=== PATIENT | male | born 1930 | race Caucasian/White ===

== ENCOUNTER 2016-10-24 18:34 | Emergency (ER) | payer MEDICARE, OTHER ==
--- NOTE | 2016-10-24 19:29 | UC ---
HPI Febrile Illness - HPI Summary HPI Summary: Fever today and feels foggy, right leg tender swollen-had a torn Achilles tendon , the swelling resolved but is now getting very swollen and tender has calf pain and tender erythema anterior lower leg - History of Current Complaint Chief Complaint: UCGeneralIllness Time Seen by Provider: 10/24/16 18:45 Hx Obtained From: Patient Onset/Duration: Started Hours Ago, Still Present Time of Onset: 08:00 Timing: Constant Temperature: 100.8 F Initial Severity: Moderate Current Severity: Moderate Aggravating Factors: Nothing Alleviating Factors: Nothing Associated Signs and Symptoms: Negative, Leg Swelling, Myalgia, Weakness, Other : - feels "Off" - Allergy/Home Medications Allergies/Adverse Reactions: Allergies Allergy/AdvReac Type Severity Reaction Status Date / Time Penicillins Allergy Unknown Unknown Verified 10/24/16 20:05 Reaction Details Home Medications: Home Medications Eplerenone [Inspra] 25 mg PO DAILY 10/24/16 [History Confirmed 10/24/16] Levothyroxine TAB* [Synthroid TAB*] 50 mcg PO DAILY 10/24/16 [History Confirmed 10/24/16] PMH/Surg Hx/FS Hx/Imm Hx Previously Healthy: No Endocrine/Hematology History: Reports: Hx Thyroid Disease Denies: Hx Diabetes Cardiovascular History: Reports: Hx Coronary Artery Disease - mild, Hx Hypercholesterolemia, Hx Hypertension, Hx Valvular Heart Disease - AORTIC VALVE , Other Cardiovascular Problems/Disorders - aortic stenosis Denies: Hx Angina, Hx Pacemaker/ICD Respiratory History: Denies: Hx Asthma, Hx Chronic Obstructive Pulmonary Disease (COPD) History: Denies: Hx Dialysis, Hx Renal Disease Sensory History: Denies: Hx Hearing Aid Neurological History: Denies: Hx CVA Psychiatric History: Denies: Hx Panic Disorder - Surgical History Surgery Procedure, Year, and Place: 2 CORONARY STENTS JULY 2013 [facility]. AORTIC HEART VALVE REPLACEMENT- PORCELINE VALVE- 2002-[facility]. TONSILLECTOMY Infectious Disease History: Yes Infectious Disease History: Reports: Hx Hepatitis Denies: History Other Infectious Disease, Traveled Outside the [place] in Last 30 Days - Family History Known Family History: Positive: None - no cardiovascualar issues in family lineage - Social History Alcohol Use: Rare Alcohol Amount: 1 GLASS DAILY Hx Substance Use: No Substance Use Type: Reports: None Hx Tobacco Use: No Smoking Status (MU): Never Smoked Tobacco Review of Systems Constitutional: Fever, Fatigue Skin: Negative Eyes: Negative ENT: Negative Respiratory: Negative Cardiovascular: Negative Gastrointestinal: Negative Genitourinary: Negative Motor: Negative Neurovascular: Negative Musculoskeletal: Edema - right lower leg Neurological: Negative Psychological: Negative All Other Systems Reviewed And Are Negative: Yes Physical Exam Triage Information Reviewed: Yes Appearance: Well-Nourished, Ill-Appearing - mild, Pain Distress - mild Vital Signs: Initial Vital Signs Temp 98.9 F 10/24/16 18:37 Pulse 95 10/24/16 18:37 Resp 20 10/24/16 18:37 BP 134/76 10/24/16 18:37 Pulse Ox 99 10/24/16 18:37 Vital Signs Reviewed: Yes Eye Exam: Normal Eyes: Positive: Conjunctiva Clear ENT Exam: Normal ENT: Positive: Normal ENT inspection, Hearing grossly normal, Pharynx normal, TMs normal. Negative: Nasal congestion, Nasal drainage, Tonsillar swelling, Tonsillar exudate, Trismus, Muffled/hoarse voice Dental Exam: Normal Neck exam: Normal Neck: Positive: Supple, Nontender, No Lymphadenopathy Respiratory Exam: Normal Respiratory: Positive: Chest non-tender, Lungs clear, Normal breath sounds, No respiratory distress, No accessory muscle use Cardiovascular Exam: Normal Cardiovascular: Positive: RRR, No Murmur, Pulses Normal, Brisk Capillary Refill Abdominal Exam: Normal Abdomen Description: Positive: Nontender, No Organomegaly, Soft Bowel Sounds: Positive: Present Musculoskeletal Exam: Normal Musculoskeletal: Positive: Strength Intact, ROM Intact, Edema @ - right lower leg Neurological Exam: Normal Neurological: Positive: Alert, Muscle Tone Normal Psychological Exam: Normal Skin Exam: Other Skin: Positive: Other - right anterior lower leg warm and swollen Course/Dx - Course Assessment/Plan: transfer to hospital for further evaluation - Febrile Illness Differential Diagnoses: Cellulitis, Fever of Unknown Origin, Other: - DVT - Diagnoses Clinic Provider Diagnoses: right lower leg edema, febrile illness - Provider Notifications Time Discussed With Above Provider: 19:00 - david LOMELI Instructed by Provider To: Transfer Discharge - Discharge Plan Condition: Good Disposition: AGAINST MEDICAL ADVICE Referrals: Pop Santos MD [Medical Doctor] -
[2016-10-24 19:41] VITALS: BP 128/68
== END 2016-10-24 19:30 | disposition left against medical advice (07) ==
LOC: UCEAST 18:34
DX: R60.0 Localized edema (principal); E07.9 Disorder of thyroid, unspecified; I25.10 Atherosclerotic heart disease of native coronary artery without angina pectoris; Z98.61 Coronary angioplasty status; E78.00 Pure hypercholesterolemia, unspecified; I10 Essential (primary) hypertension; Z95.2 Presence of prosthetic heart valve; Z88.0 Allergy status to penicillin
CPT/HCPCS: 99212; G0463

== ENCOUNTER 2016-10-24 19:49 | Observation (INO) | payer MEDICARE, OTHER ==
[2016-10-24] MEDS ORDERED: NS 0.9% 1000 ML* 2,000 ML IV ONE (21:39)
[2016-10-24] MEDS ORDERED: cefTRIAXone(*) 1 GM in NS 0.9% 50 ML* 50 ML IVPB ONE (21:39)
[2016-10-24 22:16] LABS: Hematocrit 39 % (42-52); Hemoglobin 13.2 g/dl (14.0-18.0); Mean Corpuscular HGB Conc 34 g/dl (31-36); Mean Corpuscular Hemoglobin 32 pg (27-31); Mean Corpuscular Volume 93 fL (80-94); Mean Platelet Volume 8 um3 (7.4-10.4); Red Blood Count 4.17 10^6/ul (4.0-5.4); Red Cell Distribution Width 14 % (10.5-15); White Blood Count 12.2 10^3/ul (3.5-10.8)
[2016-10-24 22:19] LABS: Add Diff/Slide Review? Slide Review Added; Comments Flag Yes
[2016-10-24 22:32] LABS: Albumin 3.8 g/dL (3.2-5.2); BUN/Creatinine Ratio 15.5 (8-20); C Reactive Protein 11.95 mg/L (< 5.00); Calcium 9.3 mg/dL (8.6-10.3); EGFR African American 68.4 (>60); EGFR Non-African American 53.2 (>60); Globulin 3.7 g/dL (2-4); Potassium 4.4 mmol/L (3.5-5.0); Total Bilirubin 0.8 mg/dL (0.2-1.0); Total Protein 7.5 g/dL (6.4-8.9)
[2016-10-24 22:33] LABS: Troponin I 0.04 ng/mL (<0.04)
[2016-10-25] MEDS ORDERED: Melatonin (NF) 3 MG TAB PO PRN (01:08)
[2016-10-25] MEDS ORDERED: Acetaminophen TAB* 325 MG PO PRN (01:08)
[2016-10-25] MEDS ORDERED: Ondansetron INJ* 2 MG/ML VIAL IV PRN (01:08)
[2016-10-25] MEDS ORDERED: traMADol TAB* 50 MG PO PRN (01:08)
--- NOTE | 2016-10-25 01:12 | HP ---
H&P (Free Text) History and Physical: PCP: TARAS Santos MD Cardiology: Rigoberto Acevedo MD Date/Time of Evaluation: 10/25/2016 0110 CC: fever HPI: Mr Desouza is an 85YO male HX porcine AVR, HLD, "borderline" hypothyroidism , & BPH who tore his R Achilles tendon 3 months ago which has been rehab'ing well. He went to bed 10/23/2016 w/o issues and awoke noting some mild increased swelling of the R calf over it's baseline & compared to the L. Throughout the day he became progressively fatigued with increasing pain in the R foot. He noted his temperature at home to be 100.8F after feeling feverish and decided to present for evaluation becoming quite surprised at the amount of redness the R ankle/foot had developed through the day as he had not looked at it since the AM. WBCs are 12k 87% neutrophils. Troponin is 0.04. Lab values are otherwise reasonably normal for him. ECG is benign. CXR is negative. He denies chest pain , SOB, palpitations, light-headedness, sweats, cough, congestion, change in bowel/bladder, or other issues. PMedHx porcine AVR CAD/stent HLD hypothyroidism torn R Achilles 3 months ago BPH Ambulatory Orders Multivitamins/Minerals TAB* [Theragran/minerals TAB*] 1 tab PO DAILY 12/16/12 Aspirin Low Dose CHEW TAB* [Aspirin Low Dose TAB*] 81 mg PO DAILY 01/02/15 Atorvastatin* [Lipitor*] 40 mg PO DAILY 01/02/15 Finasteride TAB* [Proscar TAB*] 5 mg PO DAILY 01/02/15 [place]-3 Fatty Acids (Nf) [Fish Oil (NF)] 2,000 mg PO DAILY 01/02/15 Eplerenone [Inspra] 25 mg PO DAILY 10/24/16 Levothyroxine TAB* [Synthroid TAB*] 50 mcg PO DAILY 10/24/16 Allergies Penicillins Allergy (Unknown, Verified 10/24/16 20:05) Unknown Reaction Details PSurgHx cardiac stent porcine AVR SocHx: no HX tobacco or recreational drugs, no significant alcohol; lives with his ; 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 ROS: as above, otherwise reviewed and all were negative Constitutional: NAD, normally developed, overweight white male vitals: Vital Signs Temp 38.2 C 10/24/16 21:40 Pulse 85 10/25/16 01:00 Resp 17 10/25/16 01:00 BP 141/78 10/25/16 01:00 Pulse Ox 98 10/25/16 01:00 Intake & Output 10/24/16 10/24/16 10/25/16 11:59 23:59 11:59 Weight 95.254 kg HEENM: atraumatic; sclera/conjunctiva: non-icteric/clear; hearing: clinically intact; oropharynx: clear, mucosa moist Neck: soft tissue: non-tender; thyroid: normal Pulmonary: clear to auscultation bilaterally, good aeration, no accessory muscle use CV: RR/RR, normal S1S2, no carotid bruit, no jugular venous distention, 2+ B DP/ PT, 1+ R ankle/2+ L ankle edema Abdominal: soft, non-distended, non-tender, no rebound/guarding/rigidity, normoactive bowel sounds, no hepatosplenomegaly or masses, no costovertebral angle tenderness Musculoskeletal: general: grossly intact; gait: stable Integumental: RLE with non-blanching blotch red to purplish bruise-like area of distal medina Psychiatric orientation: AA&O to PPS affect: calm mood: cooperative eye contact: good content: reliable responses: timely insight: good Testing: Lab Results 10/24/16 10/24/16 10/24/16 Range/Units 22:08 22:08 22:08 WBC 12.2 H (3.5-10.8) 10^3/ul RBC 4.17 (4.0-5.4) 10^6/ul Hgb 13.2 L (14.0-18.0) g/dl Hct 39 L (42-52) % MCV 93 (80-94) fL MCH 32 H (27-31) pg MCHC 34 (31-36) g/dl RDW 14 (10.5-15) % Plt Count 61 L (150-450) 10^3/ul MPV 8 (7.4-10.4) um3 Neut % (Auto) 87.6 H (38-83) % Lymph % (Auto) 4.2 L (25-47) % [place] % (Auto) 7.4 (1-9) % Eos % (Auto) 0.1 (0-6) % Baso % (Auto) 0.7 (0-2) % Absolute Neuts (auto) 10.7 H (1.5-7.7) 10^3/ul Absolute Lymphs (auto) 0.5 L (1.0-4.8) 10^3/ul Absolute Monos (auto) 0.9 H (0-0.8) 10^3/ul Absolute Eos (auto) 0 (0-0.6) 10^3/ul Absolute Basos (auto) 0.1 (0-0.2) 10^3/ul Absolute Nucleated RBC 0.01 10^3/ul Nucleated RBC % 0 INR (Anticoag Therapy) 1.01 (0.89-1.11) APTT 31.7 (26.0-36.3) seconds Sodium (133-145) mmol/L Potassium (3.5-5.0) mmol/L Chloride (101-111) mmol/L Carbon Dioxide (22-32) mmol/L Anion Gap (2-11) mmol/L BUN (6-24) mg/dL Creatinine (0.67-1.17) mg/dL Est GFR ( Amer) (>60) Est GFR (Non-Af Amer) (>60) BUN/Creatinine Ratio (8-20) Glucose (70-100) mg/dL Lactic Acid (0.5-2.0) mmol/L Calcium (8.6-10.3) mg/dL Total Bilirubin (0.2-1.0) mg/dL AST (13-39) U/L ALT (7-52) U/L Alkaline Phosphatase (34-104) U/L Troponin I (<0.04) ng/mL C-Reactive Protein (< 5.00) mg/L B-Natriuretic Peptide 96 ( - 100) pg/mL Total Protein (6.4-8.9) g/dL Albumin (3.2-5.2) g/dL Globulin (2-4) g/dL Albumin/Globulin Ratio (1-3) Lipase (11.0-82.0) U/L 10/24/16 10/24/16 Range/Units 22:08 22:08 WBC (3.5-10.8) 10^3/ul RBC (4.0-5.4) 10^6/ul Hgb (14.0-18.0) g/dl Hct (42-52) % MCV (80-94) fL MCH (27-31) pg MCHC (31-36) g/dl RDW (10.5-15) % Plt Count (150-450) 10^3/ul MPV (7.4-10.4) um3 Neut % (Auto) (38-83) % Lymph % (Auto) (25-47) % [place] % (Auto) (1-9) % Eos % (Auto) (0-6) % Baso % (Auto) (0-2) % Absolute Neuts (auto) (1.5-7.7) 10^3/ul Absolute Lymphs (auto) (1.0-4.8) 10^3/ul Absolute Monos (auto) (0-0.8) 10^3/ul Absolute Eos (auto) (0-0.6) 10^3/ul Absolute Basos (auto) (0-0.2) 10^3/ul Absolute Nucleated RBC 10^3/ul Nucleated RBC % INR (Anticoag Therapy) (0.89-1.11) APTT (26.0-36.3) seconds Sodium 134 (133-145) mmol/L Potassium 4.4 (3.5-5.0) mmol/L Chloride 103 (101-111) mmol/L Carbon Dioxide 25 (22-32) mmol/L Anion Gap 6 (2-11) mmol/L BUN 20 (6-24) mg/dL Creatinine 1.29 H (0.67-1.17) mg/dL Est GFR ( Amer) 68.4 (>60) Est GFR (Non-Af Amer) 53.2 (>60) BUN/Creatinine Ratio 15.5 (8-20) Glucose 135 H (70-100) mg/dL Lactic Acid 1.8 (0.5-2.0) mmol/L Calcium 9.3 (8.6-10.3) mg/dL Total Bilirubin 0.80 (0.2-1.0) mg/dL AST 22 (13-39) U/L ALT 20 (7-52) U/L Alkaline Phosphatase 52 (34-104) U/L Troponin I 0.04 H* (<0.04) ng/mL C-Reactive Protein 11.95 H (< 5.00) mg/L B-Natriuretic Peptide ( - 100) pg/mL Total Protein 7.5 (6.4-8.9) g/dL Albumin 3.8 (3.2-5.2) g/dL Globulin 3.7 (2-4) g/dL Albumin/Globulin Ratio 1.0 (1-3) Lipase 39 (11.0-82.0) U/L ECG, personally reviewed: 1 degree AV/RBBB rate 89, occasional PAC, no ischemia CXR, personally reviewed: no acute process US RLE DVT: negative Impression: 85M presenting with febrile cellulitis of RLE and indeterminate troponin DIAGNOSIS & PLAN Primary febrile cellulitis of RLE : IV ceftriaxone : IVFs : supportive care elevated troponin : suspect demand ischemia : trend, telemetry 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
[2016-10-25] MEDS ORDERED: NS 0.9% 1000 ML* 1,000 ML IV SCH (01:15)
[2016-10-25 01:20] LABS: Urine Bilirubin Negative (Negative); Urine Glucose Negative (Negative); Urine Nitrite Negative (Negative)
[2016-10-25 01:35] LABS: Urine Bacteria Absent (Absent)
[2016-10-25] MEDS: Omeprazole CAP* 20 MG PO SCH (05:39)
[2016-10-25 05:58] LABS: Hematocrit 36 % (42-52); Hemoglobin 12.4 g/dl (14.0-18.0); Mean Corpuscular HGB Conc 34 g/dl (31-36); Mean Corpuscular Hemoglobin 32 pg (27-31); Mean Corpuscular Volume 93 fL (80-94); Mean Platelet Volume 9 um3 (7.4-10.4); Red Blood Count 3.88 10^6/ul (4.0-5.4); Red Cell Distribution Width 14 % (10.5-15); White Blood Count 7.6 10^3/ul (3.5-10.8)
[2016-10-25 05:59] LABS: Comments Flag Yes
[2016-10-25 06:16] LABS: BUN/Creatinine Ratio 14.3 (8-20); Calcium 8.6 mg/dL (8.6-10.3); EGFR African American 80.5 (>60); EGFR Non-African American 62.6 (>60)
[2016-10-25 06:19] LABS: Troponin I 0.05 ng/mL (<0.04)
[2016-10-25] MEDS: Levothyroxine TAB* 50 MCG TAB PO SCH (06:21)
--- NOTE | 2016-10-25 07:27 | RAD ---
HISTORY: Fever COMPARISONS: May 21, 2015 VIEWS:1: Single frontal portable view of the chest at 9:11 PM FINDINGS: LINES AND TUBES: None. CARDIOMEDIASTINAL SILHOUETTE: The cardiomediastinal silhouette is normal for portable technique. PLEURA: The costophrenic angles are sharp. No pleural abnormalities are noted. LUNG PARENCHYMA: The lungs are clear. ABDOMEN: The upper abdomen is clear. There is no subphrenic gas. BONES AND SOFT TISSUES: The patient is status post median sternotomy. IMPRESSION: NO ACTIVE CARDIOPULMONARY DISEASE.
--- NOTE | 2016-10-25 07:41 | RAD ---
HISTORY: Right lower extremity edema COMPARISONS: None relevant TECHNIQUE: Multiple transverse and longitudinal ultrasound images were obtained of the right lower extremity from the level of the common femoral vein inferiorly through to the infrapopliteal veins using grayscale, color Doppler, and spectral Doppler imaging with and without compression and with augmentation. Comparison images were obtained of the contralateral common femoral vein. FINDINGS: There is suboptimal visualization of the peroneal veins. VEINS: The venous system of the right lower extremity is compressible throughout its course, with normal flow on color Doppler imaging and normal response to augmentation on spectral Doppler imaging. SOFT TISSUES: Unremarkable. OTHER FINDINGS: None. IMPRESSION: NO RIGHT LOWER EXTREMITY DEEP VEIN THROMBOSIS
[2016-10-25] MEDS ORDERED: Heparin VIAL(*) 5000 UNITS/ML VIAL (FIVE THOUSAND) SUBCUT SCH (08:00)
--- NOTE | 2016-10-25 08:09 | ED ---
Juan Tom Rebecca, scribed for Donovan Capps MD on 10/24/16 at 2134 . HPI Febrile Illness - HPI Summary HPI Summary: Pt is an 85 y/o M referred from [facility] who presents to ED c/o fever. Fever began today and has been constant since onset, reporting it was 100.8 at its highest. Sx aggravated and alleviated by nothing. Additionally c/o generalized weakness, fatigue, decreased appetite as well as mild pain, redness and swelling in the lower portion of the RLE. Denies CP, KARIMI, rhinorrhea, sore throat , and abd, neck or back pain. Allergy to Penicillin. - History of Current Complaint Chief Complaint: EDFever Time Seen by Provider: 10/24/16 21:32 Hx Obtained From: Patient Onset/Duration: Started Days Ago, Still Present Timing: Constant Temperature: 100.8 F Current Severity: Mild Pain Intensity: 4 - RLE Pain Scale Used: 0-10 Numeric Aggravating Factors: Nothing Alleviating Factors: Nothing Associated Signs and Symptoms: Swelling - Pain, erythema and swelling in the lowe rportion of the RLE, Weakness - Generalized, Other: - Fatigue, decreased appetite - Allergy/Home Medications Allergies/Adverse Reactions: Allergies Allergy/AdvReac Type Severity Reaction Status Date / Time Penicillins Allergy Unknown Unknown Verified 10/24/16 20:05 Reaction Details PMH/Surg Hx/FS Hx/Imm Hx Endocrine/Hematology History: Reports: Hx Thyroid Disease Denies: Hx Diabetes Cardiovascular History: Reports: Hx Coronary Artery Disease - mild, Hx Hypercholesterolemia, Hx Hypertension, Hx Valvular Heart Disease - AORTIC VALVE , Other Cardiovascular Problems/Disorders - aortic stenosis Denies: Hx Angina, Hx Pacemaker/ICD Respiratory History: Denies: Hx Asthma, Hx Chronic Obstructive Pulmonary Disease (COPD) History: Denies: Hx Dialysis, Hx Renal Disease Sensory History: Denies: Hx Hearing Aid Neurological History: Denies: Hx CVA Psychiatric History: Denies: Hx Panic Disorder - Surgical History Surgery Procedure, Year, and Place: 2 CORONARY STENTS JULY 2013 [facility]. AORTIC HEART VALVE REPLACEMENT- PORCELINE VALVE- 2002-[facility]. TONSILLECTOMY Infectious Disease History: Reports: Hx Hepatitis - "YEARS AGO" Denies: History Other Infectious Disease, Traveled Outside the [place] in Last 30 Days - Family History Known Family History: Positive: Other - CVA - Social History Alcohol Use: Rare Hx Substance Use: No Substance Use Type: Reports: None Hx Tobacco Use: No Smoking Status (MU): Never Smoked Tobacco Review of Systems Positive: Fever, Other - Generalized weakness Negative: Sore Throat, Nasal Discharge Negative: Chest Pain Positive: Other - Decreased appetite. Negative: Abdominal Pain Negative: Arthralgia - Denies neck and back pain Positive: Other - Swelling, eythema and mild pain in the lower portion of the RLE Negative: Headache All Other Systems Reviewed And Are Negative: Yes Physical Exam - Summary Physical Exam Summary: General: mildly ill appearing, no pain distress Skin: dry; has right anterior lower leg and foot erythema that is warm to the touch Head: normal Eyes: EOMI, SOFIYA ENT: normal Neck: supple, nontender Respiratory: CTA, breath sounds present Cardiovascular: RRR Abdomen: soft, nontender Bowel: present Musculoskeletal: strength/ROM intact; bilateral edema, worse on the R than the L Neurological: normal, sensory/motor intact, A&O x3 Psychological: affect/mood appropriate Triage Information Reviewed: Yes Vital Signs On Initial Exam: Initial Vitals Temp Pulse Resp BP Pulse Ox 98.1 F 77 16 131/71 96 10/24/16 20:00 10/24/16 20:00 10/24/16 20:00 10/24/16 20:00 10/24/16 20:00 Vital Signs Reviewed: Yes Diagnostics - Vital Signs Vital Signs Temp Pulse Resp BP Pulse Ox 10/24/16 20:00 98.1 F 77 16 131/71 96 - Laboratory Lab Results: Lab Results 10/24/16 10/24/16 10/24/16 Range/Units 22:08 22:08 22:08 WBC 12.2 H (3.5-10.8) 10^3/ul RBC 4.17 (4.0-5.4) 10^6/ul Hgb 13.2 L (14.0-18.0) g/dl Hct 39 L (42-52) % MCV 93 (80-94) fL MCH 32 H (27-31) pg MCHC 34 (31-36) g/dl RDW 14 (10.5-15) % Plt Count 61 L (150-450) 10^3/ul MPV 8 (7.4-10.4) um3 Neut % (Auto) 87.6 H (38-83) % Lymph % (Auto) 4.2 L (25-47) % [place] % (Auto) 7.4 (1-9) % Eos % (Auto) 0.1 (0-6) % Baso % (Auto) 0.7 (0-2) % Absolute Neuts (auto) 10.7 H (1.5-7.7) 10^3/ul Absolute Lymphs (auto) 0.5 L (1.0-4.8) 10^3/ul Absolute Monos (auto) 0.9 H (0-0.8) 10^3/ul Absolute Eos (auto) 0 (0-0.6) 10^3/ul Absolute Basos (auto) 0.1 (0-0.2) 10^3/ul Absolute Nucleated RBC 0.01 10^3/ul Nucleated RBC % 0 INR (Anticoag Therapy) 1.01 (0.89-1.11) APTT 31.7 (26.0-36.3) seconds Sodium (133-145) mmol/L Potassium (3.5-5.0) mmol/L Chloride (101-111) mmol/L Carbon Dioxide (22-32) mmol/L Anion Gap (2-11) mmol/L BUN (6-24) mg/dL Creatinine (0.67-1.17) mg/dL Est GFR ( Amer) (>60) Est GFR (Non-Af Amer) (>60) BUN/Creatinine Ratio (8-20) Glucose (70-100) mg/dL Lactic Acid (0.5-2.0) mmol/L Calcium (8.6-10.3) mg/dL Total Bilirubin (0.2-1.0) mg/dL AST (13-39) U/L ALT (7-52) U/L Alkaline Phosphatase (34-104) U/L Troponin I (<0.04) ng/mL C-Reactive Protein (< 5.00) mg/L B-Natriuretic Peptide 96 ( - 100) pg/mL Total Protein (6.4-8.9) g/dL Albumin (3.2-5.2) g/dL Globulin (2-4) g/dL Albumin/Globulin Ratio (1-3) Lipase (11.0-82.0) U/L Urine Color Urine Appearance Urine pH (5-9) Ur Specific [place] (1.010-1.030) Urine Protein (Negative) Urine Ketones (Negative) Urine Blood (Negative) Urine Nitrate (Negative) Urine Bilirubin (Negative) Urine Urobilinogen (Negative) Ur Leukocyte Esterase (Negative) Urine WBC (Auto) (Absent) Urine RBC (Auto) (Absent) Ur Squamous Epith Cells (Absent) Urine Bacteria (Absent) Urine Glucose (Negative) 10/24/16 10/24/16 10/25/16 Range/Units 22:08 22:08 00:35 WBC (3.5-10.8) 10^3/ul RBC (4.0-5.4) 10^6/ul Hgb (14.0-18.0) g/dl Hct (42-52) % MCV (80-94) fL MCH (27-31) pg MCHC (31-36) g/dl RDW (10.5-15) % Plt Count (150-450) 10^3/ul MPV (7.4-10.4) um3 Neut % (Auto) (38-83) % Lymph % (Auto) (25-47) % [place] % (Auto) (1-9) % Eos % (Auto) (0-6) % Baso % (Auto) (0-2) % Absolute Neuts (auto) (1.5-7.7) 10^3/ul Absolute Lymphs (auto) (1.0-4.8) 10^3/ul Absolute Monos (auto) (0-0.8) 10^3/ul Absolute Eos (auto) (0-0.6) 10^3/ul Absolute Basos (auto) (0-0.2) 10^3/ul Absolute Nucleated RBC 10^3/ul Nucleated RBC % INR (Anticoag Therapy) (0.89-1.11) APTT (26.0-36.3) seconds Sodium 134 (133-145) mmol/L Potassium 4.4 (3.5-5.0) mmol/L Chloride 103 (101-111) mmol/L Carbon Dioxide 25 (22-32) mmol/L Anion Gap 6 (2-11) mmol/L BUN 20 (6-24) mg/dL Creatinine 1.29 H (0.67-1.17) mg/dL Est GFR ( Amer) 68.4 (>60) Est GFR (Non-Af Amer) 53.2 (>60) BUN/Creatinine Ratio 15.5 (8-20) Glucose 135 H (70-100) mg/dL Lactic Acid 1.8 (0.5-2.0) mmol/L Calcium 9.3 (8.6-10.3) mg/dL Total Bilirubin 0.80 (0.2-1.0) mg/dL AST 22 (13-39) U/L ALT 20 (7-52) U/L Alkaline Phosphatase 52 (34-104) U/L Troponin I 0.04 H* (<0.04) ng/mL C-Reactive Protein 11.95 H (< 5.00) mg/L B-Natriuretic Peptide ( - 100) pg/mL Total Protein 7.5 (6.4-8.9) g/dL Albumin 3.8 (3.2-5.2) g/dL Globulin 3.7 (2-4) g/dL Albumin/Globulin Ratio 1.0 (1-3) Lipase 39 (11.0-82.0) U/L Urine Color Yellow Urine Appearance Clear Urine pH 7.0 (5-9) Ur Specific [place] 1.013 (1.010-1.030) Urine Protein 1+(30 mg/dl) H (Negative) Urine Ketones Negative (Negative) Urine Blood Negative (Negative) Urine Nitrate Negative (Negative) Urine Bilirubin Negative (Negative) Urine Urobilinogen Negative (Negative) Ur Leukocyte Esterase Trace H (Negative) Urine WBC (Auto) Trace(0-5/hpf) (Absent) Urine RBC (Auto) Trace(0-2/hpf) (Absent) Ur Squamous Epith Cells Present H (Absent) Urine Bacteria Absent (Absent) Urine Glucose Negative (Negative) Result Diagrams: 10/25/16 05:48 10/25/16 05:48 Lab Statement: Any lab studies that have been ordered have been reviewed, and results considered in the medical decision making process. - Radiology CXR Xray Interpretation: No Acute Changes Radiology Interpretation Completed By: ED Physician - Ultrasound No standard instances Ultrasound Interpretation: No Acute Changes - Venous Doppler Study: No deep vein thrombosis. Ultrasound Interpretation Completed By: Radiologist - EKG 0033 Cardiac Rate: NL - 89 bpm EKG Rhythm: Sinus Rhythm Ectopy: PACs EKG Interpretation: RBBB EKG Comparison: No Significant Change - from EKG on 05/21/2015 Re-Evaluation - Re-Evaluation First Eval Re-Evaluation Time: 00:55 Comment: Discussed CXR, US and EKG results with the pt. Discussed the option of admission. Course/Dx - Course Assessment/Plan: Pt is an 85 y/o M referred from [facility] who presents to ED c/o fever since earlier today, spiking at 100.8. Additionally c/o generalized weakness, fatigue, decreased appetite as well as mild pain, redness and swelling in the lower portion of the RLE. Denies CP, KARIMI, rhinorrhea, sore throat , and abd, neck or back pain. Allergy to Penicillin. Troponin of 0.04, WBC of 12.2, CRP of 11.95. CXR and US reveal no acute findings. EKG shows no acute changes from prior EKG. Discussed care of pt with Dr. Crain who accepts pt for admission. Pt will be admitted. He understands and agrees. NO CRITICAL CARE TIME. ADMIT HOSPITALIST STABLE. - Diagnoses Provider Diagnoses: Cellulitis, Troponin level elevated - Provider Notifications Discussed Care Of Patient With: Aurelio Crain Time Discussed With Above Provider: 01:04 Instructed by Provider To: Other - Accepts pt for admisison. Discharge - Discharge Plan Condition: Stable Disposition: ADMITTED TO [facility] The documentation as recorded by the Juan beal Rebecca accurately reflects the service I personally performed and the decisions made by me, Donovan Capps MD.
[2016-10-25] MEDS: Atorvastatin* 40 MG TAB PO SCH (08:23)
[2016-10-25] MEDS: CMCS - Epleronone (NF) 25 MG TAB PO SCH (08:24)
[2016-10-25] MEDS: Aspirin Low Dose CHEW TAB* 81 MG PO SCH (08:24)
[2016-10-25] MEDS: Finasteride TAB* 5 MG PO SCH (08:24)
[2016-10-25] MEDS ORDERED: Docusate CAP* 100 MG PO SCH (09:00)
[2016-10-25] MEDS: Heparin VIAL(*) 5000 UNITS/ML VIAL (FIVE THOUSAND) SUBCUT SCH ×3 (10:07→21:46)
[2016-10-25 10:22] LABS: TSH (Thyroid Stimulating Horm) 1.37 mcIU/mL (0.34-5.60)
--- NOTE | 2016-10-25 10:45 | PN ---
Subjective Date of Service: 10/25/16 Interval History: R leg looks a little better since admission. Slight pain, mostly from his recent partial Achilles tendon tear. No new c/o. No chills, sweats. Good appetite. Objective Active Medications: Acetaminophen (Tylenol Tab*) 650 mg PO Q6H PRN PRN Reason: FEVER/PAIN Aspirin (Aspirin Low Dose Tab*) 81 mg PO DAILY [facility] Last Admin: 10/25/16 08:24 Dose: 81 mg Atorvastatin Calcium (Lipitor*) 40 mg PO DAILY [facility] Last Admin: 10/25/16 08:23 Dose: 40 mg Docusate Sodium (Colace Cap*) 200 mg PO DAILY [facility] Eplerenone (Inspra (Nf)) 25 mg PO DAILY [facility] PRN Reason: Protocol Last Admin: 10/25/16 08:24 Dose: 25 mg Finasteride (Proscar Tab*) 5 mg PO DAILY [facility] Last Admin: 10/25/16 08:24 Dose: 5 mg Heparin Sodium (Porcine) (Heparin Vial(*)) 5,000 units SUBCUT Q8HR [facility] Last Admin: 10/25/16 10:07 Dose: 5,000 units Ceftriaxone Sodium 1,000 mg/ (Sodium Chloride) 50 mls @ 200 mls/hr IVPB Q24H [facility] Levothyroxine Sodium (Synthroid Tab*) 50 mcg PO DAILY@0600 [facility] Last Admin: 10/25/16 06:21 Dose: 50 mcg Omeprazole (Prilosec Cap*) 20 mg PO DAILY@0600 [facility] Last Admin: 10/25/16 05:39 Dose: 20 mg Ondansetron HCl (Zofran Inj*) 4 mg IV Q6H PRN PRN Reason: NAUSEA Tramadol HCl (Ultram*) 50 mg PO Q6H PRN PRN Reason: PAIN Vital Signs 10/25/16 10/25/16 10/25/16 01:46 04:01 07:33 Temperature 98.1 F 99.1 F 98.2 F Pulse Rate 92 85 79 Respiratory 24 16 20 Rate Blood Pressure 133/69 146/67 127/60 (mmHg) O2 Sat by Pulse 99 97 96 Oximetry 10/25/16 08:00 Temperature Pulse Rate Respiratory 18 Rate Blood Pressure (mmHg) O2 Sat by Pulse Oximetry Oxygen Devices in Use Now: None Appearance: Alert, partly up in bed. In good spirits. Looks comfortable. Eyes: No Scleral Icterus Extremities: No Clubbing, Cyanosis, - - R leg warmer than L, swollen c/w L leg. Skin: No Nodules or Sclerosis, - - Petechial/confluent rash R lower leg. Neurological: Alert and Oriented x 3, NL Sensation Result Diagrams: 10/25/16 05:48 10/25/16 05:48 Additional Lab and Data: Lab Results 10/24/16 10/24/16 10/24/16 Range/Units 22:08 22:08 22:08 WBC 12.2 H (3.5-10.8) 10^3/ul RBC 4.17 (4.0-5.4) 10^6/ul Hgb 13.2 L (14.0-18.0) g/dl Hct 39 L (42-52) % MCV 93 (80-94) fL MCH 32 H (27-31) pg MCHC 34 (31-36) g/dl RDW 14 (10.5-15) % Plt Count 61 L (150-450) 10^3/ul MPV 8 (7.4-10.4) um3 Neut % (Auto) 87.6 H (38-83) % Lymph % (Auto) 4.2 L (25-47) % [place] % (Auto) 7.4 (1-9) % Eos % (Auto) 0.1 (0-6) % Baso % (Auto) 0.7 (0-2) % Absolute Neuts (auto) 10.7 H (1.5-7.7) 10^3/ul Absolute Lymphs (auto) 0.5 L (1.0-4.8) 10^3/ul Absolute Monos (auto) 0.9 H (0-0.8) 10^3/ul Absolute Eos (auto) 0 (0-0.6) 10^3/ul Absolute Basos (auto) 0.1 (0-0.2) 10^3/ul Absolute Nucleated RBC 0.01 10^3/ul Nucleated RBC % 0 INR (Anticoag Therapy) 1.01 (0.89-1.11) APTT 31.7 (26.0-36.3) seconds Sodium (133-145) mmol/L Potassium (3.5-5.0) mmol/L Chloride (101-111) mmol/L Carbon Dioxide (22-32) mmol/L Anion Gap (2-11) mmol/L BUN (6-24) mg/dL Creatinine (0.67-1.17) mg/dL Est GFR ( Amer) (>60) Est GFR (Non-Af Amer) (>60) BUN/Creatinine Ratio (8-20) Glucose (70-100) mg/dL Lactic Acid (0.5-2.0) mmol/L Calcium (8.6-10.3) mg/dL Total Bilirubin (0.2-1.0) mg/dL AST (13-39) U/L ALT (7-52) U/L Alkaline Phosphatase (34-104) U/L Troponin I (<0.04) ng/mL C-Reactive Protein (< 5.00) mg/L B-Natriuretic Peptide 96 ( - 100) pg/mL Total Protein (6.4-8.9) g/dL Albumin (3.2-5.2) g/dL Globulin (2-4) g/dL Albumin/Globulin Ratio (1-3) Lipase (11.0-82.0) U/L Urine Color Urine Appearance Urine pH (5-9) Ur Specific [place] (1.010-1.030) Urine Protein (Negative) Urine Ketones (Negative) Urine Blood (Negative) Urine Nitrate (Negative) Urine Bilirubin (Negative) Urine Urobilinogen (Negative) Ur Leukocyte Esterase (Negative) Urine WBC (Auto) (Absent) Urine RBC (Auto) (Absent) Ur Squamous Epith Cells (Absent) Urine Bacteria (Absent) Urine Glucose (Negative) 10/24/16 10/24/16 10/25/16 Range/Units 22:08 22:08 00:35 WBC (3.5-10.8) 10^3/ul RBC (4.0-5.4) 10^6/ul Hgb (14.0-18.0) g/dl Hct (42-52) % MCV (80-94) fL MCH (27-31) pg MCHC (31-36) g/dl RDW (10.5-15) % Plt Count (150-450) 10^3/ul MPV (7.4-10.4) um3 Neut % (Auto) (38-83) % Lymph % (Auto) (25-47) % [place] % (Auto) (1-9) % Eos % (Auto) (0-6) % Baso % (Auto) (0-2) % Absolute Neuts (auto) (1.5-7.7) 10^3/ul Absolute Lymphs (auto) (1.0-4.8) 10^3/ul Absolute Monos (auto) (0-0.8) 10^3/ul Absolute Eos (auto) (0-0.6) 10^3/ul Absolute Basos (auto) (0-0.2) 10^3/ul Absolute Nucleated RBC 10^3/ul Nucleated RBC % INR (Anticoag Therapy) (0.89-1.11) APTT (26.0-36.3) seconds Sodium 134 (133-145) mmol/L Potassium 4.4 (3.5-5.0) mmol/L Chloride 103 (101-111) mmol/L Carbon Dioxide 25 (22-32) mmol/L Anion Gap 6 (2-11) mmol/L BUN 20 (6-24) mg/dL Creatinine 1.29 H (0.67-1.17) mg/dL Est GFR ( Amer) 68.4 (>60) Est GFR (Non-Af Amer) 53.2 (>60) BUN/Creatinine Ratio 15.5 (8-20) Glucose 135 H (70-100) mg/dL Lactic Acid 1.8 (0.5-2.0) mmol/L Calcium 9.3 (8.6-10.3) mg/dL Total Bilirubin 0.80 (0.2-1.0) mg/dL AST 22 (13-39) U/L ALT 20 (7-52) U/L Alkaline Phosphatase 52 (34-104) U/L Troponin I 0.04 H* (<0.04) ng/mL C-Reactive Protein 11.95 H (< 5.00) mg/L B-Natriuretic Peptide ( - 100) pg/mL Total Protein 7.5 (6.4-8.9) g/dL Albumin 3.8 (3.2-5.2) g/dL Globulin 3.7 (2-4) g/dL Albumin/Globulin Ratio 1.0 (1-3) Lipase 39 (11.0-82.0) U/L Urine Color Yellow Urine Appearance Clear Urine pH 7.0 (5-9) Ur Specific [place] 1.013 (1.010-1.030) Urine Protein 1+(30 mg/dl) H (Negative) Urine Ketones Negative (Negative) Urine Blood Negative (Negative) Urine Nitrate Negative (Negative) Urine Bilirubin Negative (Negative) Urine Urobilinogen Negative (Negative) Ur Leukocyte Esterase Trace H (Negative) Urine WBC (Auto) Trace(0-5/hpf) (Absent) Urine RBC (Auto) Trace(0-2/hpf) (Absent) Ur Squamous Epith Cells Present H (Absent) Urine Bacteria Absent (Absent) Urine Glucose Negative (Negative) Assess/Plan/Problems-Billing Assessment: - Patient Problems (1) Cellulitis and abscess of foot Current Visit: Yes Status: Acute Code(s): L03.119 - CELLULITIS OF UNSPECIFIED PART OF LIMB; L02.619 - CUTANEOUS ABSCESS OF UNSPECIFIED FOOT SNOMED Code(s): 997725168 Comment: Cellulitis only, R lower leg. Some petechia/hemorrhage due to his chronic thrombocytopenia. He got 1 dose ceftriaxone 11 PM 10/24, will give second dose 5 PM 10/25. Pt advised to elevate his R leg as much as possible. (2) H/O aortic valve replacement with porcine valve Current Visit: Yes Status: Acute Code(s): Z95.3 - PRESENCE OF XENOGENIC HEART VALVE SNOMED Code(s): 00710951751475 Comment: Followed by Dr. Acevedo. (3) CAD (coronary artery disease) Current Visit: Yes Status: Acute Code(s): I25.10 - ATHSCL HEART DISEASE OF [place] CORONARY ARTERY W/O ANG PCTRS SNOMED Code(s): 06206337 Comment: Continue ASA, statin. (4) Hypothyroid Current Visit: Yes Status: Acute Code(s): E03.9 - HYPOTHYROIDISM, UNSPECIFIED SNOMED Code(s): 69558821 Comment: TSH wnl 10/25/16. Continue levothyroxine home dose. (5) Thrombocytopenia Current Visit: Yes Status: Acute Code(s): D69.6 - THROMBOCYTOPENIA, UNSPECIFIED SNOMED Code(s): 235575540 Comment: Chronic, at least since 2010. 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 smoldering myeloma. He is not aware of this diagnosis, denies ever getting chemo. 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 (6) Partial tear of Achilles tendon Current Visit: Yes Status: Acute Code(s): S86.019A - STRAIN OF UNSPECIFIED ACHILLES TENDON, INITIAL ENCOUNTER SNOMED Code(s): 836177120 Comment: Occurred about 07/2016, discharged fromt PT. Mild pain.
[2016-10-25] MEDS ORDERED: cefTRIAXone VIAL(*) 1,000 MG in NS 0.9% 50 ML* 50 ML IVPB SCH ×2 (17:00→21:00)
[2016-10-26] MEDS: Omeprazole CAP* 20 MG PO SCH (07:19)
[2016-10-26] MEDS: Heparin VIAL(*) 5000 UNITS/ML VIAL (FIVE THOUSAND) SUBCUT SCH (07:19)
[2016-10-26] MEDS: Levothyroxine TAB* 50 MCG TAB PO SCH (07:20)
[2016-10-26] MEDS: CMCS - Epleronone (NF) 25 MG TAB PO SCH (08:44)
[2016-10-26] MEDS: Aspirin Low Dose CHEW TAB* 81 MG PO SCH (08:45)
[2016-10-26] MEDS: Finasteride TAB* 5 MG PO SCH (08:45)
[2016-10-26] MEDS: Atorvastatin* 40 MG TAB PO SCH (08:47)
[2016-10-26] MEDS ORDERED: Docusate CAP* 100 MG PO SCH (09:00)
[2016-10-26 09:20] VITALS: BP 158/69
--- NOTE | 2016-10-26 10:42 | PN ---
Subjective Date of Service: 10/26/16 Interval History: Pt is feeling well. He states the warmth and swelling of the R lower leg has lessened. His leg is still much more swollen than usual however. He thinks the discoloration is about the same. He feels ready for d/c home. Family History: Unchanged from Admission Social History: Unchanged from Admission Past Medical History: Unchanged from Admission Objective Active Medications: Acetaminophen (Tylenol Tab*) 650 mg PO Q6H PRN PRN Reason: FEVER/PAIN Aspirin (Aspirin Low Dose Tab*) 81 mg PO DAILY [facility] Last Admin: 10/26/16 08:45 Dose: 81 mg Atorvastatin Calcium (Lipitor*) 40 mg PO DAILY [facility] Last Admin: 10/26/16 08:47 Dose: 40 mg Docusate Sodium (Colace Cap*) 200 mg PO DAILY [facility] Last Admin: 10/26/16 08:47 Dose: Not Given Eplerenone (Inspra (Nf)) 25 mg PO DAILY [facility] PRN Reason: Protocol Last Admin: 10/26/16 08:44 Dose: 25 mg Finasteride (Proscar Tab*) 5 mg PO DAILY [facility] Last Admin: 10/26/16 08:45 Dose: 5 mg Heparin Sodium (Porcine) (Heparin Vial(*)) 5,000 units SUBCUT Q8HR [facility] Last Admin: 10/26/16 07:19 Dose: 5,000 units Ceftriaxone Sodium 1,000 mg/ (Sodium Chloride) 50 mls @ 200 mls/hr IVPB Q24H [facility] Last Admin: 10/25/16 16:19 Dose: 200 mls/hr Levothyroxine Sodium (Synthroid Tab*) 50 mcg PO DAILY@0600 [facility] Last Admin: 10/26/16 07:20 Dose: 50 mcg Omeprazole (Prilosec Cap*) 20 mg PO DAILY@0600 [facility] Last Admin: 10/26/16 07:19 Dose: 20 mg Ondansetron HCl (Zofran Inj*) 4 mg IV Q6H PRN PRN Reason: NAUSEA Tramadol HCl (Ultram*) 50 mg PO Q6H PRN PRN Reason: PAIN Vital Signs 10/25/16 10/25/16 10/25/16 11:21 15:37 19:31 Temperature 98.7 F 97.7 F 97.6 F Pulse Rate 64 57 56 Respiratory 16 16 20 Rate Blood Pressure 126/55 119/55 125/51 (mmHg) O2 Sat by Pulse 97 96 98 Oximetry 10/25/16 10/25/16 10/26/16 20:00 21:54 03:41 Temperature 98.1 F 97.9 F Pulse Rate 66 68 Respiratory 20 16 Rate Blood Pressure 138/64 126/64 (mmHg) O2 Sat by Pulse 100 97 Oximetry 10/26/16 08:02 Temperature 97.4 F Pulse Rate 62 Respiratory 16 Rate Blood Pressure 158/69 (mmHg) O2 Sat by Pulse 100 Oximetry Oxygen Devices in Use Now: None Appearance: Elderly male who appears younger than his stated age sitting up in bed, NAD Eyes: No Scleral Icterus Ears/Nose/Mouth/Throat: Mucous Membranes Moist Respiratory: Symmetrical Chest Expansion and Respiratory Effort, Clear to Auscultation Cardiovascular: NL Sounds; No Murmurs; No JVD, RRR, - - 1+ L LE edema, 2+ R LE edema Abdominal: NL Sounds; No Tenderness; No Distention Extremities: No Clubbing, Cyanosis Skin: No Nodules or Sclerosis, - - petechial appearing discoloration of the R anterior lower leg, no significant warmth Neurological: Alert and Oriented x 3 Result Diagrams: 10/25/16 05:48 10/25/16 05:48 Additional Lab and Data: Lab Results 10/24/16 10/24/16 10/24/16 Range/Units 22:08 22:08 22:08 WBC 12.2 H (3.5-10.8) 10^3/ul RBC 4.17 (4.0-5.4) 10^6/ul Hgb 13.2 L (14.0-18.0) g/dl Hct 39 L (42-52) % MCV 93 (80-94) fL MCH 32 H (27-31) pg MCHC 34 (31-36) g/dl RDW 14 (10.5-15) % Plt Count 61 L (150-450) 10^3/ul MPV 8 (7.4-10.4) um3 Neut % (Auto) 87.6 H (38-83) % Lymph % (Auto) 4.2 L (25-47) % [place] % (Auto) 7.4 (1-9) % Eos % (Auto) 0.1 (0-6) % Baso % (Auto) 0.7 (0-2) % Absolute Neuts (auto) 10.7 H (1.5-7.7) 10^3/ul Absolute Lymphs (auto) 0.5 L (1.0-4.8) 10^3/ul Absolute Monos (auto) 0.9 H (0-0.8) 10^3/ul Absolute Eos (auto) 0 (0-0.6) 10^3/ul Absolute Basos (auto) 0.1 (0-0.2) 10^3/ul Absolute Nucleated RBC 0.01 10^3/ul Nucleated RBC % 0 INR (Anticoag Therapy) 1.01 (0.89-1.11) APTT 31.7 (26.0-36.3) seconds Sodium (133-145) mmol/L Potassium (3.5-5.0) mmol/L Chloride (101-111) mmol/L Carbon Dioxide (22-32) mmol/L Anion Gap (2-11) mmol/L BUN (6-24) mg/dL Creatinine (0.67-1.17) mg/dL Est GFR ( Amer) (>60) Est GFR (Non-Af Amer) (>60) BUN/Creatinine Ratio (8-20) Glucose (70-100) mg/dL Lactic Acid (0.5-2.0) mmol/L Calcium (8.6-10.3) mg/dL Total Bilirubin (0.2-1.0) mg/dL AST (13-39) U/L ALT (7-52) U/L Alkaline Phosphatase (34-104) U/L Troponin I (<0.04) ng/mL C-Reactive Protein (< 5.00) mg/L B-Natriuretic Peptide 96 ( - 100) pg/mL Total Protein (6.4-8.9) g/dL Albumin (3.2-5.2) g/dL Globulin (2-4) g/dL Albumin/Globulin Ratio (1-3) Lipase (11.0-82.0) U/L Urine Color Urine Appearance Urine pH (5-9) Ur Specific [place] (1.010-1.030) Urine Protein (Negative) Urine Ketones (Negative) Urine Blood (Negative) Urine Nitrate (Negative) Urine Bilirubin (Negative) Urine Urobilinogen (Negative) Ur Leukocyte Esterase (Negative) Urine WBC (Auto) (Absent) Urine RBC (Auto) (Absent) Ur Squamous Epith Cells (Absent) Urine Bacteria (Absent) Urine Glucose (Negative) 10/24/16 10/24/16 10/25/16 Range/Units 22:08 22:08 00:35 WBC (3.5-10.8) 10^3/ul RBC (4.0-5.4) 10^6/ul Hgb (14.0-18.0) g/dl Hct (42-52) % MCV (80-94) fL MCH (27-31) pg MCHC (31-36) g/dl RDW (10.5-15) % Plt Count (150-450) 10^3/ul MPV (7.4-10.4) um3 Neut % (Auto) (38-83) % Lymph % (Auto) (25-47) % [place] % (Auto) (1-9) % Eos % (Auto) (0-6) % Baso % (Auto) (0-2) % Absolute Neuts (auto) (1.5-7.7) 10^3/ul Absolute Lymphs (auto) (1.0-4.8) 10^3/ul Absolute Monos (auto) (0-0.8) 10^3/ul Absolute Eos (auto) (0-0.6) 10^3/ul Absolute Basos (auto) (0-0.2) 10^3/ul Absolute Nucleated RBC 10^3/ul Nucleated RBC % INR (Anticoag Therapy) (0.89-1.11) APTT (26.0-36.3) seconds Sodium 134 (133-145) mmol/L Potassium 4.4 (3.5-5.0) mmol/L Chloride 103 (101-111) mmol/L Carbon Dioxide 25 (22-32) mmol/L Anion Gap 6 (2-11) mmol/L BUN 20 (6-24) mg/dL Creatinine 1.29 H (0.67-1.17) mg/dL Est GFR ( Amer) 68.4 (>60) Est GFR (Non-Af Amer) 53.2 (>60) BUN/Creatinine Ratio 15.5 (8-20) Glucose 135 H (70-100) mg/dL Lactic Acid 1.8 (0.5-2.0) mmol/L Calcium 9.3 (8.6-10.3) mg/dL Total Bilirubin 0.80 (0.2-1.0) mg/dL AST 22 (13-39) U/L ALT 20 (7-52) U/L Alkaline Phosphatase 52 (34-104) U/L Troponin I 0.04 H* (<0.04) ng/mL C-Reactive Protein 11.95 H (< 5.00) mg/L B-Natriuretic Peptide ( - 100) pg/mL Total Protein 7.5 (6.4-8.9) g/dL Albumin 3.8 (3.2-5.2) g/dL Globulin 3.7 (2-4) g/dL Albumin/Globulin Ratio 1.0 (1-3) Lipase 39 (11.0-82.0) U/L Urine Color Yellow Urine Appearance Clear Urine pH 7.0 (5-9) Ur Specific [place] 1.013 (1.010-1.030) Urine Protein 1+(30 mg/dl) H (Negative) Urine Ketones Negative (Negative) Urine Blood Negative (Negative) Urine Nitrate Negative (Negative) Urine Bilirubin Negative (Negative) Urine Urobilinogen Negative (Negative) Ur Leukocyte Esterase Trace H (Negative) Urine WBC (Auto) Trace(0-5/hpf) (Absent) Urine RBC (Auto) Trace(0-2/hpf) (Absent) Ur Squamous Epith Cells Present H (Absent) Urine Bacteria Absent (Absent) Urine Glucose Negative (Negative) Assess/Plan/Problems-Billing Mr Desouza is an 85 yo M who has a h/o CAD, hypothyroidism, HLD and BPH who presented to the ER with c/o redness, warmth and swelling of the R lower leg. - Patient Problems (1) Cellulitis of right leg Current Visit: Yes Status: Acute Code(s): L03.115 - CELLULITIS OF RIGHT LOWER LIMB SNOMED Code(s): 443807578 Comment: Improving swelling, warmth but the discoloration appears not much better to the patient. He will continue on vantin to complete a full 7 days of therapy. He has been instructed to follow up with his PCP later this week if possible. He will continue to monitor his leg for improvement. (2) Elevated troponin Current Visit: Yes Status: Acute Code(s): R74.8 - ABNORMAL LEVELS OF OTHER SERUM ENZYMES SNOMED Code(s): 589183865 Comment: Likely demand ischemia related to infection, fever. He has been chest pain free prior to and during the hospitalization. If he has any chest pain he has been instructed to return to the ER for evaluation. (3) Thrombocytopenia Current Visit: Yes Status: Acute Code(s): D69.6 - THROMBOCYTOPENIA, UNSPECIFIED SNOMED Code(s): 158896992 Comment: This has been a chronic issue for the patient. He will continue to follow with oncology. (4) CAD (coronary artery disease) Current Visit: Yes Status: Acute Code(s): I25.10 - ATHSCL HEART DISEASE OF [place] CORONARY ARTERY W/O ANG PCTRS SNOMED Code(s): 35549034 Comment: Continue ASA and lipitor. (5) Hypothyroid Current Visit: Yes Status: Acute Code(s): E03.9 - HYPOTHYROIDISM, UNSPECIFIED SNOMED Code(s): 52713524 Comment: TSH in normal range 10/25/16. Continue levothyroxine at home dose. (6) DVT prophylaxis Current Visit: Yes Status: Acute Code(s): GGN3330 - SNOMED Code(s): 711105940 Comment: SQ heparin (7) Full code status Current Visit: Yes Status: Acute Code(s): Z78.9 - OTHER SPECIFIED HEALTH STATUS SNOMED Code(s): 401740178
--- NOTE | 2016-10-27 11:32 | DS ---
CC: Dr. Santos * DISCHARGE SUMMARY: DATE OF ADMISSION: 10/25/16 DATE OF DISCHARGE: 10/26/16 PRIMARY CARE PROVIDER: Dr. Santos. PRINCIPAL DIAGNOSIS: Right lower extremity cellulitis. SECONDARY DIAGNOSES: 1. Chronic thrombocytopenia. 2. Porcine aortic valve replacement. 3. Coronary artery disease. 4. Hyperlipidemia. 5. Hypotension. 6. Benign prostatic hypertrophy. DISCHARGE MEDICATIONS: 1. Levothyroxine 50 mcg p.o. daily. 2. Finasteride 5 mg p.o. daily. 3. 25 mg p.o. daily. 4. Lipitor 40 mg p.o. daily. 5. Aspirin 81 mg p.o. daily. 6. [place]-3 fatty acid 2000 mg p.o. daily. 7. Multivitamin one tablet p.o. daily. 8. Vantin 400 mg p.o. q. 12 hours x 10 doses. HOSPITAL COURSE: Mr. Desouza is an 85-year-old male who presented to the emergency room on 10/24/16 with complaints of right lower extremity redness, swelling, and warmth. The patient was diagnosed with a right lower extremity cellulitis and admitted to the hospital and started on ceftriaxone. The patient , over the course of approximately 36 hours, had improvement in the right lower extremity in that it is much less warm and slightly less swollen. Of note, the patient did have an Achilles tendon injury on the right relatively recently and had noted that this leg had been somewhat more swollen for some period of time. The patient did notice discoloration of the anterior of the right lower leg. This did not improve much during the course of the hospitalization. This appears to be somewhat petechial in nature and not like a true cellulitis. The patient did have an elevated white blood cell count of 12,120 on the day of presentation to the emergency room. It trended to 7600 on the day prior to discharge. The patient was initially febrile in the emergency room but this too resolved. The patient is felt to be stable for discharge home today, . He will continue on Vantin 400 mg p.o. twice daily x10 more doses. I have asked that the patient follow up with his primary care provider for reevaluation of the right lower extremity. FOLLOWUP CONCERNS: The patient is being discharged home today, 10/26/16. ACTIVITY: Activity level is as tolerated. DIET: Regular. CONDITION ON DISCHARGE: Stable. TIME SPENT: 35 minutes was spent discharging this patient. [id number]/[facility] #: [id number] MTDLaney
== END 2016-10-26 13:00 | disposition home or self-care (01) ==
LOC: ED 19:49 → MEDTELE 10-25 01:04 → INTOOBSV 10-25 01:04 → MED 10-25 21:15
PROVIDERS: ADMIT Hospitalist; ATTEND Hospitalist
DX: L03.115 Cellulitis of right lower limb (principal); R50.9 Fever, unspecified; D69.6 Thrombocytopenia, unspecified; Z95.4 Presence of other heart-valve replacement; I25.10 Atherosclerotic heart disease of native coronary artery without angina pectoris; R74.8 Abnormal levels of other serum enzymes; I49.1 Atrial premature depolarization; I45.10 Unspecified right bundle-branch block; M79.661 Pain in right lower leg; E78.5 Hyperlipidemia, unspecified; I95.9 Hypotension, unspecified; N40.0 Benign prostatic hyperplasia without lower urinary tract symptoms; R53.83 Other fatigue; Z95.5 Presence of coronary angioplasty implant and graft
CPT/HCPCS: 36415; 71010; 80048; 80053; 81003; 81015; 83605; 83690; 83880; 84443; 84484; 85025; 85610; 85730; 86140; 87040; 87086; 93005; 96365; 96372; 99284; A9270-GY; G0378; J0696; J1644

== ENCOUNTER 2017-03-03 10:47 | Day surgery (SDC) | payer MEDICARE, OTHER ==
[~2017-03-03 10:47] MED LIST: Acetaminophen TAB* 325 MG PO PRN; Buffered Lidocaine 0.9% SYRIN* 5 ML/SYR SYRINGE INTRADERM ONE
[2017-03-03] MEDS ORDERED: Midazolam* 1 MG/ML 2 ML VIAL (2 MG) ONE (14:08)
[2017-03-03 14:33] VITALS: BP 151/64
[2017-03-03] MEDS ORDERED: acetaZOLAMIDE TAB* 250 MG ONE (15:05)
[2017-03-03] MEDS ORDERED: Proparacaine 0.5% OPHTH.SOL* 15 ML BTL ONE (15:06)
[2017-03-03] MEDS ORDERED: Ketorolac 0.5% OPHTH (NF) 0.5 % 5 ML BTL ONE (15:06)
[2017-03-03] MEDS ORDERED: Povidone Iodine 5% OPTH* 30 ML BTL ONE (15:06)
[2017-03-03] MEDS ORDERED: Neomycin/Polymy/Dex OPTH.SUSP* MAXITROL 0.1% 5 ML ONE (15:06)
[2017-03-03] MEDS ORDERED: Buffered Lidocaine 0.9% SYRIN* 5 ML/SYR SYRINGE ONE (15:06)
[2017-03-03] MEDS ORDERED: Phenylephrine 2.5% OPTH.SOL* 2 ML BTL ONE (15:06)
[2017-03-03] MEDS ORDERED: Cyclopentolate 1% OPTH.SOL* 2 ML BTL ONE (15:06)
[2017-03-03] MEDS ORDERED: Lidocaine 2% EPI 1:200000 MPF* 20 ML VIAL ONE (15:06)
--- NOTE | 2017-03-03 16:50 | OP ---
DATE OF OPERATION: 03/03/2017 - [facility] DATE OF : 1930. SURGEON: [place] M.D. PREOPERATIVE DIAGNOSIS: Cataract right eye. POSTOPERATIVE DIAGNOSIS: Cataract right eye. OPERATIVE PROCEDURE: Phacoemulsification right eye with IOL. DESCRIPTION OF PROCEDURE: The patient was brought to the operating room after being given 1/2% Alcaine with epinephrine drops in the preoperative area. The eye was prepped and draped in the usual sterile fashion. Sterile drape and eyelid speculum were placed. Again, topical 1/2% Alcaine with epinephrine was given. A paracentesis incision was made at the 9 o'clock position with the No.75 blade. Clear cornea incision 2.2 x 2.2-mm was created at the 12 o'clock position starting at the anterior limbus using the 2.2-mm keratome. The anterior chamber was irrigated with 0.4 mL of 1% non-preservative intracameral lidocaine and filled with DisCoVisc. A capsulorrhexis was completed using the cystotome and the Utrata forceps. Hydrodissection was performed with balanced salt solution. The lens nucleus was removed with the Phacoemulsification handpiece without incident. Cortex was removed with the irrigation-aspiration handpiece. The capsular bag was re-inflated using DisCoVisc and an [id number] 15.5 implant was inserted with the shooter. The irrigation-aspiration handpiece was used to remove all residual DisCoVisc. The eye was refilled with balanced salt solution and the wound checked and found to be watertight. Topical Maxitrol drops were given. [id number]/[facility] #: [id number] [facility]
== END 2017-03-03 14:48 | disposition home or self-care (01) ==
LOC: OREAST 10:47
PROVIDERS: ATTEND Specialist
DX: H25.811 Combined forms of age-related cataract, right eye (principal); H35.371 Puckering of macula, right eye; H33.8 Other retinal detachments; I25.10 Atherosclerotic heart disease of native coronary artery without angina pectoris; Z95.5 Presence of coronary angioplasty implant and graft; Z95.2 Presence of prosthetic heart valve; D69.6 Thrombocytopenia, unspecified; E78.5 Hyperlipidemia, unspecified; E03.9 Hypothyroidism, unspecified; R03.0 Elevated blood-pressure reading, without diagnosis of hypertension
CPT/HCPCS: A9270-GY; J2250; V2632

== ENCOUNTER 2018-10-28 12:08 | Emergency (ER) | payer MEDICARE, OTHER ==
--- OUTSIDE RECORDS SUMMARY | 2018-10-28 12:15 | XMS REPORT | Continuity of Care Document ---
:1930 External Reference #:[id number] Author Name Samantha Wilde Care Team Providers Name Role Phone Quin Layton III, MD Primary Care Physician Unavailable Payers Date Identification Numbers Payment Provider Subscriber Policy Number: [id number] Medicare Quin Proctor PayID: [id number] [address] [place] [address] Effective: 2005 Policy Number: [id number] Medicare Quin Proctor Expires: 2018 PayID: [id number] [address] [place] [address] Policy Number: [id number] [employer] Quin Proctor Group Number: [id number] [address] PayID: [id number] [place] [address] Problems Active Problems Provider Date 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 Onset: 06/15/2013 Coronary arteriosclerosis Ian Acevedo M.D. Onset: 08/27/2011 Note: h/o 1 stent Pure hypercholesterolemia Ian Acevedo M.D. Onset: 08/27/2011 Aortic valve disorder Ian Acevedo M.D. Onset: 08/27/2011 Edema Ian Acevedo M.D. Onset: 08/27/2011 Dizziness and giddiness Ian Acevedo M.D. Onset: 06/15/2013 Benign prostatic hypertrophy without Andi HAO Awad Onset: 11/03/2016 outflow obstruction History of porcine aortic valve Andi HAO Awad Onset: 11/03/2016 replacement Hypothyroidism Andiranjith Awad NP Onset: 11/03/2016 Thrombocytopenic disorder Andi Awad NP Onset: 11/03/2016 Essential hypertension Quin Layton M.D. Onset: 08/23/2018 Achilles bursitis Ruth Davila M.D. Onset: 07/20/2018 Localized, primary osteoarthritis of the Ruth Davila M.D. Onset: 07/20/2018 pelvic region and thigh Inactive Problems Conduction disorder of the heart Ian Acevedo M.D. 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 Occupation Retired Tobacco Use Start: Unknown Never Smoked Cigarettes ETOH Use consumes 1-2 glasses of wine per week Tobacco Use Start: Unknown Patient has never smoked Recreational Drug Use Never Used Drugs Tobacco Use Start: Unknown Smoking Status Reviewed: 10/11/18 Exercise Type/Frequency Exercises regularly Allergies, Adverse Reactions, Alerts Active Allergies Reaction Severity Comments Date Amlodipine dizzy per patient 01/04/2014 Penicillins rash 12/15/2016 Medications Active Medications SIG Qnty Indications Ordering Provider Date Lisinopril Take One Tablet 90tabs Jennifer Mello MD 03/17/2018 10mg Tablets By Mouth Every Day Eplerenone take one tablet 90tabs I10 Ian Ontiveros 01/09/2016 25mg Tablets by mouth every Martín Acevedo day [employer]st Anti-Embolism 1 pair daily 2Pair Ian Ontiveros 08/27/2011 Knee Length/Medium Martín Acevedo Regular Misc Lipitor 1 tab by mouth 90tabs Ian Ontiveros 07/11/2007 40mg Tablets daily Martín Acevedo Fish Oil 1 cap po daily Unknown 1000mg Capsules Am Finasteride 1 by mouth Unknown 5mg Tablets every day Levothyroxine Sodium Take One Tablet 60tabs Quin Layton, 50mcg By Mouth Every M.DJeanne Tablets Day Aspirin 81 1 by mouth Unknown 81mg Tablets every day History Medications Meloxicam take one tab twice 30tabs M25.521 Quin Membreno 06/06/2018 - 7.5mg daily as needed Martín Layton 08/23/2018 Tablets for pain, avoid other nsaids Lisinopril 1 by mouth every 90tabs Pop Baugh 08/17/2017 - 5mg day Martín Santos,[facility] 03/17/2018 Tablets Cheratussin ac 10 milliliters by 473ml Pop Baugh 05/19/2017 - mouth four times a Martín [facility] 08/17/2017 100-10mg/5ML Syrup day as needed Tamiflu 1 by mouth twice a 10caps Pop Baugh 05/19/2017 - 75mg Capsules day x 5 days Martín Santos,[facility] 05/24/2017 Aspirin Ec 1 by mouth every Ian Ontiveros 01/05/2014 - 81mg day Martín Acevedo 10/11/2018 Tablets Amlodipine Besylate 1 by mouth every 30tabs Ian Ontiveros 11/30/2013 - day Martín Acevedo 01/03/2014 2.5mg Tablets Aspirin 1 tablet po qd Unknown 07/21/2013 - 325mg Tablets 01/05/2014 Clopidogrel 1 by mouth every 30tabs Ian Ontiveros 07/21/2013 - Bisulfate day Martín Acevedo 07/23/2015 75mg Tablets Nitroglycerin apply to chest 30units Ian Ontiveros 06/15/2013 - Transdermal wall , on qam off Martín Acevedo 12/22/2013 0.1mg/HR qpm. Patches 24HR Toprol XL 1/2 tab by mouth 30tabs Ian Ontiveros 05/15/2013 - 25mg every other day Martín Acevedo 07/30/2015 Tablets ER 24HR Toprol XL 1/2 po qd Ian Ontiveros 12/07/2012 - 25mg Martín Acevedo 05/15/2013 Tablets ER 24HR Potassium Chloride 1 po qd 30tabs Ian Ontiveros 02/17/2011 - ER Martín Acevedo 04/03/2011 20Meq Tablets ER Aspirin 1 po qd Ian FJeanne 10/03/2008 - 81mg Tablets Martín Acevedo 04/22/2009 Aspirin 1 po q 36 hr Ian Ontiveros 10/03/2008 - 325mg Tablets Martín Acevedo 10/03/2008 Fish Oil 2 po q Ian FJeanne 10/03/2008 - 1000mg Martín Acevedo 03/18/2016 Capsules Fish Oil 3 PO qd 90caps Ian Ontiveros 10/05/2007 - 1000mg Martín Acevedo 10/03/2008 Capsules Proscar 1 PO qd 30tabs Ian Ontiveros 10/05/2007 - 5mg Tablets Martín Acevedo 12/15/2016 Lovaza 1 PO bid 120caps Ian Ontiveros 09/14/2007 - 1gm Capsules Martín Acevedo 10/05/2007 Lipitor one alt with 2 135tabs Ian Ontiveros 02/02/2007 - 20mg Tablets tabs qod Martín Acevedo 07/11/2007 #[id number] Lipitor 1 PO qd Ian FJeanne 12/30/2006 - 40mg Tablets Martín Acevedo 02/02/2007 Lipitor 1 po qd 90tabs Ian Ontiveros 06/07/2006 - 20mg Tablets Martín Acevedo 12/30/2006 Toprol XL 1 po qd 90tabs Ian Ontiveros 02/05/2003 - 25mg Martín Acevedo 12/07/2012 Tablets ER 24HR Niaspan 1po qpm 90caps 414.01 Ian Ontiveros 12/27/2002 - 500mg Martín Acevedo 02/21/2003 Capsules Toprol XL 1 po qd Ian FJeanne 12/27/2002 - 25mg Martín Acevedo 02/05/2003 Tablets Toprol XL 1 po qd 90tabs Ian Ontiveros 12/26/2002 - 50mg Martín Acevedo 12/27/2002 Tablets Aspirin Enteric 1 po qd Ian Ontiveros 12/26/2002 - Coated Martín Acevedo 10/03/2008 325mg Tablets Lipitor one qd 30tabs Ian Ontiveros 10/10/2002 - 10mg Tablets Martín Acevedo 06/07/2006 Multi-Vitamin/Minera 1 po ocassional 100tabs Unknown - ls 05/18/2016 Tablets Lycopene Unknown - 10mg 08/27/2011 Capsules Multivitamin Adult 1 by mouth every Unknown - day 07/28/2017 Tablets Cefpodoxime Proxetil 2 by mouth twice a Unknown - day 12/15/2016 200mg Tablets Keflex take 1 tab by Unknown - 500mg Capsules mouth twice daily 06/06/2018 Immunizations CPT Code Status Date Vaccine Lot # [id number] Given 02/27/2017 Influenza Virus Vaccine, Quadrivalent, Split, Preservative Free [id number] Given 12/15/2016 Pneumococcal Conjugate Vaccine 13 Valent For [id number] Intramuscular Use 31303 Given 03/31/2010 Tdap - Tetanus/Diptheria/Acellular Pertussis [id number] Given 10/18/2003 Pneumonia Vaccine Vital Signs Date Vital Result Comment 10/11/2018 1:32pm Height 72.25 inches 6'0.25" Weight 211.12 lb with shoes Heart Rate 58 /min regular, radial BP Systolic Sitting 128 mmHg LA, reg cuff BP Diastolic Sitting 60 mmHg LA, reg cuff BP Systolic Standing 130 mmHg LA, reg cuff BP Diastolic Standing 62 mmHg LA, reg cuff BP Systolic Lying Down 121 mmHg la repeat sit BP Diastolic Lying Down 66 mmHg la repeat sit BMI (Body Mass Index) 28.4 kg/m2 Ejection Fraction 63.8% echo 12/27/17 09/01/2018 2:09pm Height 72.25 inches 6'0.25" Weight 210.38 lb CLothes/shoes Heart Rate 58 /min Radial BP Systolic Sitting 136 mmHg Lue reg cuff BP Diastolic Sitting 60 mmHg Lue reg cuff BP Systolic Standing 132 mmHg Lue reg cuff BP Diastolic Standing 60 mmHg Lue reg cuff BMI (Body Mass Index) 28.3 kg/m2 Ejection Fraction 63.8% Echo 12/27/2017 08/23/2018 1:20pm Height 72.25 inches 6'0.25" Weight 212.12 lb Heart Rate 63 /min BP Systolic 126 mmHg BP Diastolic 59 mmHg Body Temperature 97.8 F O2 % BldC Oximetry 97 % BMI (Body Mass Index) 28.6 kg/m2 08/19/2018 11:58am Height 72.25 inches 6'0.25" Weight 217.00 lb Heart Rate 68 /min BP Systolic 122 mmHg BP Diastolic 60 mmHg Pain Level 0 BMI (Body Mass Index) 29.2 kg/m2 07/20/2018 11:41am Height 72.25 inches 6'0.25" Weight 217.00 lb Heart Rate 84 /min BP Systolic 150 mmHg BP Diastolic 72 mmHg Pain Level 7 BMI (Body Mass Index) 29.2 kg/m2 06/06/2018 10:10am Height 71.5 inches 5'11.50" Weight 211.00 lb Heart Rate 76 /min BP Systolic Sitting 133 mmHg BP Diastolic Sitting 66 mmHg Pain Level 8 O2 % BldC Oximetry 94 % BMI (Body Mass Index) 29.0 kg/m2 04/18/2018 2:51pm Height 71.5 inches 5'11.50" Weight 212.00 lb Heart Rate 62 /min BP Systolic Sitting 144 mmHg BP Diastolic Sitting 64 mmHg Respiratory Rate 16 /min Body Temperature 97.8 F BMI (Body Mass Index) 29.2 kg/m2 03/21/2018 12:45pm Height 71.5 inches 5'11.50" Weight 213.25 lb with shoes Heart Rate 60 /min BP Systolic 140 mmHg Lue BP Diastolic 68 mmHg Lue BP Systolic Sitting 126 mmHg la repeat sitting BP Diastolic Sitting 58 mmHg la repeat sitting BMI (Body Mass Index) 29.3 kg/m2 Ejection Fraction 60-65% echocardiogram 03/16/2018 12:57pm BP Systolic Sitting 142 mmHg BP Diastolic Sitting 58 mmHg 11/23/2017 2:18pm Weight 208.00 lb Heart Rate 57 /min BP Systolic Sitting 176 mmHg BP Diastolic Sitting 84 mmHg BP Systolic Recheck 168 mmHg BP Diastolic Recheck 65 mmHg O2 % BldC Oximetry 97 % 08/17/2017 2:58pm Height 71.5 inches 5'11.50" Weight 204.00 lb Heart Rate 59 /min BP Systolic Sitting 142 mmHg BP Diastolic Sitting 58 mmHg BP Systolic Recheck 160 mmHg BP Diastolic Recheck 85 mmHg Body Temperature 98.1 F O2 % BldC Oximetry 96 % BMI (Body Mass Index) 28.1 kg/m2 08/05/2017 9:56am Height 74 inches 6'2" Weight 204.00 lb w/ shoes Heart Rate 64 /min BP Systolic Sitting 152 mmHg lue reg cuff BP Diastolic Sitting 74 mmHg lue reg cuff Respiratory Rate 18 /min BMI (Body Mass Index) 26.2 kg/m2 Ejection Fraction 60-65% echo 02/11/17 05/19/2017 1:22pm Weight 215.00 lb w/coat and shoes Heart Rate 89 /min BP Systolic Sitting 162 mmHg BP Diastolic Sitting 80 mmHg Body Temperature 99.3 F O2 % BldC Oximetry 98 % 02/16/2017 2:02pm Weight 218.00 lb Heart Rate 64 /min BP Systolic Sitting 160 mmHg BP Diastolic Sitting 74 mmHg Body Temperature 96.8 F O2 % BldC Oximetry 97 % 01/19/2017 11:09am Height 74 inches 6'2" Weight 213.50 lb with shoes Heart Rate 66 /min BP Systolic Sitting 140 mmHg LA reg cuff BP Diastolic Sitting 82 mmHg LA reg cuff BP Systolic Standing 134 mmHg la repeat sitting BP Diastolic Standing 67 mmHg la repeat sitting BMI (Body Mass Index) 27.4 kg/m2 Ejection Fraction 60% stress echo 11/01/14 12/15/2016 9:39am Weight 215.75 lb Heart Rate 63 /min BP Systolic Sitting 130 mmHg BP Diastolic Sitting 70 mmHg Body Temperature 97.1 F O2 % BldC Oximetry 98 % 11/03/2016 10:20am Weight 217.75 lb Heart Rate 67 /min BP Systolic 142 mmHg BP Diastolic 78 mmHg Body Temperature 96.9 F O2 % BldC Oximetry 97 % 10/01/2016 11:42am Height 74 inches 6'2" Weight 210.00 lb BP Systolic 132 mmHg BP Diastolic 71 mmHg Body Temperature 97.6 F Pain Level 0 BMI (Body Mass Index) 27.0 kg/m2 08/25/2016 10:59am Height 74 inches 6'2" Weight 210.00 lb Heart Rate 60 /min BP Systolic 130 mmHg BP Diastolic 80 mmHg Body Temperature 94.3 F Pain Level 4 BMI (Body Mass Index) 27.0 kg/m2 08/04/2016 11:09am Height 74 inches 6'2" Weight 210.00 lb Heart Rate 72 /min BP Systolic 124 mmHg BP Diastolic 90 mmHg Respiratory Rate 18 /min Pain Level 2 BMI (Body Mass Index) 27.0 kg/m2 07/21/2016 10:50am Height 74 inches 6'2" Weight 210.00 lb Heart Rate 82 /min BP Systolic 150 mmHg BP Diastolic 90 mmHg Respiratory Rate 16 /min Body Temperature 96.1 F Pain Level 4 BMI (Body Mass Index) 27.0 kg/m2 05/19/2016 1:04pm Height 74 inches 6'2" Weight 220.25 lb with shoes Heart Rate 78 /min BP Systolic Sitting 134 mmHg LA lrg cuff BP Diastolic Sitting 78 mmHg LA lrg cuff BMI (Body Mass Index) 28.3 kg/m2 Ejection Fraction 60% stress echo 11/01/14 03/19/2016 2:31pm Height 74 inches 6'2" Weight 216.00 lb without shoes Heart Rate 56 /min BP Systolic Sitting 140 mmHg Lue reg cuff BP Diastolic Sitting 60 mmHg Lue reg cuff BP Systolic Standing 140 mmHg Lue reg cuff BP Diastolic Standing 66 mmHg Lue reg cuff Respiratory Rate 16 /min BMI (Body Mass Index) 27.7 kg/m2 Ejection Fraction 65-70% date 05/04/2014 ECHO 01/09/2016 10:51am Height 74 inches 6'2" Weight 212.75 lb w/shoes Heart Rate 56 /min BP Systolic Sitting 148 mmHg LA, reg BP Diastolic Sitting 74 mmHg LA, reg BMI (Body Mass Index) 27.3 kg/m2 Ejection Fraction 60% Stress Echo 11/01/14 07/31/2015 10:55am Height 74 inches 6'2" Weight 218.25 lb with shoes Heart Rate 66 /min BP Systolic 122 mmHg LA reg cuff BP Diastolic 70 mmHg LA reg cuff BMI (Body Mass Index) 28.0 kg/m2 Ejection Fraction 65% - 70% 05/04/14 Echo 07/24/2015 10:05am Height 74 inches 6'2" Weight 218.25 lb without shoes Heart Rate 72 /min BP Systolic 142 mmHg LA lrg cuff BP Diastolic 78 mmHg LA lrg cuff BMI (Body Mass Index) 28.0 kg/m2 Ejection Fraction 65% - 70% Echocardiogram 04/24/14 02/21/2015 2:52pm Height 74 inches 6'2" Weight 213.50 lb w/o shoes Heart Rate 58 /min BP Systolic Sitting 164 mmHg LA reg cuff BP Diastolic Sitting 86 mmHg LA reg cuff BP Systolic Standing 146 mmHg repeat la sitting BP Diastolic Standing 72 mmHg repeat la sitting BMI (Body Mass Index) 27.4 kg/m2 Ejection Fraction 60 stress echo 11/01/14 07/25/2014 3:23pm Height 74 inches 6'2" Weight 216.50 lb w/ shoes Heart Rate 60 /min regular BP Systolic Sitting 148 mmHg LA, reg cuff BP Diastolic Sitting 82 mmHg LA, reg cuff BMI (Body Mass Index) 27.8 kg/m2 02/15/2014 11:23am Height 74 inches 6'2" Weight 219.25 lb Heart Rate 60 /min BP Systolic Sitting 160 mmHg LA reg cuff BP Diastolic Sitting 82 mmHg LA reg cuff Respiratory Rate 16 /min BMI (Body Mass Index) 28.1 kg/m2 01/04/2014 3:16pm Height 74 inches 6'2" Weight 215.00 lb without shoes Heart Rate 56 /min BP Systolic Sitting 120 mmHg La reg cuff BP Diastolic Sitting 76 mmHg La reg cuff BP Systolic Standing 134 mmHg La reg cuff BP Diastolic Standing 80 mmHg La reg cuff Respiratory Rate 16 /min BMI (Body Mass Index) 27.6 kg/m2 09/12/2013 10:40am Height 74 inches 6'2" Weight 215.75 lb without shoes Heart Rate 66 /min BP Systolic Sitting 120 mmHg LA reg cuff BP Diastolic Sitting 62 mmHg LA reg cuff BP Systolic Standing 126 mmHg LA reg cuff BP Diastolic Standing 74 mmHg LA reg cuff Respiratory Rate 15 /min BMI (Body Mass Index) 27.7 kg/m2 05/15/2013 3:36pm Height 74 inches 6'2" Weight 216.00 lb Heart Rate 56 /min BP Systolic Sitting 132 mmHg BP Diastolic Sitting 64 mmHg BMI (Body Mass Index) 27.7 kg/m2 09/15/2012 4:08pm Height 74 inches 6'2" Weight 217.00 lb Heart Rate 57 /min BP Systolic 140 mmHg BP Diastolic 70 mmHg Respiratory Rate 16 /min BMI (Body Mass Index) 27.9 kg/m2 02/18/2012 1:40pm Height 74 inches 6'2" Weight 219.00 lb Heart Rate 55 /min BP Systolic 120 mmHg BP Diastolic 72 mmHg Respiratory Rate 16 /min BMI (Body Mass Index) 28.1 kg/m2 08/27/2011 2:49pm Height 74 inches 6'2" Weight 221.00 lb Heart Rate 63 /min BP Systolic 126 mmHg BP Diastolic 68 mmHg BMI (Body Mass Index) 28.4 kg/m2 02/11/2011 8:31am Height 74 inches 6'2" Weight 220.00 lb Heart Rate 68 /min BP Systolic Sitting 98 mmHg BP Diastolic Sitting 62 mmHg BMI (Body Mass Index) 28.2 kg/m2 02/20/2010 2:02pm Height 74 inches 6'2" Weight 223.00 lb Heart Rate 56 /min BP Systolic Sitting 120 mmHg L BP Diastolic Sitting 74 mmHg L BMI (Body Mass Index) 28.6 kg/m2 08/01/2009 10:05am Weight 219.00 lb Heart Rate 78 /min BP Systolic Sitting 124 mmHg BP Diastolic Sitting 80 mmHg 04/22/2009 1:25pm Height 74 inches 6'2" Weight 225.00 lb Heart Rate 57 /min BP Systolic Sitting 140 mmHg BP Diastolic Sitting 90 mmHg BMI (Body Mass Index) 28.9 kg/m2 10/03/2008 11:13am Height 74 inches 6'2" Weight 217.00 lb Heart Rate 56 /min BP Systolic Sitting 130 mmHg L BP Diastolic Sitting 70 mmHg L BMI (Body Mass Index) 27.9 kg/m2 03/05/2008 1:48pm Height 74 inches 6'2" Weight 219.00 lb Heart Rate 59 /min BP Systolic Sitting 130 mmHg L BP Diastolic Sitting 70 mmHg L BMI (Body Mass Index) 28.1 kg/m2 10/05/2007 1:36pm Height 74 inches 6'2" Weight 216.00 lb Heart Rate 60 /min BP Systolic Sitting 120 mmHg BP Diastolic Sitting 72 mmHg BMI (Body Mass Index) 27.7 kg/m2 06/20/2007 8:27am Height 74 inches 6'2" Weight 221.00 lb Heart Rate 55 /min BP Systolic Sitting 140 mmHg L BP Diastolic Sitting 80 mmHg L BMI (Body Mass Index) 28.4 kg/m2 02/02/2007 1:56pm Height 74 inches 6'2" Weight 222.00 lb Heart Rate 53 /min BP Systolic Sitting 130 mmHg L BP Diastolic Sitting 82 mmHg L BP Systolic Standing 130 mmHg L BP Diastolic Standing 84 mmHg L BMI (Body Mass Index) 28.5 kg/m2 06/14/2006 1:56pm Height 74 inches 6'2" Weight 224.00 lb Heart Rate 61 /min BP Systolic Sitting 120 mmHg BP Diastolic Sitting 80 mmHg BP Systolic Standing 110 mmHg BP Diastolic Standing 80 mmHg O2 % BldC Oximetry 98 % BMI (Body Mass Index) 28.8 kg/m2 12/15/2005 3:03pm Height 74 inches 6'2" Weight 218.00 lb Heart Rate 54 /min BP Systolic Sitting 132 mmHg BP Diastolic Sitting 70 mmHg BP Systolic Standing 130 mmHg BP Diastolic Standing 74 mmHg BMI (Body Mass Index) 28.0 kg/m2 06/15/2005 1:51pm Height 74 inches 6'2" Weight 224.00 lb Heart Rate 64 /min BP Systolic Sitting 130 mmHg BP Diastolic Sitting 80 mmHg BP Systolic Standing 130 mmHg BP Diastolic Standing 80 mmHg BMI (Body Mass Index) 28.8 kg/m2 11/27/2004 11:11am Height 74 inches 6'2" Weight 215.00 lb Heart Rate 59 /min BP Systolic Sitting 104 mmHg BP Diastolic Sitting 70 mmHg BP Systolic Standing 110 mmHg BP Diastolic Standing 80 mmHg BMI (Body Mass Index) 27.6 kg/m2 05/08/2004 8:53am Height 74 inches 6'2" Weight 222.00 lb Heart Rate 62 /min BP Systolic Sitting 110 mmHg BP Diastolic Sitting 68 mmHg BP Systolic Standing 108 mmHg BP Diastolic Standing 74 mmHg BMI (Body Mass Index) 28.5 kg/m2 06/13/2003 1:37pm Height 74 inches Weight 216.00 lb Heart Rate 60 /min BP Systolic Sitting 140 mmHg BP Diastolic Sitting 80 mmHg BP Systolic Standing 144 mmHg BP Diastolic Standing 94 mmHg BMI (Body Mass Index) 27.7 kg/m2 02/21/2003 11:10am Height 74 inches Weight 213.00 lb Heart Rate 72 /min BP Systolic Sitting 118 mmHg BP Diastolic Sitting 72 mmHg BP Systolic Standing 124 mmHg BP Diastolic Standing 78 mmHg BMI (Body Mass Index) 27.3 kg/m2 12/27/2002 10:41am Height 74 inches Weight 205.00 lb Heart Rate 64 /min BP Systolic Sitting 120 mmHg BP Diastolic Sitting 68 mmHg BP Systolic Standing 134 mmHg BP Diastolic Standing 74 mmHg BMI (Body Mass Index) 26.3 kg/m2 10/11/2002 2:43pm Weight 218.00 lb Heart Rate 74 /min BP Systolic Sitting 108 mmHg BP Diastolic Sitting 80 mmHg BP Systolic Standing 110 mmHg Results Test Date Facility Test Result H/L Range Note Lipid Panel - 10/07/2018 [facility] Creatine 74 U/L N 10-[address] Kinase(CK) [place] [address] [phone] Comp Metabolic 10/07/2018 [facility] Sodium 139 mmol/L N 135- [address] [place] [address] [phone] Potassium 4.4 mmol/L N 3.5-5.0 Chloride 109 mmol/L N 101-111 Co2 Carbon Dioxide 26 mmol/L N 22-32 Anion Gap 4 mmol/L N 2-11 Glucose 102 mg/dL High 70-100 Blood Urea Nitrogen 26 mg/dL High 6-24 Creatinine 1.31 mg/dL High 0.67-1.17 BUN/Creatinine Ratio 19.8 N 8-20 Calcium 9.1 mg/dL N 8.6-10.3 Total Protein 6.9 g/dL N 6.4-8.9 Albumin 3.8 g/dL N 3.2-5.2 Globulin 3.1 g/dL N 2-4 Albumin/Globulin Ratio 1.2 N 1-3 Total Bilirubin 0.40 mg/dL N 0.2-1.0 Alkaline Phosphatase 56 U/L N 34-104 Alt 25 U/L N 7-52 Ast 22 U/L N 13-39 Egfr Non- 52.0 >60 Egfr 62.9 >60 1 Lipid Profile 10/07/2018 [facility] Triglycerides 175 mg/dL 2 (Trig/Chol/HDL) [address] [place] [address] [phone] Cholesterol 130 mg/dL 3 HDL Cholesterol 31.2 mg/dL 4 LDL Cholesterol 64 mg/dL 5 Laboratory test 10/07/2018 [facility] TSH (Thyroid 4.89 mcIU/mL N 0.34-5.[address] Stim Horm) [place] [address] [phone] CBC Auto Diff 10/07/2018 [facility] White Blood 5.5 10^3/uL N 3.5-10.[address] [place] [address] [phone] Red Blood Count 4.02 10^6/uL Low 4.18-5.48 Hemoglobin 12.9 g/dL Low 14.0-18.0 Hematocrit 37 % Low 42-52 Mean Corpuscular Volume 91 fL N 80-94 Mean Corpuscular Hemoglobin 32 pg High 27-31 Mean Corpuscular HGB Conc 35 g/dL N 31-36 Red Cell Distribution Width 14 % N 10-15 Platelet Count 72 10^3/uL Low 150-450 6 Mean Platelet Volume 8.7 fL N 7.4-10.4 Abs Neutrophils 2.9 10^3/uL N 1.5-7.7 Abs Lymphocytes 1.6 10^3/uL N 1.0-4.8 Abs Monocytes 0.8 10^3/uL N 0-0.8 Abs Eosinophils 0.2 10^3/uL N 0-0.6 Abs Basophils 0.0 10^3/uL N 0-0.2 Abs Nucleated RBC 0.0 10^3/uL Granulocyte % 53.0 % Lymphocyte % 29.1 % Monocyte % 13.7 % Eosinophil % 3.8 % Basophil % 0.4 % Nucleated Red Blood Cells % 0.1 Basic Metabolic Panel 08/01/2018 [facility] Sodium 138 mmol/L N 135-[address] [place] [address] [phone] Potassium 4.3 mmol/L N 3.5-5.0 Chloride 107 mmol/L N 101-111 Co2 Carbon Dioxide 26 mmol/L N 22-32 Anion Gap 5 mmol/L N 2-11 Glucose 108 mg/dL High 70-100 Blood Urea Nitrogen 28 mg/dL High 6-24 Creatinine 1.28 mg/dL High 0.67-1.17 BUN/Creatinine Ratio 21.9 High 8-20 Calcium 9.3 mg/dL N 8.6-10.3 Egfr Non- 53.4 >60 Egfr 64.6 >60 7 CBC Auto Diff 08/01/2018 [facility] White Blood 5.6 10^3/uL N 3.5-10.[address] [place] [place] [address] [phone] Red Blood Count 4.26 10^6/uL N 4.18-5.48 Hemoglobin 13.2 g/dL Low 14.0-18.0 Hematocrit 39 % N 36-46 Mean Corpuscular Volume 91 fL N 80-94 Mean Corpuscular Hemoglobin 31 pg N 27-31 Mean Corpuscular HGB Conc 34 g/dL N 31-36 Red Cell Distribution Width 14 % N 10.5-15 Platelet Count 90 10^3/uL Low 150-450 8 Mean Platelet Volume 8.4 fL N 7.4-10.4 Abs Neutrophils 3.5 10^3/uL N 1.5-7.7 Abs Lymphocytes 1.2 10^3/uL N 1.0-4.8 Abs Monocytes 0.7 10^3/uL N 0-0.8 Abs Eosinophils 0.2 10^3/uL N 0-0.6 Abs Basophils 0 10^3/uL N 0-0.2 Abs Nucleated RBC 0 10^3/uL Granulocyte % 62.7 % Lymphocyte % 21.9 % Monocyte % 12.4 % Eosinophil % 2.7 % Basophil % 0.3 % Nucleated Red Blood Cells % 0 Heron/Lambda Free 08/01/2018 [facility] Heron Free 2.43 mg/dL Abnormal 9 Light Chains Ser [address] [place] [address] [phone] Lambda Free Light Chain 1.88 mg/dL 10 Heron/Lambda Free Light Chain 1.29 11 Protein 08/01/2018 [facility] Total 7.6 g/dL 6.3 - Electrophoresis [address] Protein(Pep) 7.9 [place] [address] [phone] Albumin 3.6 g/dL 3.4-4.7 Alpha-1 Globulin 0.2 g/dL 0.1-0.3 Alpha-2 Globulin 1.0 g/dL 0.6-1.0 Beta Globulin 1.0 g/dL 0.7-1.2 Gamma Globulin 1.8 g/dL Abnormal 0.6-1.6 Albumin/Globulin Ratio 0.92 M Rogelio 1.6 g/dL Impression See Comment 12 Laboratory test 04/29/2018 [facility] Fungus SEE RESULT 13 , [address] [place] [address] [phone] Laboratory test 04/29/2018 [facility] Fungus SEE RESULT [address] [place] [address] [phone] Laboratory test 04/29/2018 [facility] Fungus SEE RESULT [address] [employer] [place] [id number] [phone] Laboratory test 04/29/2018 [facility] Fungus SEE RESULT [address] [place] [address] [phone] Laboratory test 04/29/2018 [facility] Fungus SEE RESULT 18 , [address] [employer] [place], [place] [id number] [phone] Laboratory test 04/29/2018 [facility] Fungus SEE RESULT [address] [place] [address] [phone] Laboratory test 04/29/2018 [facility] Fungus SEE RESULT [address] [employer] [place], [place] [id number] [phone] Laboratory test 04/29/2018 [facility] Fungus SEE RESULT [address] [employer] [place], [place] [id number] [phone] Laboratory test 03/29/2018 [facility] C Reactive < 1.00 mg/L N <8.[address] Protein [place], [place] [id number] [phone] Order 03/21/2018 [facility] In-House EKG <pending> Laboratory test 03/04/2018 [facility] Tissue SEE RESULT 23 , [address] Culture & BELOW [place] [address] [employer] [phone] CBC Auto Diff 02/14/2018 [facility] White Blood 5.6 10^3/uL N 3.5-[address] Count 0.8 [place] [address] [phone] Red Blood Count 3.89 10^6/uL Low 4.00-5.40 Hemoglobin 12.0 g/dL Low 14.0-18.0 Hematocrit 36 % Low 42-52 Mean Corpuscular Volume 92 fL N 80-94 Mean Corpuscular Hemoglobin 31 pg N 27-31 Mean Corpuscular HGB Conc 34 g/dL N 31-36 Red Cell Distribution Width 13 % N 10.5-15 Platelet Count 101 10^3/uL Low 150-450 Mean Platelet Volume 7.8 um3 N 7.4-10.4 Abs Neutrophils 3.9 10^3/uL N 1.5-7.7 Abs Lymphocytes 0.9 10^3/uL Low 1.0-4.8 Abs Monocytes 0.6 10^3/uL N 0-0.8 Abs Eosinophils 0.2 10^3/uL N 0-0.6 Abs Basophils 0 10^3/uL N 0-0.2 Abs Nucleated RBC 0 10^3/uL Granulocyte % 69.1 % N 38-83 Lymphocyte % 16.8 % Low 25-47 Monocyte % 10.3 % High 0-7 Eosinophil % 3.7 % N 0-6 Basophil % 0.1 % N 0-2 Nucleated Red Blood Cells % 0.1 Laboratory test 02/14/2018 [facility] Prealbumin 21 mg/dL N 18 -38 finding [address] [place] [address] [phone] C Reactive Protein 5.32 mg/L N <8.01 Ferritin 111.2 ng/mL N 24-336 Zinc Serum 0.74 g/mL 0.66-1.10 25 Comp Metabolic Panel 08/27/2017 [facility] Sodium 141 mmol/L N 139-145 [address] [place] [address] [phone] Potassium 4.3 mmol/L N 3.5-5.0 Chloride 107 mmol/L N 101-111 Co2 Carbon Dioxide 29 mmol/L N 22-32 Anion Gap 5 mmol/L N 2-11 Glucose 110 mg/dL High 70-100 Blood Urea Nitrogen 25 mg/dL High 6-24 Creatinine 1.12 mg/dL N 0.67-1.17 BUN/Creatinine Ratio 22.3 High 8-20 Calcium 9.2 mg/dL N 8.6-10.3 Total Protein 7.1 g/dL N 6.4-8.9 Albumin 4.1 g/dL N 3.2-5.2 Globulin 3.0 g/dL N 2-4 Albumin/Globulin Ratio 1.4 N 1-3 Total Bilirubin 0.50 mg/dL N 0.2-1.0 Alkaline Phosphatase 54 U/L N 34-104 Alt 25 U/L N 7-52 Ast 21 U/L N 13-39 Egfr Non- 62.5 >60 Egfr 80.3 >60 26 Lipid Profile 08/27/2017 [facility] Triglycerides 134 mg/dL 27 (Trig/Chol/HDL) [address] [place] [address] [phone] Cholesterol 130 mg/dL 28 HDL Cholesterol 35.3 mg/dL 29 LDL Cholesterol 68 mg/dL 30 Laboratory test 08/27/2017 [facility] Creatine 64 U/L N 10- [address] Kinase(CK) [place] [address] [phone] Laboratory test 08/27/2017 [facility] TSH (Thyroid 3.46 N 0.34 -5.[address] Stim Horm) mcIU/[place] [address] [phone] Vitamin B12 359 pg/mL N 180-914 31 Basic Metabolic Panel 07/21/2017 [facility] Sodium 140 mmol/L N 139-[address] [place] [address] [phone] Potassium 4.3 mmol/L N 3.5-5.0 Chloride 107 mmol/L N 101-111 Co2 Carbon Dioxide 28 mmol/L N 22-32 Anion Gap 5 mmol/L N 2-11 Glucose 97 mg/dL N 70-100 Blood Urea Nitrogen 20 mg/dL N 6-24 Creatinine 1.02 mg/dL N 0.67-1.17 BUN/Creatinine Ratio 19.6 N 8-20 Calcium 9.4 mg/dL N 8.6-10.3 Egfr Non- 69.6 >60 Egfr 89.5 >60 32 CBC Auto Diff 07/21/2017 [facility] White Blood 5.4 10^3/uL N 3.5-10.[address] [place] [address] [phone] Red Blood Count 4.30 10^6/uL N 4.0-5.4 Hemoglobin 13.4 g/dL Low 14.0-18.0 Hematocrit 39 % Low 42-52 Mean Corpuscular Volume 91 fL N 80-94 Mean Corpuscular Hemoglobin 31 pg N 27-31 Mean Corpuscular HGB Conc 34 g/dL N 31-36 Red Cell Distribution Width 14 % N 10.5-15 Platelet Count 76 10^3/uL Low 150-450 33 Mean Platelet Volume 8.6 um3 N 7.4-10.4 Abs Neutrophils 3.2 10^3/uL N 1.5-7.7 Abs Lymphocytes 1.4 10^3/uL N 1.0-4.8 Abs Monocytes 0.7 10^3/uL N 0-0.8 Abs Eosinophils 0.2 10^3/uL N 0-0.6 Abs Basophils 0 10^3/uL N 0-0.2 Abs Nucleated RBC 0 10^3/uL Granulocyte % 59.1 % N 38-83 Lymphocyte % 25.6 % N 25-47 Monocyte % 12.0 % High 0-7 Eosinophil % 3.0 % N 0-6 Basophil % 0.3 % N 0-2 Nucleated Red Blood Cells % 0 Protein 07/21/2017 [facility] Total 7.4 g/dL 6.3 - Electrophoresis [address] Protein(Pep) 7.9 [place] [address] [phone] Albumin 3.4 g/dL 3.4-4.7 Alpha-1 Globulin 0.3 g/dL 0.1-0.3 Alpha-2 Globulin 0.9 g/dL 0.6-1.0 Beta Globulin 1.1 g/dL 0.7-1.2 Gamma Globulin 1.7 g/dL Abnormal 0.6-1.6 Albumin/Globulin Ratio 0.87 M Rogelio 1.4 g/dL Impression See Comment 34 CBC Auto Diff 02/16/2017 [facility] White Blood 5.4 10^3/uL N 3.5-10.[address] [place] [address] [phone] Red Blood Count 4.40 10^6/uL N 4.0-5.4 Hemoglobin 13.7 g/dL Low 14.0-18.0 Hematocrit 40 % Low 42-52 Mean Corpuscular Volume 91 fL N 80-94 Mean Corpuscular Hemoglobin 31 pg N 27-31 Mean Corpuscular HGB Conc 34 g/dL N 31-36 Red Cell Distribution Width 14 % N 10.5-15 Platelet Count 78 10^3/uL Low 150-450 Mean Platelet Volume 9 um3 N 7.4-10.4 Abs Neutrophils 3.5 10^3/uL N 1.5-7.7 Abs Lymphocytes 1.1 10^3/uL N 1.0-4.8 Abs Monocytes 0.7 10^3/uL N 0-0.8 Abs Eosinophils 0.1 10^3/uL N 0-0.6 Abs Basophils 0 10^3/uL N 0-0.2 Abs Nucleated RBC 0.01 10^3/uL N Granulocyte % 64.2 % N 38-83 Lymphocyte % 19.6 % Low 25-47 Monocyte % 13.4 % High 1-9 Eosinophil % 2.5 % N 0-6 Basophil % 0.3 % N 0-2 Nucleated Red Blood Cells % 0.1 N Laboratory test 02/16/2017 [facility] B-Type 79 pg/mL N [address] [place] [address] Peptide BNP [phone] Basic Metabolic 02/16/2017 [facility] Sodium 138 mmol/L N 133- [address] [place] [address] [phone] Potassium 4.4 mmol/L N 3.5-5.0 Chloride 107 mmol/L N 101-111 Co2 Carbon Dioxide 28 mmol/L N 22-32 Anion Gap 3 mmol/L N 2-11 Glucose 100 mg/dL N 70-100 Blood Urea Nitrogen 17 mg/dL N 6-24 Creatinine 1.13 mg/dL N 0.67-1.17 BUN/Creatinine Ratio 15.0 N 8-20 Calcium 9.0 mg/dL N 8.6-10.3 Egfr Non- 61.8 N >60 Egfr 79.5 N >60 36 Laboratory test 02/16/2017 [facility] Magnesium 2.1 mg/dL N 1.9-2.[address] [place] [address] [phone] Laboratory test 01/22/2017 [facility] TSH (Thyroid 3.71 N 0.34 -5.[address] Stim Horm) mcIU/mL [place], [place] [id number] [phone] CBC Auto Diff 11/02/2016 [facility] White Blood 5.0 N 3.5- 10.[address] Count 10^3/[place] [address] [phone] Red Blood Count 3.96 10^6/uL Low 4.0-5.4 Hemoglobin 12.5 g/dL Low 14.0-18.0 Hematocrit 37 % Low 42-52 Mean Corpuscular Volume 92 fL N 80-94 Mean Corpuscular Hemoglobin 32 pg High 27-31 Mean Corpuscular HGB Conc 34 g/dL N 31-36 Red Cell Distribution Width 13 % N 10.5-15 Platelet Count 79 10^3/uL Low 150-450 37 Mean Platelet Volume 9 um3 N 7.4-10.4 Abs Neutrophils 3.2 10^3/uL N 1.5-7.7 Abs Lymphocytes 1.1 10^3/uL N 1.0-4.8 Abs Monocytes 0.5 10^3/uL N 0-0.8 Abs Eosinophils 0.2 10^3/uL N 0-0.6 Abs Basophils 0 10^3/uL N 0-0.2 Abs Nucleated RBC 0 10^3/uL N Granulocyte % 62.7 % N 38-83 Lymphocyte % 22.2 % Low 25-47 Monocyte % 10.2 % High 1-9 Eosinophil % 4.1 % N 0-6 Basophil % 0.8 % N 0-2 Nucleated Red Blood Cells % 0.1 N Basic Metabolic Panel 11/02/2016 [facility] Sodium 133 mmol/L N 133-[address] [place] [address] [phone] Potassium 3.9 mmol/L N 3.5-5.0 Chloride 103 mmol/L N 101-111 Co2 Carbon Dioxide 26 mmol/L N 22-32 Anion Gap 4 mmol/L N 2-11 Glucose 144 mg/dL High 70-100 Blood Urea Nitrogen 21 mg/dL N 6-24 Creatinine 1.11 mg/dL N 0.67-1.17 BUN/Creatinine Ratio 18.9 N 8-20 Calcium 8.8 mg/dL N 8.6-10.3 Egfr Non- 63.3 N >60 Egfr 81.4 N >60 38 Protein 11/02/2016 [facility] Total 7.2 g/dL N 6.3 - Electrophoresis [address] Protein(Pep) 7.9 [place] [address] [phone] Albumin 3.3 g/dL Abnormal 3.4-4.7 Alpha-1 Globulin 0.3 g/dL N 0.1-0.3 Alpha-2 Globulin 0.9 g/dL N 0.6-1.0 Beta Globulin 1.0 g/dL N 0.7-1.2 Gamma Globulin 1.7 g/dL Abnormal 0.6-1.6 Albumin/Globulin Ratio 0.85 N M Rogelio 1.4 g/dL N Impression See Comment N 39 Lipid Panel - 08/21/2016 [facility] Creatine 70 U/L N 10-[address] Kinase(CK) [place] [address] [phone] Comp Metabolic 08/21/2016 [facility] Sodium 138 N 133-[address] mmol/[place] [address] [phone] Potassium 4.2 mmol/L N 3.5-5.0 Chloride 107 mmol/L N 101-111 Co2 Carbon Dioxide 26 mmol/L N 22-32 Anion Gap 5 mmol/L N 2-11 Glucose 110 mg/dL High 70-100 Blood Urea Nitrogen 19 mg/dL N 6-24 Creatinine 1.27 mg/dL High 0.67-1.17 BUN/Creatinine Ratio 15.0 N 8-20 Calcium 9.0 mg/dL N 8.6-10.3 Total Protein 7.0 g/dL N 6.4-8.9 Albumin 3.9 g/dL N 3.2-5.2 Globulin 3.1 g/dL N 2-4 Albumin/Globulin Ratio 1.3 N 1-3 Total Bilirubin 0.60 mg/dL N 0.2-1.0 Alkaline Phosphatase 56 U/L N 34-104 Alt 23 U/L N 7-52 Ast 19 U/L N 13-39 Egfr Non- 54.2 N >60 Egfr 69.7 N >60 40 Lipid Profile 08/21/2016 [facility] Triglycerides 199 mg/dL N 41 (Trig/Chol/HDL) [address] [place] [address] [phone] Cholesterol 124 mg/dL N 42 HDL Cholesterol 28.4 mg/dL N 43 LDL Cholesterol 56 mg/dL N 44 CBC Auto Diff 08/21/2016 [facility] White Blood 5.6 10^3/uL N 3.5-10.[address] [place] [address] [phone] Red Blood Count 4.34 10^6/uL N 4.0-5.4 Hemoglobin 13.4 g/dL Low 14.0-18.0 Hematocrit 39 % Low 42-52 Mean Corpuscular Volume 90 fL N 80-94 Mean Corpuscular Hemoglobin 31 pg N 27-31 Mean Corpuscular HGB Conc 34 g/dL N 31-36 Red Cell Distribution Width 14 % N 10.5-15 Platelet Count 79 10^3/uL Low 150-450 45 Mean Platelet Volume 9 um3 N 7.4-10.4 Abs Neutrophils 3.3 10^3/uL N 1.5-7.7 Abs Lymphocytes 1.4 10^3/uL N 1.0-4.8 Abs Monocytes 0.7 10^3/uL N 0-0.8 Abs Eosinophils 0.2 10^3/uL N 0-0.6 Abs Basophils 0 10^3/uL N 0-0.2 Abs Nucleated RBC 0 10^3/uL N Granulocyte % 58.7 % N 38-83 Lymphocyte % 25.0 % N 25-47 Monocyte % 12.0 % High 1-9 Eosinophil % 3.9 % N 0-6 Basophil % 0.4 % N 0-2 Nucleated Red Blood Cells % 0.1 N Basic Metabolic Panel 03/19/2016 [facility] Sodium 139 mmol/L N 133-[address] [place] [address] [phone] Potassium 4.1 mmol/L N 3.5-5.0 Chloride 109 mmol/L N 101-111 Co2 Carbon Dioxide 24 mmol/L N 22-32 Anion Gap 6 mmol/L N 2-11 Glucose 106 mg/dL High 70-100 Blood Urea Nitrogen 26 mg/dL High 6-24 Creatinine 1.15 mg/dL N 0.67-1.17 BUN/Creatinine Ratio 22.6 High 8-20 Calcium 9.0 mg/dL N 8.6-10.3 Egfr Non- 60.7 N >60 Egfr 78.1 N >60 46 Laboratory 02/12/2016 [facility] TSH (Thyroid 3.32 N 0.34- 5.60 test finding [address] Stim Horm) mcIU/[place] [address] [phone] Lipid Profile 08/16/2015 [facility] Triglycerides 173 mg/dL N 47, (Trig/Chol/HDL [address] 48 ) [place] [address] [phone] Cholesterol 130 mg/dL N 49 HDL Cholesterol 28.4 mg/dL N 50 LDL Cholesterol 67 mg/dL N 51 Comp Metabolic Panel 08/16/2015 [facility] Sodium 138 mmol/L N 133-[address] [place] [address] [phone] Potassium 4.0 mmol/L N 3.5-5.0 Chloride 107 mmol/L N 101-111 Co2 Carbon Dioxide 27 mmol/L N 22-32 Anion Gap 4 mmol/L N 2-11 Glucose 100 mg/dL N 70-100 Blood Urea Nitrogen 19 mg/dL N 6-24 Creatinine 1.24 mg/dL High 0.67-1.17 BUN/Creatinine Ratio 15.3 N 8-20 Calcium 8.8 mg/dL N 8.6-10.3 Total Protein 7.4 g/dL N 6.4-8.9 Albumin 4.2 g/dL N 3.2-5.2 Globulin 3.2 g/dL N 2-4 Albumin/Globulin Ratio 1.3 N 1-3 Total Bilirubin 0.60 mg/dL N 0.2-1.0 Alkaline Phosphatase 50 U/L N 34-104 Alt 23 U/L N 7-52 Ast 23 U/L N 13-39 Egfr Non- 55.8 N >60 Egfr 71.8 N >60 52 Lipid Panel 08/16/2015 [facility] Creatine 107 U/L N 10-223 53 - JFM [address] Kinase(CK) [place] [address] [phone] CBC Auto 08/16/2015 [facility] White Blood Count 5.9 N 3.5- 10.[address] 10^3/[place] [address] [phone] Red Blood Count 4.49 10^6/uL N 4.0-5.4 Hemoglobin 14.0 g/dL N 14.0-18.0 Hematocrit 42 % N 42-52 Mean Corpuscular Volume 93 fL N 80-94 Mean Corpuscular Hemoglobin 31 pg N 27-31 Mean Corpuscular HGB Conc 34 g/dL N 31-36 Red Cell Distribution Width 13 % N 10.5-15 Platelet Count 74 10^3/uL Low 150-450 54 Mean Platelet Volume 9 um3 N 7.4-10.4 Abs Neutrophils 3.6 10^3/uL N 1.5-7.7 Abs Lymphocytes 1.4 10^3/uL N 1.0-4.8 Abs Monocytes 0.8 10^3/uL N 0-0.8 Abs Eosinophils 0.1 10^3/uL N 0-0.6 Abs Basophils 0 10^3/uL N 0-0.2 Abs Nucleated RBC 0 10^3/uL N Granulocyte % 60.7 % N 38-83 Lymphocyte % 23.1 % Low 25-47 Monocyte % 13.3 % High 1-9 Eosinophil % 2.4 % N 0-6 Basophil % 0.5 % N 0-2 Nucleated Red Blood Cells % 0.1 N CBC No Diff 12/28/2014 [facility] White Blood 5.2 10^3/uL N 4.8-10.[address] [place] [address] [phone] Red Blood Count 4.52 10^6/uL N 4.0-5.4 Hemoglobin 13.9 g/dL Low 14.0-18.0 Hematocrit 43 % N 42-52 Mean Corpuscular Volume 94 fL N 80-94 Mean Corpuscular Hemoglobin 31 pg N 27-31 Mean Corpuscular HGB Conc 33 g/dL N 31-36 Red Cell Distribution Width 13 % N 10.5-15 Platelet Count 84 10^3/uL Low 150-450 Mean Platelet Volume 8 um3 N 7.4-10.4 Inr/Protime 12/28/2014 [facility] Inr 0.93 N 0.78-1.[address] [place] [address] [phone] Laboratory test 12/28/2014 [facility] Partial 32.0 seconds N 26.0-36.[address] [place] [address] PTT [phone] Comp Metabolic 12/28/2014 [facility] Sodium 137 mmol/L N 133- [address] [place] [address] [phone] Potassium 4.0 mmol/L N 3.5-5.0 Chloride 104 mmol/L N 101-111 Co2 Carbon Dioxide 26 mmol/L N 22-32 Anion Gap 7 mmol/L N 2-11 Glucose 97 mg/dL N 70-100 Blood Urea Nitrogen 18 mg/dL N 6-24 Creatinine 1.14 mg/dL N 0.67-1.17 BUN/Creatinine Ratio 15.8 N 8-20 Calcium 8.9 mg/dL N 8.6-10.3 Total Protein 7.2 g/dL N 6.4-8.9 Albumin 4.1 g/dL N 3.2-5.2 Globulin 3.1 g/dL N 2-4 Albumin/Globulin Ratio 1.3 N 1-3 Total Bilirubin 0.40 mg/dL N 0.2-1.0 Alkaline Phosphatase 60 U/L N 34-104 Alt 30 U/L N 7-52 Ast 28 U/L N 13-39 Egfr Non- 61.5 N >60 Egfr 79.1 N >60 55 Lipid Panel - [facility] 08/03/2014 Creatine Kinase 100 U/L N 10-223 56, 57 Comp Metabolic Panel 08/03/2014 Sodium 137 mmol/L N 133-145 Potassium 4.0 mmol/L N 3.5-5.0 Chloride 108 mmol/L N 101-111 Co2 Carbon Dioxide 24 mmol/L N 22-32 Anion Gap 5 mmol/L N 2-11 Glucose 94 mg/dL N 70-100 Blood Urea Nitrogen 22 mg/dL N 6-24 Creatinine 1.06 mg/dL N 0.67-1.17 BUN/Creatinine Ratio 20.8 High 8-20 Calcium 8.9 mg/dL N 8.6-10.3 Total Protein 7.0 g/dL N 6.4-8.9 Albumin 4.1 g/dL N 3.2-5.2 Globulin 2.9 g/dL N 2-4 Albumin/Globulin Ratio 1.4 N 1-3 Total Bilirubin 0.50 mg/dL N 0.2-1.0 Alkaline Phosphatase 55 U/L N 34-104 Alt 16 U/L N 7-52 Ast 18 U/L N 13-39 Egfr Non- 67.1 N >60 Egfr 86.2 N >60 58 Lipid Profile (Trig/Chol/HDL) 08/03/2014 Triglycerides 134 mg/dL N 59 Cholesterol 120 mg/dL N 60 HDL Cholesterol 30.2 mg/dL N 61 LDL Cholesterol 63 mg/dL N 62 CBC Auto Diff 08/03/2014 White Blood Count 5.3 10^3/uL N 4.8-10.8 Red Blood Count 4.43 10^6/uL N 4.0-5.4 Hemoglobin 14.2 g/dL N 14.0-18.0 Hematocrit 41 % Low 42-52 Mean Corpuscular Volume 93 fL N 80-94 Mean Corpuscular Hemoglobin 32 pg High 27-31 Mean Corpuscular HGB Conc 35 g/dL N 31-36 Red Cell Distribution Width 13 % N 10.5-15 Platelet Count 69 10^3/uL Low 150-450 Mean Platelet Volume 8 um3 N 7.4-10.4 Abs Neutrophils 3.3 10^3/uL N 1.5-7.7 Abs Lymphocytes 1.2 10^3/uL N 1.0-4.8 Abs Monocytes 0.6 10^3/uL N 0-0.8 Abs Eosinophils 0.1 10^3/uL N 0-0.6 Abs Basophils 0 10^3/uL N 0-0.2 Abs Nucleated RBC 0 10^3/uL N Granulocyte % 62.2 % N 38-83 Lymphocyte % 22.0 % Low 25-47 Monocyte % 12.2 % High 1-9 Eosinophil % 2.8 % N 0-6 Basophil % 0.8 % N 0-2 Nucleated Red Blood Cells % 0 N Laboratory test 08/03/2014 TSH (Thyroid 5.32 IU/mL N 0.34-5.60 63 finding Stimulating Horm) Order 04/24/2014 [facility] Echocardiogram <pending> [address] [place] [address] [phone] Laboratory test 02/06/2014 [facility] Chromosome Hold See Comment N [address] [place] [address] [phone] Plasma Cell 02/06/2014 [facility] Plasma Cell Prolif Bone Marrow N Profliferative [address] [place] [address] [phone] Plasma Cell Prolif Specimen Id [id number] N Plasma Cell Prolif Order Date 07 Feb 2014 15:2 <SEE NOTE> N 65 Plasma Cell Referral Reason See Comment N 66 Plasma Cell Prolif Dis Method See Comment N 67 Plasma Cell Prolif Dis Results See Comment N 68 Plasma Cell Dis Interpretation See Comment N 69 Plasma Cell Prolif Ophthalmic Tech See Comment N 70 Plasma Cell Prolif Report Date 22 Feb 2014 15:4 <SEE NOTE> N 71 Leukemia/Lymphoma Flow 02/06/2014 [facility] LCMS See Comment N [address] [place] [address] Description [phone] LCMS Special Studies See Comment N 73 LCMS Final Diagnosis See Comment N 74 CBC With 01/26/2014 [facility] White Blood 5.9 10^3/uL N 4.8- 10.8 Manual Diff [address] [place] [address] [phone] Red Blood Count 4.31 10^6/uL N 4.0-5.4 Hemoglobin 13.8 g/dL Low 14.0-18.0 Hematocrit 39 % Low 42-52 Mean Corpuscular Volume 91 fL N 80-94 Mean Corpuscular Hemoglobin 32 pg High 27-31 Mean Corpuscular HGB Conc 35 g/dL N 31-36 Red Cell Distribution Width 14 % N 10.5-15 Platelet Count 84 10^3/uL Low 150-450 75 Mean Platelet Volume 8 um3 N 7.4-10.4 Abs Neutrophils 3.6 10^3/uL N 1.5-7.7 Abs Lymphocytes 1.2 10^3/uL N 1.0-4.8 Abs Monocytes 0.8 10^3/uL N 0-0.8 Abs Eosinophils 0.2 10^3/uL N 0-0.6 Abs Basophils 0 10^3/uL N 0-0.2 Abs Nucleated RBC 0.01 10^3/uL N Neutrophil % 58 % N 38-83 Band % 1 % N 0-8 Lymphocytes % 23 % Low 25-47 Monocytes % 12 % N 0-13 Eosinophils % 5 % N 0-6 Reactive Lymph % 1 % N 0-6 RBC Morphology Normal N Normal Laboratory test 01/26/2014 [facility] Beta 2 2.69 N [address] Microglobulin g/mL [place], [place] [address] [phone] Immunoglobulins 01/26/2014 [facility] Immunoglobulin G 1770 Abnormal 767 - 77 Serum Quant [address] mg/dL 1590 [place], [place] [address] [phone] Immunoglobulin M 20 mg/dL Abnormal 37 - 286 Immunoglobulin A 143 mg/dL N 61 - 356 Heron/Lambda Free 01/26/2014 [facility] Heron Free 1.31 mg/dL N 78 Light Chains Ser [address] Light Chain [place], [place] [address] [phone] Lambda Free Light Chain 1.58 mg/dL N 79 Heron/Lambda Free Light Chain 0.8291 N 80 Laboratory test 01/22/2014 [facility] Uric Acid 4.1 mg/dL Low 4.4-7.[address] [place], [place] [address] [phone] CBC Auto Diff 01/22/2014 [facility] White Blood 7.1 10^3/uL N 4.8-10.[address] [place] [address] [phone] Red Blood Count 4.38 10^6/uL N 4.0-5.4 Hemoglobin 13.7 g/dL Low 14.0-18.0 Hematocrit 40 % Low 42-52 Mean Corpuscular Volume 92 fL N 80-94 Mean Corpuscular Hemoglobin 31 pg N 27-31 Mean Corpuscular HGB Conc 34 g/dL N 31-36 Red Cell Distribution Width 13 % N 10.5-15 Platelet Count 82 10^3/uL Low 150-450 81 Mean Platelet Volume 8 um3 N 7.4-10.4 Abs Neutrophils 4.8 10^3/uL N 1.5-7.7 Abs Lymphocytes 1.3 10^3/uL N 1.0-4.8 Abs Monocytes 0.8 10^3/uL N 0-0.8 Abs Eosinophils 0.2 10^3/uL N 0-0.6 Abs Basophils 0 10^3/uL N 0-0.2 Abs Nucleated RBC 0 10^3/uL N Granulocyte % 67.0 % N 38-83 Lymphocyte % 18.3 % Low 25-47 Monocyte % 11.5 % High 1-9 Eosinophil % 2.9 % N 0-6 Basophil % 0.3 % N 0-2 Nucleated Red Blood Cells % 0 N Oncology CBC 01/15/2014 [facility] White Blood 5.7 10^3/uL N 4.8-10.8 Auto Diff [address] [place] [address] [phone] Red Blood Count 4.38 10^6/uL N 4.0-5.4 Hemoglobin 13.5 g/dL Low 14.0-18.0 Hematocrit 40 % Low 42-52 Mean Corpuscular Volume 92 fL N 80-94 Mean Corpuscular Hemoglobin 31 pg N 27-31 Mean Corpuscular HGB Conc 33 g/dL N 31-36 Red Cell Distribution Width 13 % N 10.5-15 Platelet Count 69 10^3/uL Low 150-450 Mean Platelet Volume 8 um3 N 7.4-10.4 Abs Neutrophils 3.6 10^3/uL N 1.5-7.7 Abs Lymphocytes 1.2 10^3/uL N 1.0-4.8 Abs Monocytes 0.7 10^3/uL N 0-0.8 Abs Eosinophils 0.2 10^3/uL N 0-0.6 Abs Basophils 0 10^3/uL N 0-0.2 Granulocyte % 61.5 % N 38-83 Lymphocyte % 21.6 % Low 25-47 Monocyte % 12.7 % High 1-9 Eosinophil % 3.7 % N 0-6 Basophil % 0.5 % N 0-2 Comp Metabolic Panel 01/15/2014 [facility] Sodium 137 mmol/L N 133-[address] [place] [address] [phone] Potassium 3.8 mmol/L N 3.7-5.6 Chloride 108 mmol/L N 101-111 Co2 Carbon Dioxide 24 mmol/L N 22-32 Anion Gap 5 mmol/L N 2-11 Glucose 116 mg/dL High 70-100 Blood Urea Nitrogen 18 mg/dL N 6-24 Creatinine 1.11 mg/dL N 0.67-1.17 BUN/Creatinine Ratio 16.2 N 8-20 Calcium 8.9 mg/dL N 8.6-10.3 Total Protein 7.2 g/dL N 6.4-8.9 Albumin 3.9 g/dL N 3.2-5.2 Globulin 3.3 g/dL N 2-4 Albumin/Globulin Ratio 1.2 N 1-3 Total Bilirubin 0.40 mg/dL N 0.2-1.0 Alkaline Phosphatase 50 U/L N 34-104 Alt 25 U/L N 7-52 Ast 23 U/L N 13-39 Egfr Non- 63.6 N >60 Egfr 81.8 N >60 82 Laboratory test finding 01/15/2014 [facility] LDH 156 U/L N 140-[address] [place] [address] [phone] Ferritin 38.7 ng/mL N 24-336 Vitamin B12 386 pg/mL N 180-914 83 Hepatitis B Surface Antigen Nonreactive N Nonreactive Hepatitis B 01/15/2014 [facility] Hepatitis B Nonreactive N Nonreactive Hermilo AB Titer [address] [place] [address] [phone] Hep B Surf AB Level < 3.10 mIU/mL N <12 84 Laboratory 01/15/2014 [facility] Hepatitis C Nonreactive N Nonreactive test finding [address] [place] [address] [phone] Hepatitis B Core Total Ab Negative N Negative 85 Protein 01/15/2014 [facility] Total 7.3 g/dL N 6.3 - Electrophoresis [address] Protein(Pep) 7.9 [place] [address] [phone] Albumin 3.6 g/dL N 3.4-4.7 Alpha-1 Globulin 0.2 g/dL N 0.1-0.3 Alpha-2 Globulin 0.9 g/dL N 0.6-1.0 Beta Globulin 1.1 g/dL N 0.7-1.2 Gamma Globulin 1.6 g/dL N 0.6-1.6 Albumin/Globulin Ratio 0.96 N M Rogelio 1.3 g/dL N Impression See Comment N 86 Immunofixation See Comment N 87 Urinalysis Profile 12/27/2013 [facility] Urine Color Straw N [address] [place] [address] [phone] Urine Appearance Clear N Urine Specific [place] 1.008 Low 1.010-1.030 Urine pH 7.0 N 5-9 Urine Urobilinogen Negative N Negative Urine Ketones Negative N Negative Urine Protein 1+(30 mg/dL) Abnormal Negative Urine Leukocytes Negative N Negative Urine Blood 1+ Abnormal Negative Urine Nitrite Negative N Negative Urine Bilirubin Negative N Negative Urine Glucose Negative N Negative Urine White Blood Cell Trace N Absent Urine Red Blood Cell Trace N Absent Urine Bacteria Absent N Absent CBC Auto Diff 12/26/2013 [facility] White Blood 5.6 10^3/uL N 4.8-10.[address] [place] [address] [phone] Red Blood Count 4.19 10^6/uL N 4.0-5.4 Hemoglobin 13.2 g/dL Low 14.0-18.0 Hematocrit 38 % Low 42-52 Mean Corpuscular Volume 91 fL N 80-94 Mean Corpuscular Hemoglobin 32 pg High 27-31 Mean Corpuscular HGB Conc 35 g/dL N 31-36 Red Cell Distribution Width 14 % N 10.5-15 Platelet Count 69 10^3/uL Low 150-450 Mean Platelet Volume 8 um3 N 7.4-10.4 Abs Neutrophils 3.8 10^3/uL N 1.5-7.7 Abs Lymphocytes 1.0 10^3/uL N 1.0-4.8 Abs Monocytes 0.6 10^3/uL N 0-0.8 Abs Eosinophils 0.1 10^3/uL N 0-0.6 Abs Basophils 0 10^3/uL N 0-0.2 Abs Nucleated RBC 0 10^3/uL N Granulocyte % 68.3 % N 38-83 Lymphocyte % 17.6 % Low 25-47 Monocyte % 11.4 % High 1-9 Eosinophil % 2.4 % N 0-6 Basophil % 0.3 % N 0-2 Nucleated Red Blood Cells % 0 N Inr/Protime 12/26/2013 [facility] Inr 0.95 N 0.85-1.06 [address] [place] [address] [phone] Comp Metabolic Panel 12/26/2013 [facility] Sodium 135 mmol/L N 133-145 [address] [place] [address] [phone] Potassium 3.7 mmol/L N 3.7-5.6 Chloride 105 mmol/L N 101-111 Co2 Carbon Dioxide 26 mmol/L N 22-32 Anion Gap 4 mmol/L N 2-11 Glucose 126 mg/dL High 70-100 Blood Urea Nitrogen 21 mg/dL N 6-24 Creatinine 1.14 mg/dL N 0.67-1.17 BUN/Creatinine Ratio 18.4 N 8-20 Calcium 8.9 mg/dL N 8.6-10.3 Total Protein 7.3 g/dL N 6.4-8.9 Albumin 3.9 g/dL N 3.2-5.2 Globulin 3.4 g/dL N 2-4 Albumin/Globulin Ratio 1.1 N 1-3 Total Bilirubin 0.40 mg/dL N 0.2-1.0 Alkaline Phosphatase 50 U/L N 34-104 Alt 22 U/L N 7-52 Ast 22 U/L N 13-39 Egfr Non- 61.7 N >60 Egfr 79.3 N >60 88 Comp Metabolic Panel 07/14/2013 [facility] Sodium 139 mmol/L N 133-[address] [place] [address] [phone] Potassium 3.9 mmol/L N 3.7-5.6 Chloride 109 mmol/L N 101-111 Co2 Carbon Dioxide 25 mmol/L N 22-32 Anion Gap 5 mmol/L N 2-11 Glucose 111 mg/dL High 70-100 Blood Urea Nitrogen 23 mg/dL N 6-24 Creatinine 1.12 mg/dL N 0.67-1.17 BUN/Creatinine Ratio 20.5 High 8-20 Calcium 9.0 mg/dL N 8.6-10.3 Total Protein 7.1 g/dL N 6.4-8.9 Albumin 4.0 g/dL N 3.2-5.2 Globulin 3.1 g/dL N 2-4 Albumin/Globulin Ratio 1.3 N 1-3 Total Bilirubin 0.60 mg/dL N 0.2-1.0 Alkaline Phosphatase 57 U/L N 34-104 Alt 20 U/L N 7-52 Ast 20 U/L N 13-39 Egfr Non- 63.1 N >60 Egfr 81.1 N >60 90 Lipid Profile 07/14/2013 [facility] Triglycerides 151 mg/dL N 91 (Trig/Chol/HDL) [address] [place] [address] [phone] Cholesterol 129 mg/dL N 92 HDL Cholesterol 29.2 mg/dL N 93 LDL Cholesterol 70 mg/dL N 94 Laboratory test 07/14/2013 [facility] Pathologist (SEE NOTE) N [address] [place] [address] [phone] CBC Auto Diff 07/14/2013 [facility] White Blood Count 5.9 10^3/ uL N 4.8-[address] 0.8 [place] [address] [phone] Red Blood Count 4.50 10^6/uL N 4.0-5.4 Hemoglobin 14.5 g/dL N 14.0-18.0 Hematocrit 41 % Low 42-52 Mean Corpuscular Volume 91 fL N 80-94 Mean Corpuscular Hemoglobin 32 pg High 27-31 Mean Corpuscular HGB Conc 35 g/dL N 31-36 Red Cell Distribution Width 13 % N 10.5-15 Platelet Count 73 10^3/uL Low 150-450 Mean Platelet Volume 9 um3 N 7.4-10.4 Abs Neutrophils 3.5 10^3/uL N 1.5-7.7 Abs Lymphocytes 1.4 10^3/uL N 1.0-4.8 Abs Monocytes 0.7 10^3/uL N 0-0.8 Abs Eosinophils 0.2 10^3/uL N 0-0.6 Abs Basophils 0 10^3/uL N 0-0.2 Abs Nucleated RBC 0.01 10^3/uL N Granulocyte % 59.9 % N 38-83 Lymphocyte % 24.6 % Low 25-47 Monocyte % 12.5 % High 1-9 Eosinophil % 2.6 % N 0-6 Basophil % 0.4 % N 0-2 Nucleated Red Blood Cells % 0.1 N Laboratory 02/17/2013 [facility] TSH (Thyroid 6.24 High 0.34- 5.60 test finding [address] Stimulating miu/[place] [address] Horm) [phone] CBC Auto Diff 02/17/2013 [facility] White Blood 7.5 4.8-10.[address] Count 10^3/[place] [address] [phone] Red Blood Count 4.52 10^6/uL 4.0-5.4 Hemoglobin 13.6 g/dL Low 14.0-18.0 Hematocrit 42 % 42-52 Mean Corpuscular Volume 92 fL 80-94 Mean Corpuscular Hemoglobin 30 pg 27-31 Mean Corpuscular HGB Conc 33 g/dL 31-36 Red Cell Distribution Width 13 % 10.5-15 Platelet Count 89 10^3/uL Low 150-450 96 Mean Platelet Volume 8 um3 7.4-10.4 Abs Neutrophils 4.3 10^3/uL 1.5-7.7 Abs Lymphocytes 1.8 10^3/uL 1.0-4.8 Abs Monocytes 1.0 10^3/uL High 0-0.8 Abs Eosinophils 0.2 10^3/uL 0-0.6 Abs Basophils 0 10^3/uL 0-0.2 Abs Nucleated RBC 0.01 10^3/uL Granulocyte % 57.9 % 38-83 Lymphocyte % 24.8 % Low 25-47 Monocyte % 13.9 % High 1-9 Eosinophil % 2.9 % 0-6 Basophil % 0.5 % 0-2 Nucleated Red Blood Cells % 0.1 Laboratory test 02/17/2013 [facility] Erythrocyte Sed 33 mm/Hr 0-40 [address] [place] [address] [phone] Laboratory test 02/17/2013 [facility] PSA Screening 4.04 High 0-4.[address] ng/[place] [address] [phone] Lipid Panel - 11/18/2012 [facility] Creatine Kinase 98 U/L 0- [address] [place] [address] [phone] CMP Panel 11/18/2012 [facility] Sodium 136 133-[address] mmol/[place] [address] [phone] Potassium 4.0 mmol/L 3.5-5.0 Chloride 106 mmol/L 101-111 Co2 Carbon Dioxide 25.0 mmol/L 22-32 Anion Gap 5.0 mmol/L 2-11 Glucose 106 mg/dL High 70-100 Blood Urea Nitrogen 20 mg/dL 6-24 Creatinine 1.20 mg/dL 0.50-1.40 BUN/Creatinine Ratio 16.7 8-20 Calcium 8.9 mg/dL 8.1-9.9 Total Protein 6.6 g/dL 6.2-8.1 Albumin 3.6 g/dL 3.2-5.2 Globulin 3.0 g/dL 2-4 Albumin/Globulin Ratio 1.2 1-3 Total Bilirubin 0.6 mg/dL 0.4-1.5 Alkaline Phosphatase 56 U/L 30-110 Alt 24 U/L 14-54 Ast 26 U/L 12-42 Egfr Non- 58.4 >60 Egfr 75.1 >60 98 Lipid Panel 11/18/2012 [facility] Triglycerides 126 mg/dL 40- [address] [place] [address] [phone] Cholesterol 109 mg/dL Less than 200 HDL Cholesterol 30 mg/dL Low 40-60 99 Cholesterol/HDL Ratio 3.6 Average 1-4.44 LDL Cholesterol 53.8 Less Than 100 100 Laboratory test 08/17/2012 [facility] Blood Urea 20 mg/dL 6- [address] [place] [address] [phone] Creatinine 08/17/2012 [facility] Creatinine 1.20 mg/dL 0.50- 1.40 [address] [place] [address] [phone] Egfr Non- 58.4 >60 Egfr 75.1 >60 101 Comp Metabolic Panel 08/17/2012 [facility] Sodium 139 mmol/L 133-145 [address] [place] [address] [phone] Potassium 4.3 mmol/L 3.5-5.0 Chloride 105 mmol/L 101-111 Co2 Carbon Dioxide 28.0 mmol/L 22-32 Anion Gap 6.0 mmol/L 2-11 Glucose 113 mg/dL High 70-100 Blood Urea Nitrogen 18 mg/dL 6-24 Creatinine 1.20 mg/dL 0.50-1.40 BUN/Creatinine Ratio 15.0 8-20 Calcium 9.2 mg/dL 8.1-9.9 Total Protein 6.3 g/dL 6.2-8.1 Albumin 3.8 g/dL 3.2-5.2 Globulin 2.5 g/dL 2-4 Albumin/Globulin Ratio 1.5 1-3 Total Bilirubin 0.8 mg/dL 0.4-1.5 Alkaline Phosphatase 58 U/L 30-110 Alt 26 U/L 14-54 Ast 27 U/L 12-42 Egfr Non- 58.4 >60 Egfr 75.1 >60 102 Laboratory test 08/17/2012 [facility] Cholesterol 132 mg/dL Less than finding [address] 200 [place] [address] [phone] LDL Cholesterol Direct 67 mg/dL Less Than 100 103 CBC Auto Diff 08/17/2012 [facility] White Blood 5.6 10^3/uL 4.8-10.[address] [place] [address] [phone] Red Blood Count 4.49 10^6/uL 4.0-5.4 Hemoglobin 14.1 g/dL 14.0-18.0 Hematocrit 41 % Low 42-52 Mean Corpuscular Volume 92 fL 80-94 Mean Corpuscular Hemoglobin 31 pg 27-31 Mean Corpuscular HGB Conc 34 g/dL 31-36 Red Cell Distribution Width 13 % 10.5-15 Platelet Count 74 10^3/uL Low 150-450 104 Mean Platelet Volume 9 um3 7.4-10.4 Abs Neutrophils 3.6 10^3/uL 1.5-7.7 Abs Lymphocytes 1.2 10^3/uL 1.0-4.8 Abs Monocytes 0.6 10^3/uL 0-0.8 Abs Eosinophils 0.2 10^3/uL 0-0.6 Abs Basophils 0 10^3/uL 0-0.2 Abs Nucleated RBC 0 10^3/uL Granulocyte % 63.7 % 38-83 Lymphocyte % 22.0 % Low 25-47 Monocyte % 10.9 % High 1-9 Eosinophil % 3.2 % 0-6 Basophil % 0.2 % 0-2 Nucleated Red Blood Cells % 0 Laboratory test finding 03/02/2012 [facility] Ast 27 U/L 12- 42 [address] [place] [address] [phone] PSA Diagnostic 3.22 NG/ML 0-4.0 105 TSH (Thyroid Stimulating Horm) 4.67 MIU/ML 0.34-5.60 Lipid Profile 03/02/2012 [facility] Triglycerides 213 mg/dL High 40-200 (Trig/Chol/HDL) [address] [place] [address] [phone] Cholesterol 129 mg/dL Less than 200 HDL Cholesterol 31 mg/dL Low 40-60 106 Cholesterol/HDL Ratio 4.2 AVERAGE 1-4.44 LDL Cholesterol 55.4 mg/dL Less Than 100 107 Comp Metabolic Panel 10/09/2011 [facility] Sodium 138 mmol/L 135-145 [address] [place] [address] [phone] Potassium 4.1 mmol/L 3.5-5.0 Chloride 106 mmol/L 101-111 Co2 (Carbon Dioxide) 28.0 mmol/L 22-32 Anion Gap 4.0 mmol/L 2-11 108 Glucose 99 mg/dL 70-100 BUN 18 mg/dL 6-24 Creatinine 1.3 mg/dL 0.50-1.40 One Over Creatinine 0.76 BUN/Creatinine Ratio 13.8 8-20 Calcium 9.0 mg/dL 8.1-9.9 Total Protein 6.5 GM/DL 6.2-8.1 Albumin 3.7 GM/DL 3.2-5.2 Globulin 2.8 GM/DL 2-4 Albumin/Globulin Ratio 1.3 1-3 Bilirubin Total 0.7 mg/dL 0.4-1.5 109 Alkaline Phosphatase 57 U/L 39-117 Alt (SGPT) 33 U/L 17-63 Ast (Sgot) 29 U/L 12-42 eGFR Non- 53.4 > 60 eGFR 68.7 > 60 110 Lipid Profile 10/09/2011 [facility] Triglyceride 211 mg/dL High 40-200 (Trig/Chol/HDL) [address] [place] [address] [phone] Cholesterol 127 mg/dL Less Than 200 111 High Density Lipoprotein 29 mg/dL Low 40-60 112 Cholesterol/HDL Ratio 4.38 AVERAGE 1-4.97 Low Density Lipoprotein 56 mg/dL Less Than 100 113 CBC Auto Diff 10/09/2011 [facility] White Blood 6.1 CUMM 4.8- 10.[address] [place] [place] [address] [phone] Red Cell Count 4.44 CUMM Low 4.6-6.2 Hemoglobin 14.1 g/dL 14.0-18.0 Hematocrit 41 % Low 42-52 Mean Corpuscular Volume 92 um3 80-94 Mean Corpuscular Hemoglob 32 pg High 27-31 Mean Corpuscular HGB Cone 35 g/dL 32-36 Redcell Distribution WDTH 13 % 10.5-15 Platelet Count 76 CUMM Low 150-450 114 Mean Platelet Volume 8.8 um3 7.4-10.4 Gran % 60.3 % 38-83 Lymph % 24.9 % Low 25-47 Mononuclear % 11.6 % High 1-9 Eosinophil % 2.9 % 0-6 Basophil % 0.3 % 0-2 Abs Lymphs 1.5 1.0-4.8 Abs Mononuclear 0.7 0-0.8 Absolute Neutrophil Count 3.7 1.5-7.7 Abs Eosinophils 0.2 0-0.6 Abs Basophils 0 0-0.2 115 Laboratory test 10/09/2011 [facility] BNP Evaluatr 74.0 pg/mL 0-[address] [place] [address] [phone] CPK (Creatine Kinase) 106 U/L 0-200 CBC Auto Diff 07/16/2011 [facility] White Blood 6.7 CUMM 4.8- 10.[address] [place] [address] [phone] Red Cell Count 4.40 CUMM Low 4.6-6.2 Hemoglobin 14.4 g/dL 14.0-18.0 Hematocrit 41 % Low 42-52 Mean Corpuscular Volume 93 um3 80-94 Mean Corpuscular Hemoglob 33 pg High 27-31 Mean Corpuscular HGB Cone 35 g/dL 32-36 Redcell Distribution WDTH 14 % 10.5-15 Platelet Count 86 CUMM Low 150-450 116 Mean Platelet Volume 9.5 um3 7.4-10.4 Gran % 62.1 % 38-83 Lymph % 21.4 % Low 25-47 Mononuclear % 14.1 % High 1-9 Eosinophil % 2.0 % 0-6 Basophil % 0.4 % 0-2 Abs Lymphs 1.4 1.0-4.8 Abs Mononuclear 0.9 High 0-0.8 Absolute Neutrophil Count 4.2 1.5-7.7 Abs Eosinophils 0.1 0-0.6 Abs Basophils 0 0-0.2 117 Comp Metabolic Panel 07/16/2011 [facility] Sodium 137 mmol/L 135-[address] [place] [address] [phone] Potassium 4.6 mmol/L 3.5-5.0 Chloride 104 mmol/L 101-111 Co2 (Carbon Dioxide) 30.0 mmol/L 22-32 Anion Gap 3.0 mmol/L 2-11 118 Glucose 76 mg/dL 70-100 BUN 19 mg/dL 6-24 Creatinine 1.3 mg/dL 0.50-1.40 One Over Creatinine 0.76 BUN/Creatinine Ratio 14.6 8-20 Calcium 9.8 mg/dL 8.1-9.9 Total Protein 7.0 GM/DL 6.2-8.1 Albumin 4.0 GM/DL 3.2-5.2 Globulin 3.0 GM/DL 2-4 Albumin/Globulin Ratio 1.3 1-3 Bilirubin Total 1.0 mg/dL 0.4-1.5 119 Alkaline Phosphatase 63 U/L 39-117 Alt (SGPT) 27 U/L 17-63 Ast (Sgot) 27 U/L 12-42 eGFR Non- 53.4 > 60 eGFR 68.7 > 60 120 Lipid Profile 03/18/2011 [facility] Triglyceride 235 mg/dL High 40-200 (Trig/Chol/HDL) [address] [place] [address] [phone] Cholesterol 145 mg/dL Less Than 200 121 High Density Lipoprotein 33 mg/dL Low 40-60 122 Cholesterol/HDL Ratio 4.39 AVERAGE 1-4.97 Low Density Lipoprotein 65 mg/dL Less Than 100 123 Comp Metabolic Panel 03/18/2011 [facility] Sodium 135 mmol/L 135-[address] [place] [address] [phone] Potassium 4.5 mmol/L 3.5-5.0 Chloride 103 mmol/L 101-111 Co2 (Carbon Dioxide) 27.0 mmol/L 22-32 Anion Gap 5.0 mmol/L 2-11 124 Glucose 96 mg/dL 70-100 BUN 16 mg/dL 6-24 Creatinine 1.3 mg/dL 0.50-1.40 One Over Creatinine 0.76 BUN/Creatinine Ratio 12.3 8-20 Calcium 9.0 mg/dL 8.1-9.9 Total Protein 7.2 GM/DL 6.2-8.1 Albumin 3.8 GM/DL 3.2-5.2 Globulin 3.4 GM/DL 2-4 Albumin/Globulin Ratio 1.1 1-3 Bilirubin Total 0.7 mg/dL 0.4-1.5 125 Alkaline Phosphatase 58 U/L 39-117 Alt (SGPT) 33 U/L 17-63 Ast (Sgot) 28 U/L 12-42 eGFR Non- 53.4 > 60 eGFR 68.7 > 60 126 Lipid Panel - 03/18/2011 [facility] CPK (Creatine 115 U/L 0- [address] Kinase) [place] [address] [phone] Laboratory test 03/18/2011 [facility] LDL Direct 76 mg/dL Less Than [address] 100 [place] [address] [phone] TSH 5.35 MIU/ML 0.34-5.60 Laboratory test 02/05/2011 [facility] Cholesterol 133 mg/dL Less Than [address] 200 [place] [address] [phone] LDL Direct 71 mg/dL Less Than 100 129 Ast (Sgot) 27 U/L 12-42 TSH 5.48 MIU/ML 0.34-5.60 Comp Metabolic Panel 02/05/2011 [facility] Sodium 142 mmol/L 135-[address] [place] [address] [phone] Potassium 3.9 mmol/L 3.5-5.0 Chloride 110 mmol/L 101-111 Co2 (Carbon Dioxide) 24.0 mmol/L 22-32 Anion Gap 8.0 mmol/L 2-11 130 Glucose 101 mg/dL High 70-100 BUN 19 mg/dL 6-24 Creatinine 1.3 mg/dL 0.50-1.40 One Over Creatinine 0.76 BUN/Creatinine Ratio 14.6 8-20 Calcium 8.7 mg/dL 8.1-9.9 Total Protein 6.8 GM/DL 6.2-8.1 Albumin 3.9 GM/DL 3.2-5.2 Globulin 2.9 GM/DL 2-4 Albumin/Globulin Ratio 1.3 1-3 Bilirubin Total 0.5 mg/dL 0.4-1.5 131 Alkaline Phosphatase 57 U/L 39-117 Alt (SGPT) 28 U/L 17-63 Ast (Sgot) 25 U/L 12-42 eGFR Non- 53.4 > 60 eGFR 68.7 > 60 132 Lipid Profile 02/05/2011 [facility] Triglyceride 196 mg/dL 40 -200 (Trig/Chol/HDL) [address] [place] [address] [phone] Cholesterol 131 mg/dL Less Than 200 133 High Density Lipoprotein 30 mg/dL Low 40-60 134 Cholesterol/HDL Ratio 4.37 AVERAGE 1-4.97 Low Density Lipoprotein 62 mg/dL Less Than 100 135 Laboratory test 02/05/2011 [facility] Magnesium 2.0 mg/dL 1.7 -2.[address] [place] [address] [phone] Basic Metabolic 07/09/2010 [facility] Sodium 137 mmol/L 135- [address] [place] [address] [phone] Potassium 4.0 mmol/L 3.5-5.0 Chloride 106 mmol/L 101-111 Co2 (Carbon Dioxide) 26.0 mmol/L 22-32 Anion Gap 5.0 mmol/L 2-11 136 Glucose 105 mg/dL High 70-100 BUN 17 mg/dL 6-24 Creatinine 1.10 mg/dL 0.50-1.40 One Over Creatinine 0.90 BUN/Creatinine Ratio 15.5 8-20 Calcium 8.8 mg/dL 8.1-9.9 eGFR Non- 64.9 > 60 eGFR 83.5 > 60 137 Laboratory test 07/09/2010 [facility] BNP Evaluatr 73.0 pg/mL 0-[address] [place] [address] [phone] TSH 6.96 MIU/ML High 0.34-5.60 CBC With 07/09/2010 [facility] White Blood 6.7 CUMM 4.8-10.8 Electronic Diff [address] [place] [address] [phone] Red Cell Count 4.37 CUMM Low 4.6-6.2 Hemoglobin 13.7 g/dL Low 14.0-18.0 Hematocrit 40 % Low 42-52 Mean Corpuscular Volume 91 um3 80-94 Mean Corpuscular Hemoglob 31 pg 27-31 Mean Corpuscular HGB Cone 35 g/dL 32-36 Redcell Distribution WDTH 13 % 10.5-15 Platelet Count 80 CUMM Low 150-450 138 Mean Platelet Volume 9.2 um3 7.4-10.4 Gran % 61.6 % 38-83 Lymph % 22.5 % Low 25-47 Mononuclear % 11.4 % High 1-9 Eosinophil % 4.2 % 0-6 Basophil % 0.3 % 0-2 Abs Lymphs 1.5 1.0-4.8 Abs Mononuclear 0.8 0-0.8 Absolute Neutrophil Count 4.1 1.5-7.7 Abs Eosinophils 0.3 0-0.6 Abs Basophils 0 0-0.2 139 Laboratory test 07/09/2010 [facility] Cholesterol 132 mg/dL Less Than [address] 200 [place] [address] [phone] LDL Direct 64 mg/dL Less Than 100 141 Ast (Sgot) 26 U/L 12-42 CBC With 02/20/2010 [facility] White Blood 6.2 CUMM 4.8-10.8 Electronic Diff [address] [place] [address] [phone] Red Cell Count 4.38 CUMM Low 4.6-6.2 Hemoglobin 13.9 g/dL Low 14.0-18.0 Hematocrit 40 % Low 42-52 Mean Corpuscular Volume 92 um3 80-94 Mean Corpuscular Hemoglob 32 pg High 27-31 Mean Corpuscular HGB Cone 35 g/dL 32-36 Redcell Distribution WDTH 13 % 10.5-15 Platelet Count 91 CUMM Low 150-450 Mean Platelet Volume 7.8 um3 7.4-10.4 Gran % 55.5 % 38-83 Lymph % 26.4 % 25-47 Mononuclear % 14.1 % High 1-9 Eosinophil % 3.5 % 0-6 Basophil % 0.5 % 0-2 Abs Lymphs 1.6 1.0-4.8 Abs Mononuclear 0.9 High 0-0.8 Absolute Neutrophil Count 3.4 1.5-7.7 Abs Eosinophils 0.2 0-0.6 Abs Basophils 0 0-0.2 142 Comp Metabolic Panel 02/20/2010 [facility] Sodium 136 mmol/L 135-[address] [place] [address] [phone] Potassium 3.7 mmol/L 3.5-5.0 Chloride 105 mmol/L 101-111 Co2 (Carbon Dioxide) 27.0 mmol/L 22-32 Anion Gap 4.0 mmol/L 2-11 143 Glucose 101 mg/dL High 70-100 144 BUN 19 mg/dL 6-24 Creatinine 1.20 mg/dL 0.50-1.40 One Over Creatinine 0.80 BUN/Creatinine Ratio 15.8 8-20 Calcium 8.5 mg/dL 8.1-9.9 Total Protein 6.7 GM/DL 6.2-8.1 Albumin 3.7 GM/DL 3.2-5.2 Globulin 3.0 GM/DL 2-4 Albumin/Globulin Ratio 1.2 1-3 Bilirubin Total 0.7 mg/dL 0.4-1.5 145 Alkaline Phosphatase 62 U/L 39-117 Alt (SGPT) 29 U/L 17-63 Ast (Sgot) 28 U/L 12-42 eGFR Non- 62.4 > 60 eGFR 75.5 > 60 146 Lipid Profile 02/20/2010 [facility] Triglyceride 233 mg/dL High 40-200 (Trig/Chol/HDL) [address] [place] [address] [phone] Cholesterol 137 mg/dL Less Than 200 147 High Density Lipoprotein 31 mg/dL Low 40-60 148 Cholesterol/HDL Ratio 4.42 AVERAGE 1-4.97 Low Density Lipoprotein 59 mg/dL Less Than 100 149 Laboratory test 02/20/2010 [facility] PSA,Diagnostic 3.66 0- [address] NG/[place] [address] [phone] Lipid Profile 04/17/2009 [facility] Triglyceride 248 mg/dL High 40-200 151 (Trig/Chol/HDL) [address] [place] [address] [phone] Cholesterol 146 mg/dL Less Than 200 152 High Density Lipoprotein 28 mg/dL Low 40-60 153 Cholesterol/HDL Ratio 5.21 AVERAGE High 1-4.97 Low Density Lipoprotein 68 mg/dL Less Than 100 154 Liver Function 04/17/2009 [facility] Total Protein 6.0 GM/DL Low 6.2-8.[address] [place] [address] [phone] Albumin 3.6 GM/DL 3.2-5.2 Globulin 2.4 GM/DL 2-4 Albumin/Globulin Ratio 1.5 1-3 Bilirubin Total 0.8 mg/dL 0.4-1.5 155 Bilirubin Direct 0.1 mg/dL 0.1-0.5 Indirect Bilirubin 0.7 mg/dL 0.1-0.75 Alkaline Phosphatase 53 U/L 39-117 Alt (SGPT) 40 U/L 17-63 Ast (Sgot) 34 U/L 12-42 Laboratory test 04/17/2009 [facility] PSA,Diagnostic 3.26 NG/ML 0-4 156 finding [address] [place] [address] [phone] Comp Metabolic 01/23/2009 [facility] Sodium 137 mmol/L 135- 145 157 Panel [address] [place] [address] [phone] Potassium 3.8 mmol/L 3.5-5.0 Chloride 107 mmol/L 101-111 Co2 (Carbon Dioxide) 27.0 mmol/L 22-32 Anion Gap 3.0 mmol/L 2-11 158 Glucose 95 mg/dL 70-100 159 BUN 17 mg/dL 6-24 Creatinine 1.30 mg/dL 0.50-1.40 One Over Creatinine 0.70 BUN/Creatinine Ratio 13.1 8-20 Calcium 8.6 mg/dL 8.1-9.9 160 Total Protein 6.4 GM/DL 6.2-8.1 Albumin 3.5 GM/DL 3.2-5.2 Globulin 2.9 GM/DL 2-4 Albumin/Globulin Ratio 1.2 1-3 Bilirubin Total 0.6 mg/dL 0.4-1.5 161 Alkaline Phosphatase 62 U/L 39-117 Alt (SGPT) 34 U/L 17-63 Ast (Sgot) 31 U/L 12-42 eGFR Non- 57.0 > 60 eGFR 69.0 > 60 162 Lipid Profile 01/23/2009 [facility] Triglyceride 210 mg/dL High 40-200 (Trig/Chol/HDL) [address] [place] [address] [phone] Cholesterol 131 mg/dL Less Than 200 163 High Density Lipoprotein 27 mg/dL Low 40-60 164 Cholesterol/HDL Ratio 4.85 AVERAGE 1-4.97 Low Density Lipoprotein 62 mg/dL Less Than 100 165 Liver Function 01/23/2009 [facility] Bilirubin Direct 0.1 mg/dL 0.1-0.[address] [place] [address] [phone] Indirect Bilirubin 0.5 mg/dL 0.1-0.75 CBC With Manual 01/23/2009 [facility] White Blood 6.8 CUMM 4.8-10.[address] [place] [address] [phone] Red Cell Count 4.43 CUMM Low 4.6-6.2 Hemoglobin 14.0 g/dL 14.0-18.0 Hematocrit 41 % Low 42-52 Mean Corpuscular Volume 93 um3 80-94 Mean Corpuscular Hemoglob 32 pg High 27-31 Mean Corpuscular HGB Cone 34 g/dL 32-36 Redcell Distribution WDTH 14 % 10.5-15 Platelet Count 86 CUMM Low 150-450 166 Mean Platelet Volume 8.3 um3 7.4-10.4 Polysegmented Neutrophil 59 % 38-83 Lymphocyte 30 % 25-47 Monocyte 10 % 0-13 Eosenophil 1 % 0-6 Absolute Neutrophil Count 4.0 Anisocytosis SLIGHT Laboratory test 01/23/2009 [facility] CPK (Creatine 163 U/L 0 -[address] Kinase) [place] [address] [phone] Comp Metabolic 07/17/2008 [facility] Sodium 138 135-[address] mmol/[place] [address] [phone] Potassium 4.0 mmol/L 3.5-5.0 Chloride 105 mmol/L 101-111 Co2 (Carbon Dioxide) 28.0 mmol/L 22-32 Anion Gap 5.0 mmol/L 2-11 167 Glucose 97 mg/dL 70-100 168 BUN 15 mg/dL 6-24 Creatinine 1.10 mg/dL 0.50-1.40 One Over Creatinine 0.90 BUN/Creatinine Ratio 13.6 8-20 Calcium 8.7 mg/dL 8.1-9.9 169 Total Protein 6.2 GM/DL 6.2-8.1 Albumin 3.5 GM/DL 3.2-5.2 Globulin 2.7 GM/DL 2-4 Albumin/Globulin Ratio 1.3 1-3 Bilirubin Total 0.7 mg/dL 0.4-1.5 Alkaline Phosphatase 66 U/L 39-117 Alt (SGPT) 35 U/L 17-63 Ast (Sgot) 29 U/L 12-42 CBC With Manual 07/17/2008 [facility] White Blood 6.3 CUMM 4.8-10.[address] [place] [address] [phone] Red Cell Count 4.54 CUMM Low 4.6-6.2 Hemoglobin 14.0 g/dL 14.0-18.0 Hematocrit 41 % Low 42-52 Mean Corpuscular Volume 90 um3 80-94 Mean Corpuscular Hemoglob 31 pg 27-31 Mean Corpuscular HGB Cone 34 g/dL 32-36 Redcell Distribution WDTH 13 % 10.5-15 Platelet Count 81 CUMM Low 150-450 170 Mean Platelet Volume 8.8 um3 7.4-10.4 Polysegmented Neutrophil 55 % 38-83 Band Neutrophil 1 % 0-8 Lymphocyte 32 % 25-47 Monocyte 9 % 0-13 Eosenophil 3 % 0-6 Absolute Neutrophil Count 3.5 Pavel Cells 1+ Lipid Panel - 07/17/2008 [facility] CPK (Creatine 102 U/L 0- [address] Kinase) [place] [address] [phone] Lipid Profile 07/17/2008 [facility] Triglyceride 179 mg/dL 40 -200 (Trig/Chol/HDL [address] ) [place] [address] [phone] Cholesterol 134 mg/dL Less Than 200 171 High Density Lipoprotein 32 mg/dL Low 40-60 172 Cholesterol/HDL Ratio 4.19 AVERAGE 1-4.97 Low Density Lipoprotein 66 mg/dL Less Than 100 173 Liver Function 07/17/2008 [facility] Total Protein 6.6 GM/DL 6.2-8.[address] [place] [address] [phone] Albumin 3.5 GM/DL 3.2-5.2 Globulin 3.1 GM/DL 2-4 Albumin/Globulin Ratio 1.1 1-3 Bilirubin Total 0.7 mg/dL 0.4-1.5 Bilirubin Direct 0.2 mg/dL 0.1-0.5 Indirect Bilirubin 0.5 mg/dL 0.1-0.75 Alkaline Phosphatase 64 U/L 39-117 Alt (SGPT) 34 U/L 17-63 Ast (Sgot) 28 U/L 12-42 Laboratory test 07/17/2008 [facility] PSA,Diagnostic 4.61 NG/ML High 0-4 [address] [place] [address] [phone] 1 Because ethnic data is not always readily available, this report includes an eGFR for both -Americans and non- Americans. The National Kidney Disease Education Program (NKDEP) does not endorse the use of the MDRD equation for patients that are not between the ages of 18 and 70, are , have extremes of body size, muscle mass, or nutritional status, or are non- or non-. According to the National Kidney Foundation, irrespective of diagnosis, the stage of the disease is based on the level of kidney function: Stage Description GFR(mL/min/1.73 m(2)) 1 Kidney damage with normal or decreased GFR 90 2 Kidney damage with mild decrease in GFR 60-89 3 Moderate decrease in GFR 30-59 4 Severe decrease in GFR 15-29 5 Kidney failure <15 (or dialysis) 2 Desirable: <150 Borderline High: 150-199 High: 200-499 Very High: >500 3 Desirable: <200 Borderline High: 200-239 High: >239 4 Low: <40 Desirable: 40-60 High: >60 5 Desirable: <100 Near Optimal: 100-129 Borderline High: 130-159 High: 160-189 Very High: >189 6 Consistent with Previous Results Reported on 08/01/18 Platelet count confirmed by estimate 7 Because ethnic data is not always readily available, this report includes an eGFR for both -Americans and non- Americans. The National Kidney Disease Education Program (NKDEP) does not endorse the use of the MDRD equation for patients that are not between the ages of 18 and 70, are , have extremes of body size, muscle mass, or nutritional status, or are non- or non-. According to the National Kidney Foundation, irrespective of diagnosis, the stage of the disease is based on the level of kidney function: Stage Description GFR(mL/min/1.73 m(2)) 1 Kidney damage with normal or decreased GFR 90 2 Kidney damage with mild decrease in GFR 60-89 3 Moderate decrease in GFR 30-59 4 Severe decrease in GFR 15-29 5 Kidney failure <15 (or dialysis) 8 Platelet count confirmed by estimate Consistent with Previous Results Reported on 07/21/17 9 REFERENCE VALUE 0.3300-1.94 10 REFERENCE VALUE 0.5700-2.63 11 REFERENCE VALUE 0.2600-1.65 Test Performed by: [facility] [place] [address] 12 M-spike in gamma fraction. Size of monoclonal protein not changed significantly since 07/21/2017. Test Performed by: [facility] [place] [place] [address] 13 LEFT THIRD TOE 14 SEE RESULT BELOW Name: QUIN PROCTOR : [address]: Sandy Falk NP Acct: [id number] Unit: [id number] AGE: 87 Location: WOUND Re04/29/18 SEX: M Status: REG REF SPEC: [id number] RAKEL: 04/29/18-[address]: Sandy Falk NP REQ: [id number] RECD: 01/ STATUS: RES OTHR DR: Quin Layton III, MD _ SOURCE: [facility]: ORDERED: Fungal Cult Delfino COMMENTS: LEFT THIRD TOE Procedure Result Reported Site Fungal Cult Skin/Hair/Nails Preliminary 05/09/18- 9 ML No Growth Week 1 * ML - Main Lab . END OF REPORT DEPARTMENT OF PATHOLOGY, [address] [place] [address] Omi Leroy M.D. Director [facility] # [id number] 15 SEE RESULT BELOW Name: QUIN PROCTOR : [address]: Sandy Falk NP Acct: [id number] Unit: [id number] AGE: 87 Location: WOUND Re04/29/18 SEX: M Status: REG REF SPEC: [id number] RAKEL: 04/29/18-[address] 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 END OF REPORT DEPARTMENT OF PATHOLOGY, [address] [place] [address] Omi Leroy M.D. Director [facility] # [id number] 16 SEE RESULT BELOW Name: QUIN PROCTOR : [address]: Sandy Falk NP Acct: [id number] Unit: [id number] AGE: 87 Location: WOUND Re04/29/18 SEX: M Status: REG REF SPEC: [id number] RAKEL: 04/29/18-[address] [facility] [address]: Sandy Falk NP REQ: [id number] RECD: 04/29/187526 STATUS: RES [facility] DR: Quin Layton III, MD _ SOURCE: TOENAIL SPDESC: ORDERED: Fungal Cult Delfino COMMENTS: LEFT THIRD TOE Procedure Result Reported Site Fungal Cult Skin/Hair/Nails Preliminary 05/23/18- 1543 ML No Growth Week 3 * ML - Main Lab . END OF REPORT DEPARTMENT OF PATHOLOGY, [address] [place] [address] Omi Leroy M.D. Director [facility] # [id number] 17 SEE RESULT BELOW Name: QUIN PROCTOR : [address]: Sandy Falk NP Acct: [id number] Unit: [id number] AGE: 87 Location: WOUND Re04/29/18 SEX: M Status: REG REF SPEC: [id number] RAKEL: 04/29/181422 [facility] DR: Sandy Falk NP REQ: [id number] RECD: 04/29/188142 STATUS: [facility] DR: Quin Layton III, MD _ SOURCE: TOENAIL SPDESC: ORDERED: Fungal Cult Skn COMMENTS: LEFT THIRD TOE Procedure Result Reported Site Fungal Cult Skin/Hair/Nails Final 05/30/183 ML No Growth Week 4 * ML - Main Lab . END OF REPORT DEPARTMENT OF PATHOLOGY, [address] [place] [address] Omi Leroy M.D. Director [facility] # [id number] 18 RIGHT THIRD TOE 19 SEE RESULT BELOW Name: QUIN PROCTOR : [address]: Sandy Falk NP Acct: [id number] Unit: [id number] AGE: 87 Location: WOUND Re04/29/18 SEX: M Status: REG REF SPEC: [id number] RAKEL: 04/29/[address]: Sandy Falk NP REQ: [id number] RECD: 04/29/18 STATUS: RES [facility] DR: Quin Layton III, MD _ SOURCE: TOENAIL SPDESC: ORDERED: Fungal Cult Delfino COMMENTS: RIGHT THIRD TOE Procedure Result Reported Site Fungal Cult Skin/Hair/Nails Preliminary 05/09/18- 1406 ML No Growth Week 1 * ML - Main Lab . END OF REPORT DEPARTMENT OF PATHOLOGY, [address] [place] [address] Omi Leroy M.D. Director [facility] # [id number] 20 SEE RESULT BELOW Name: QUIN PROCTOR : [address]: Sandy Falk NP Acct: [id number] Unit: [id number] AGE: 87 Location: WOUND Re04/29/18 SEX: M Status: REG REF SPEC: [id number] RAKEL: 04/29/18-[address]: Sandy Falk NP REQ: [id number] RECD: 04/29/18946 STATUS: RES OT DR: Quin Layton III, MD _ SOURCE: TOENAIL [facility]: ORDERED: Fungal Cult Delfino COMMENTS: RIGHT THIRD TOE Procedure Result Reported Site Fungal Cult Skin/Hair/Nails Preliminary 05/16/18- 1210 ML No Growth Week 2 * ML - Main Lab . END OF REPORT DEPARTMENT OF PATHOLOGY, [address] [place] [address] Omi Leroy M.D. Director [facility] # [id number] 21 SEE RESULT BELOW Name: QUIN PROCTOR : [address]: Sandy Falk NP Acct: [id number] Unit: [id number] AGE: 87 Location: WOUND Re04/29/18 SEX: M Status: REG REF SPEC: [id number] RAKEL: 04/29/[address]: Sandy Falk ASSISTANT ASSOCIATE FULL PROFESSOR REQ: [id number] RECD: 04/29/18 STATUS: RES [facility] DR: Quin Layton III, MD _ SOURCE: TOENAIL SPDESC: ORDERED: Fungal Cult Skn COMMENTS: RIGHT THIRD TOE Procedure Result Reported Site Fungal Cult Skin/Hair/Nails Preliminary 05/23/18- 600 ML No Growth Week 3 * - Main Lab . END OF REPORT DEPARTMENT OF PATHOLOGY, [address] [place] [address] Omi Leroy M.D. Director [facility] # [id number] 22 SEE RESULT BELOW Name: QUIN PROCTOR : [address]: Sandy Falk NP Acct: [id number] Unit: [id number] AGE: 87 Location: WOUND Re04/29/18 SEX: M Status: REG REF SPEC: [id number] RAKEL: 04/29/[address] [facility] [address]: Sandy Falk NP REQ: [id number] RECD: 04/29/18192 STATUS: BRITTNEY OLS[facility] DR: Quin Layton III, MD _ SOURCE: TOENAIL SPDES: ORDERED: Fungal Cult Delfino COMMENTS: RIGHT THIRD TOE Procedure Result Reported Site Fungal Cult Skin/Hair/Nails Final 05/30/18- 1114 ML No Growth Week 4 * ML - Main Lab . END OF REPORT DEPARTMENT OF PATHOLOGY, [address] [place] [address] Omi Leroy M.D. Director [facility] # [id number] 23 L 3RD TOE 24 SEE RESULT BELOW Name: QUIN PROCTOR : [address]: Sandy Falk NP Acct: [id number] Unit: [id number] AGE: 87 Location: WOUND Re03/04/18 SEX: M Status: REG REF SPEC: [id number] RAKEL: 03/04/[address] [facility] [address]: Sandy Falk NP REQ: [id number] RECD: 03/04/18 STATUS: BRITTNEY OLS[facility] DR: Pop Santos MD _ SOURCE: TISSUE SPDESC: ORDERED: Tissue Cult/GS COMMENTS: L 3RD TOE Procedure Result Reported Site Tissue Gram Stain Final 03/04/18- 1640 ML No Neutrophils Observed No Organisms Seen Preparation By Direct Smear Tissue Culture Final 03/08/18- 1055 ML Organism 1 STAPHYLOCOCCUS EPIDERMIDIS Quantity 1+ 1. STAPHYLOCOCCUS EPIDERMIDIS M.I.C. RX --------- ------ Penicillin <=0.03 S Clindamycin <=0.25 S Erythromycin >=8 R Gentamicin <=0.5 S Linezolid 1 S Oxacillin <=0.25 S * Quinupristin/Dalfopristin <=0.25 S Rifampin <=0.5 S Tetracycline >=16 R Tigecycline <=0.12 S Vancomycin <=0.5 S Imipenem-Deduced S * Ampicillin/Sulbactam-Deduced S Cefazolin-Deduced S CONTINUED ON NEXT PAGE DEPARTMENT OF PATHOLOGY, [address] [place] [address] Omi Leroy M.D. Director [facility] # [id number] Patient: QUIN PROCTOR [id number] (Continued) Specimen: [id number] Collected: 03/04/18 Received: 03/04/18-1542 (Continued) Procedure Result Reported Site Tissue Culture Final (continued) * These antibiotics are not available in the [facility] Formul[facility] Contact the Microbiology Department for any additional antibiotic reporting. * ML - Main Lab . END OF REPORT DEPARTMENT OF PATHOLOGY, [address] [place] [address] Omi Leroy M.D. Director [facility] # [id number] 25 ADDITIONAL INFORMATION This test was developed and its performance characteristics determined by [facility] in a manner consistent with CLIA requirements. This test has not been cleared or approved by the U.S. Food and Drug Administration. Test Performed by: [facility] [address] [place] [address] 26 Because ethnic data is not always readily available, this report includes an eGFR for both -Americans and non- Americans. The National Kidney Disease Education Program (NKDEP) does not endorse the use of the MDRD equation for patients that are not between the ages of 18 and 70, are , have extremes of body size, muscle mass, or nutritional status, or are non- or non-. According to the National Kidney Foundation, irrespective of diagnosis, the stage of the disease is based on the level of kidney function: Stage Description GFR(mL/min/1.73 m(2)) 1 Kidney damage with normal or decreased GFR 90 2 Kidney damage with mild decrease in GFR 60-89 3 Moderate decrease in GFR 30-59 4 Severe decrease in GFR 15-29 5 Kidney failure <15 (or dialysis) 27 Desirable: <150 Borderline High: 150-199 High: 200-499 Very High: >500 28 Desirable: <200 Borderline High: 200-239 High: >239 29 Low: <40 Desirable: 40-60 High: >60 30 Desirable: <100 Near Optimal: 100-129 Borderline High: 130-159 High: 160-189 Very High: >189 31 Normal Range 180 to 914 Indeterminate Range 145 to 180 Deficient Range <145 32 Because ethnic data is not always readily available, this report includes an eGFR for both -Americans and non- Americans. The National Kidney Disease Education Program (NKDEP) does not endorse the use of the MDRD equation for patients that are not between the ages of 18 and 70, are , have extremes of body size, muscle mass, or nutritional status, or are non- or non-. According to the National Kidney Foundation, irrespective of diagnosis, the stage of the disease is based on the level of kidney function: Stage Description GFR(mL/min/1.73 m(2)) 1 Kidney damage with normal or decreased GFR 90 2 Kidney damage with mild decrease in GFR 60-89 3 Moderate decrease in GFR 30-59 4 Severe decrease in GFR 15-29 5 Kidney failure <15 (or dialysis) 33 Consistent with Previous Results Reported on 02/16/17 34 M-spike in gamma fraction. Size of monoclonal protein not changed significantly since 11/02/2016. Test Performed by: [address] [address] 35 >100 to <200 pg/mL: likely compensated congestive heart failure (CHF) 200 to 400 pg/mL: likely moderate CHF >400 pg/mL: likely moderate to severe CHF 36 Because ethnic data is not always readily available, this report includes an eGFR for both -Americans and non- Americans. The National Kidney Disease Education Program (NKDEP) does not endorse the use of the MDRD equation for patients that are not between the ages of 18 and 70, are , have extremes of body size, muscle mass, or nutritional status, or are non- or non-. According to the National Kidney Foundation, irrespective of diagnosis, the stage of the disease is based on the level of kidney function: Stage Description GFR(mL/min/1.73 m(2)) 1 Kidney damage with normal or decreased GFR 90 2 Kidney damage with mild decrease in GFR 60-89 3 Moderate decrease in GFR 30-59 4 Severe decrease in GFR 15-29 5 Kidney failure <15 (or dialysis) 37 Consistent with previous results on 10/25/16. 38 Because ethnic data is not always readily available, this report includes an eGFR for both -Americans and non- Americans. The National Kidney Disease Education Program (NKDEP) does not endorse the use of the MDRD equation for patients that are not between the ages of 18 and 70, are , have extremes of body size, muscle mass, or nutritional status, or are non- or non-. According to the National Kidney Foundation, irrespective of diagnosis, the stage of the disease is based on the level of kidney function: Stage Description GFR(mL/min/1.73 m(2)) 1 Kidney damage with normal or decreased GFR 90 2 Kidney damage with mild decrease in GFR 60-89 3 Moderate decrease in GFR 30-59 4 Severe decrease in GFR 15-29 5 Kidney failure <15 (or dialysis) 39 M-spike in gamma fraction. Size of monoclonal protein not changed significantly since 04/21/2016. Test Performed by: [address] [address] 40 Because ethnic data is not always readily available, this report includes an eGFR for both -Americans and non- Americans. The National Kidney Disease Education Program (NKDEP) does not endorse the use of the MDRD equation for patients that are not between the ages of 18 and 70, are , have extremes of body size, muscle mass, or nutritional status, or are non- or non-. According to the National Kidney Foundation, irrespective of diagnosis, the stage of the disease is based on the level of kidney function: Stage Description GFR(mL/min/1.73 m(2)) 1 Kidney damage with normal or decreased GFR 90 2 Kidney damage with mild decrease in GFR 60-89 3 Moderate decrease in GFR 30-59 4 Severe decrease in GFR 15-29 5 Kidney failure <15 (or dialysis) 41 Desirable <150 Borderline high 150-199 High 200-499 Very High >500 42 Desirable <200 Borderline high 200-239 High >239 43 Low <40 Desirable: 40-60 High: >60 44 Desirable: <100 mg/dL Near Optimal: 100-129 mg/dL Borderline High: 130-159 mg/dL High: 160-189 mg/dL Very High: >189 mg/dL 45 Consistent with previous results on 04/21/16. 46 Because ethnic data is not always readily available, this report includes an eGFR for both -Americans and non- Americans. The National Kidney Disease Education Program (NKDEP) does not endorse the use of the MDRD equation for patients that are not between the ages of 18 and 70, are , have extremes of body size, muscle mass, or nutritional status, or are non- or non-. According to the National Kidney Foundation, irrespective of diagnosis, the stage of the disease is based on the level of kidney function: Stage Description GFR(mL/min/1.73 m(2)) 1 Kidney damage with normal or decreased GFR 90 2 Kidney damage with mild decrease in GFR 60-89 3 Moderate decrease in GFR 30-59 4 Severe decrease in GFR 15-29 5 Kidney failure <15 (or dialysis) 47 PT IS FASTING 48 Desirable <150 Borderline high 150-199 High 200-499 Very High >500 49 Desirable <200 Borderline high 200-239 High >239 50 Low <40 Desirable: 40-60 High: >60 51 Desirable: <100 mg/dL Near Optimal: 100-129 mg/dL Borderline High: 130-159 mg/dL High: 160-189 mg/dL Very High: >189 mg/dL 52 Because ethnic data is not always readily available, this report includes an eGFR for both -Americans and non- Americans. The National Kidney Disease Education Program (NKDEP) does not endorse the use of the MDRD equation for patients that are not between the ages of 18 and 70, are , have extremes of body size, muscle mass, or nutritional status, or are non- or non-. According to the National Kidney Foundation, irrespective of diagnosis, the stage of the disease is based on the level of kidney function: Stage Description GFR(mL/min/1.73 m(2)) 1 Kidney damage with normal or decreased GFR 90 2 Kidney damage with mild decrease in GFR 60-89 3 Moderate decrease in GFR 30-59 4 Severe decrease in GFR 15-29 5 Kidney failure <15 (or dialysis) 53 PT IS FASTING 54 Consistent with previous results on 05/21/15. 55 Because ethnic data is not always readily available, this report includes an eGFR for both -Americans and non- Americans. The National Kidney Disease Education Program (NKDEP) does not endorse the use of the MDRD equation for patients that are not between the ages of 18 and 70, are , have extremes of body size, muscle mass, or nutritional status, or are non- or non-. According to the National Kidney Foundation, irrespective of diagnosis, the stage of the disease is based on the level of kidney function: Stage Description GFR(mL/min/1.73 m(2)) 1 Kidney damage with normal or decreased GFR 90 2 Kidney damage with mild decrease in GFR 60-89 3 Moderate decrease in GFR 30-59 4 Severe decrease in GFR 15-29 5 Kidney failure <15 (or dialysis) 56 FASTING 57 FASTING 58 Because ethnic data is not always readily available, this report includes an eGFR for both -Americans and non- Americans. The National Kidney Disease Education Program (NKDEP) does not endorse the use of the MDRD equation for patients that are not between the ages of 18 and 70, are , have extremes of body size, muscle mass, or nutritional status, or are non- or non-. According to the National Kidney Foundation, irrespective of diagnosis, the stage of the disease is based on the level of kidney function: Stage Description GFR(mL/min/1.73 m(2)) 1 Kidney damage with normal or decreased GFR 90 2 Kidney damage with mild decrease in GFR 60-89 3 Moderate decrease in GFR 30-59 4 Severe decrease in GFR 15-29 5 Kidney failure <15 (or dialysis) 59 Desirable <150 Borderline high 150-199 High 200-499 Very High >500 60 Desirable <200 Borderline high 200-239 High >239 61 Low <40 Desirable: 40-60 High: >60 62 Desirable: <100 mg/dL Near Optimal: 100-129 mg/dL Borderline High: 130-159 mg/dL High: 160-189 mg/dL Very High: >189 mg/dL 63 FASTING 64 This test was canceled by the client laboratory. Cell culture was performed so a processing fee will be charged. 65 07 Feb 2014 15:25 66 RESULT: primary thrombocytopenia 67 Locus and probes [Strategy;#nuclei;Class] 1p36.3(TP73), 1q21(CKS1B) [COPY#;50;LDT] 3cen (D3Z1), 7cen (D7Z1) [COPY#;50;ASR] 8q24 (3'MYC,5'MYC) [BAP;50;LDT] 9cen (D9Z1), 15cen (D15Z4) [COPY#;50;ASR] 11q13 (CCND1-XT), 14q32 (IGH-XT) [DFISH;50;ASR] 13q14 (RB1), 13q34 (LAMP1) [COPY#;50;ASR] 14q32 (3'IGH,5'IGH) [BAP;50;LDT] 17p13.1 (TP53), 17cen (D17Z1) [COPY#;50;ASR] Probe strategies include: DFISH=dual color, double fusion; BAP=break-apart probe; COPY#=region gain and loss. 68 Abnormality Result #Abn/Total Cells 14q32(IGH sep) Abnormal 15/15 +14(3'IGH/5'IGH)x3 Normal 0/15 t(11;14) CCND1/IGH fusion Abnormal 15/16 +11(CCND1-XTx3) Normal 0/16 -13(RB1,LAMP1)x1 Abnormal 17/21 13q-(RB1x1,SGOL8s8) Normal 0/21 +9(D9Z1x3) Normal 0/17 +15(R16W9b7) Normal 0/17 +3(D3Z1x3) Normal /20 +7(D7Z1x3) Normal 0/20 8q24(MYC sep) Normal 0/14 +1q(TP73x2,CPF1Ip0) Normal 0/16 +1(TP73,CKS1B)x3 Normal 0/16 NOMENCLATURE: nuc alison(CCND1-XTx3),(IGH-XTx3),(CCND1-XT con IGH-XTx2)/(RB1,LAMP1)x1 [124 total plasma cells identified] [16 total probes analyzed] 69 The result is abnormal and indicates a plasma cell clone with CCND1/IGH fusion, t(11;14) and monosomy 13. While these results likely represent an abnormal plasma cell clone, only 21 or fewer plasma cells were analyzed for each probe set and insufficient plasma cells were observed with probes for chromosome 17. Thus, it is unclear if sufficient plasma cells were evaluated to identify all the abnormalities associated with a plasma cell clone and a specific prognostic significance cannot be defined. Clinical and pathologic correlation is recommended. DISCLAIMER: Applicable to Analyte Specific Reagent (ASR) and Laboratory Developed Tests (LDT). This test was developed and its performance characteristics determined by [facility]. It has not been cleared or approved by the U.S. Food and Drug Administration. This FISH test does not rule out other chromosome abnormalities. 70 RESULT: Omi Ruvalcaba PhD 71 22 Feb 2014 15:48 Test Performed by: [place] [address] Carriage Rider: Jon Walker M.D. 72 A Whauek-Jvuavg-qrocnjd slide prepared from the flow cytometry specimen is examined. The specimen is sparsely cellular. It contains maturing hematopoietic precursors. There is no increase in lymphocytes or blasts. Plasma cells comprise <5% of the specimen cellularity. PDF Report available at: [email or web address] %Lymphs: 12% Results: Blasts: Not increased by CD45/side scatter and CD34. B-cells: No monotypic; normal expression pattern of CD19, CD10, surface kappa and lambda. T-cells/NK-cells: No aberrant phenotype by CD3 and CD16. Plasma cells: Monotypic lambda Express: CD38 and CD138. Do not express: CD19 or CD45. Estimated size: <1% total analyzed events Plasma cell panel: CD19, CD38, CD45, CD138, and cytoplasmic kappa and lambda light chains. Viability: Acceptable Viable lymphocytes (7-AAD): 99% Quality assessment: Specimen received within validated guidelines. 74 Bone marrow, flow cytometric immunophenotyping: Lambda light chain-restricted plasma cell population identified. Comment: Classification of plasma cell disorders requires correlation with clinical, laboratory, radiology, and pathology findings. Because of biases due to sampling and cell preparation for the flow cytometry assay, the proportion of phenotypic plasma cells as estimated in the current flow cytometry study may differ significantly from that determined by morphology. Moreover, the distribution of plasma cell infiltrates can vary considerably among different sample preparations; therefore, final determination of the proportion of plasma cells is deferred to the primary microscopic examination of the bone marrow aspirate and particularly biopsy slides. Correlation of the flow cytometry results with the bone marrow aspirate and biopsy findings, clinical history and other laboratory features is required for a definitive diagnosis. If desired, we can provide diagnostic services as part of a hematopathology consultation. Please contact the signing pathologist at if you have further questions regarding these analyses. Reviewed by: Donovan Falcon M.D. 05:01:19 ADDITIONAL INFORMATION Analyte Specific Reagent: This test was developed and its performance characteristics determined by [facility]. It has not been cleared or approved by the U.S. Food and Drug Administration. Test Performed by: [place] [address] Carriage Rider: Jon Walker M.D. 75 Consistent with previous results. 76 REFERENCE VALUE 1.21 - 2.70 Test Performed by: [place] [address] Carriage Rider: Jon Walker M.D. 77 Test Performed by: [place] [address] Carriage Rider: Jon Walker M.D. 78 REFERENCE VALUE 0.3300-1.94 79 REFERENCE VALUE 0.5700-2.63 80 REFERENCE VALUE 0.2600-1.65 Test Performed by: [place] [address] Carriage Rider: Jon Walker M.D. 81 Consistent with previous results. 82 Because ethnic data is not always readily available, this report includes an eGFR for both -Americans and non- Americans. The National Kidney Disease Education Program (NKDEP) does not endorse the use of the MDRD equation for patients that are not between the ages of 18 and 70, are , have extremes of body size, muscle mass, or nutritional status, or are non- or non-. According to the National Kidney Foundation, irrespective of diagnosis, the stage of the disease is based on the level of kidney function: Stage Description GFR(mL/min/1.73 m(2)) 1 Kidney damage with normal or decreased GFR 90 2 Kidney damage with mild decrease in GFR 60-89 3 Moderate decrease in GFR 30-59 4 Severe decrease in GFR 15-29 5 Kidney failure <15 (or dialysis) 83 Normal Range 180 to 914 Indeterminate Range 145 to 180 Deficient Range <145 84 This assay does not differentiate between reactivity due to a vaccine-induced immune response or an immune response induced by infection with HBV. 85 Test Performed by: [place] [address] Carriage Rider: Jayden Preciado III, M.D. 86 M-spike in gamma fraction. See Immunofixation. Test Performed by: [place] [address] Carriage Rider: Jon Walker M.D. 87 Monoclonal IgG lambda. C/W MGUS, early myeloma, amyloidosis, etc. Suggest 24-hr urine Monoclonal Protein Studies. Suggest Immunoglobulin Free Light Chains, Serum Test Performed by: [address] [address] Carriage Rider: oJn Walker M.D. 88 Because ethnic data is not always readily available, this report includes an eGFR for both -Americans and non- Americans. The National Kidney Disease Education Program (NKDEP) does not endorse the use of the MDRD equation for patients that are not between the ages of 18 and 70, are , have extremes of body size, muscle mass, or nutritional status, or are non- or non-. According to the National Kidney Foundation, irrespective of diagnosis, the stage of the disease is based on the level of kidney function: Stage Description GFR(mL/min/1.73 m(2)) 1 Kidney damage with normal or decreased GFR 90 2 Kidney damage with mild decrease in GFR 60-89 3 Moderate decrease in GFR 30-59 4 Severe decrease in GFR 15-29 5 Kidney failure <15 (or dialysis) 89 PT IS FASTING 90 Because ethnic data is not always readily available, this report includes an eGFR for both -Americans and non- Americans. The National Kidney Disease Education Program (NKDEP) does not endorse the use of the MDRD equation for patients that are not between the ages of 18 and 70, are , have extremes of body size, muscle mass, or nutritional status, or are non- or non-. According to the National Kidney Foundation, irrespective of diagnosis, the stage of the disease is based on the level of kidney function: Stage Description GFR(mL/min/1.73 m(2)) 1 Kidney damage with normal or decreased GFR 90 2 Kidney damage with mild decrease in GFR 60-89 3 Moderate decrease in GFR 30-59 4 Severe decrease in GFR 15-29 5 Kidney failure <15 (or dialysis) 91 Desirable <150 Borderline high 150-199 High 200-499 Very High >500 92 Desirable <200 Borderline high 200-239 High >239 93 Low <40 Desirable: 40-60 High: >60 94 Desirable <100 Near Optimal 100-129 Borderline high 130-159 High 160-189 Very High >189 95 REVIEWED BY OMI LEROY MD CBC and smear reviewed. Thrombocytopenia present without evidence of platelet clumping or satellitosis. 96 Consistent with previous results. 97 @02/17/13 1227: Slide Review added. RFLXG=SR. 98 Because ethnic data is not always readily available, this report includes an eGFR for both -Americans and non- Americans. The National Kidney Disease Education Program (NKDEP) does not endorse the use of the MDRD equation for patients that are not between the ages of 18 and 70, are , have extremes of body size, muscle mass, or nutritional status, or are non- or non-. According to the [employer], irrespective of diagnosis, the stage of the disease is based on the level of kidney function: Stage Description GFR(mL/min/1.73 m(2)) 1 Kidney damage with normal or decreased GFR 90 2 Kidney damage with mild decrease in GFR 60-89 3 Moderate decrease in GFR 30-59 4 Severe decrease in GFR 15-29 5 Kidney failure <15 (or dialysis) 99 HDL Interpretation: Undesirable: High Risk: Less than 40 mg/dL Desirable: Low Risk: Greater than 60 mg/dL 100 LDL Interpretation: Low Risk Optimal Level: LDL Less than 100 mg/dL Near or Above Optimal: LDL 100-129 mg/dL Borderline High Risk: LDL 130-159 mg/dL High Risk: LDL 160-189 mg/dL Very High Risk: LDL Greater than 189 mg/dL 101 Because ethnic data is not always readily available, this report includes an eGFR for both -Americans and non- Americans. The National Kidney Disease Education Program (NKDEP) does not endorse the use of the MDRD equation for patients that are not between the ages of 18 and 70, are , have extremes of body size, muscle mass, or nutritional status, or are non- or non-. According to the National [employer], irrespective of diagnosis, the stage of the disease is based on the level of kidney function: Stage Description GFR(mL/min/1.73 m(2)) 1 Kidney damage with normal or decreased GFR 90 2 Kidney damage with mild decrease in GFR 60-89 3 Moderate decrease in GFR 30-59 4 Severe decrease in GFR 15-29 5 Kidney failure <15 (or dialysis) 102 Because ethnic data is not always readily available, this report includes an eGFR for both -Americans and non- Americans. The National Kidney Disease Education Program (NKDEP) does not endorse the use of the MDRD equation for patients that are not between the ages of 18 and 70, are , have extremes of body size, muscle mass, or nutritional status, or are non- or non-. According to the National [employer], irrespective of diagnosis, the stage of the disease is based on the level of kidney function: Stage Description GFR(mL/min/1.73 m(2)) 1 Kidney damage with normal or decreased GFR 90 2 Kidney damage with mild decrease in GFR 60-89 3 Moderate decrease in GFR 30-59 4 Severe decrease in GFR 15-29 5 Kidney failure <15 (or dialysis) 103 LDL Interpretation: Low Risk Optimal Level: LDL Less than 100 MG/DL Near or Above Optimal: LDL 100-129 MG/DL Borderline High Risk: LDL 130-159 MG/DL High Risk: LDL 160-189 MG/DL Very High Risk: LDL Greater than 189 MG/DL 104 Platelet count confirmed by smear estimate. 105 Serum levels of PSA measured using the [employer] DXI Hybritech immunoassay should not be interpreted as absolute evidence of the presence or absence of disease. The PSA value should be used in conjunction with other pertinent clinical diagnostic procedures. The values obtained with different assay methods or kits cannot be used interchangeably. 106 HDL Interpretation: Undesirable: High Risk: Less than 40 MG/DL Desirable: Low Risk: Greater than 60 MG/DL 107 LDL Interpretation: Low Risk Optimal Level: LDL Less than 100 MG/DL Near or Above Optimal: LDL 100-129 MG/DL Borderline High Risk: LDL 130-159 MG/DL High Risk: LDL 160-189 MG/DL Very High Risk: LDL Greater than 189 MG/DL 108 Anion gap measurement may be of limited value in the presence of any alkalosis, especially in a combined acid base disorder. . 109 A metabolite of Naproxen, O-desmethylnaproxen, has been shown to interfere with the Jendrassik-Macho method for measuring total bilirubin. Samples from patients who have taken Naproxen have shown spurious elevation in total bilirubin levels. 110 Because ethnic data is not always readily available, this report includes an eGFR for both -Americans and non- Americans. The National Kidney Disease Education Program (NKDEP) does not endorse the use of the MDRD equation for patients that are not between the ages of 18 and 70, are , have extremes of body size, muscle mass, or nutritional status, or are non- or non-. According to the National [employer], irrespective of diagnosis, the stage of the disease is based on the level of kidney function: Stage Description GFR(mL/min/1.73 m(2)) 1 Kidney damage with normal or decreased GFR 90 2 Kidney damage with mild decrease in GFR 60-89 3 Moderate decrease in GFR 30-59 4 Severe decrease in GFR 15-29 5 Kidney failure <15 (or dialysis) 111 CHOLESTEROL INTERPRETATION: Desirable: Less than 200 MG/DL Borderline-High Risk: 200-239 MG/DL High-Risk: 240 MG/DL and over 112 HDL INTERPRETATION: Undesirable: High Risk: Less than 40 MG/DL Desirable: Low Risk: Greater than 60 MG/DL 113 LDL INTERPRETATION: Low Risk Optimal Level: LDL Less than 100 MG/DL Near or Above Optimal: LDL 100-129 MG/DL Borderline High Risk: LDL 130-159 MG/DL High Risk: LDL 160-189 MG/DL Very High Risk: LDL Greater than 189 MG/DL 114 CONSISTENT WITH PREVIOUS RESULTS 115 Thrombocytopenia 116 CONSISTENT WITH PREVIOUS RESULTS 117 Thrombocytopenia 118 Anion gap measurement may be of limited value in the presence of any alkalosis, especially in a combined acid base disorder. . 119 A metabolite of Naproxen, O-desmethylnaproxen, has been shown to interfere with the Jendrassik-Le Roy method for measuring total bilirubin. Samples from patients who have taken Naproxen have shown spurious elevation in total bilirubin levels. 120 Because ethnic data is not always readily available, this report includes an eGFR for both -Americans and non- Americans. The National Kidney Disease Education Program (NKDEP) does not endorse the use of the MDRD equation for patients that are not between the ages of 18 and 70, are , have extremes of body size, muscle mass, or nutritional status, or are non- or non-. According to the National [employer], irrespective of diagnosis, the stage of the disease is based on the level of kidney function: Stage Description GFR(mL/min/1.73 m(2)) 1 Kidney damage with normal or decreased GFR 90 2 Kidney damage with mild decrease in GFR 60-89 3 Moderate decrease in GFR 30-59 4 Severe decrease in GFR 15-29 5 Kidney failure <15 (or dialysis) 121 CHOLESTEROL INTERPRETATION: Desirable: Less than 200 MG/DL Borderline-High Risk: 200-239 MG/DL High-Risk: 240 MG/DL and over 122 HDL INTERPRETATION: Undesirable: High Risk: Less than 40 MG/DL Desirable: Low Risk: Greater than 60 MG/DL 123 LDL INTERPRETATION: Low Risk Optimal Level: LDL Less than 100 MG/DL Near or Above Optimal: LDL 100-129 MG/DL Borderline High Risk: LDL 130-159 MG/DL High Risk: LDL 160-189 MG/DL Very High Risk: LDL Greater than 189 MG/DL 124 Anion gap measurement may be of limited value in the presence of any alkalosis, especially in a combined acid base disorder. . 125 A metabolite of Naproxen, O-desmethylnaproxen, has been shown to interfere with the Jendrassik-Macho method for measuring total bilirubin. Samples from patients who have taken Naproxen have shown spurious elevation in total bilirubin levels. 126 Because ethnic data is not always readily available, this report includes an eGFR for both -Americans and non- Americans. The National Kidney Disease Education Program (NKDEP) does not endorse the use of the MDRD equation for patients that are not between the ages of 18 and 70, are , have extremes of body size, muscle mass, or nutritional status, or are non- or non-. According to the National [employer], irrespective of diagnosis, the stage of the disease is based on the level of kidney function: Stage Description GFR(mL/min/1.73 m(2)) 1 Kidney damage with normal or decreased GFR 90 2 Kidney damage with mild decrease in GFR 60-89 3 Moderate decrease in GFR 30-59 4 Severe decrease in GFR 15-29 5 Kidney failure <15 (or dialysis) 127 LDL INTERPRETATION: Low Risk Optimal Level: LDL Less than 100 MG/DL Near or Above Optimal: LDL 100-129 MG/DL Borderline High Risk: LDL 130-159 MG/DL High Risk: LDL 160-189 MG/DL Very High Risk: LDL Greater than 189 MG/DL 128 CHOLESTEROL INTERPRETATION: Desirable: Less than 200 MG/DL Borderline-High Risk: 200-239 MG/DL High-Risk: 240 MG/DL and over 129 LDL INTERPRETATION: Low Risk Optimal Level: LDL Less than 100 MG/DL Near or Above Optimal: LDL 100-129 MG/DL Borderline High Risk: LDL 130-159 MG/DL High Risk: LDL 160-189 MG/DL Very High Risk: LDL Greater than 189 MG/DL 130 Anion gap measurement may be of limited value in the presence of any alkalosis, especially in a combined acid base disorder. . 131 A metabolite of Naproxen, O-desmethylnaproxen, has been shown to interfere with the Jendrassik-Macho method for measuring total bilirubin. Samples from patients who have taken Naproxen have shown spurious elevation in total bilirubin levels. 132 Because ethnic data is not always readily available, this report includes an eGFR for both -Americans and non- Americans. The National Kidney Disease Education Program (NKDEP) does not endorse the use of the MDRD equation for patients that are not between the ages of 18 and 70, are , have extremes of body size, muscle mass, or nutritional status, or are non- or non-. According to the National [employer], irrespective of diagnosis, the stage of the disease is based on the level of kidney function: Stage Description GFR(mL/min/1.73 m(2)) 1 Kidney damage with normal or decreased GFR 90 2 Kidney damage with mild decrease in GFR 60-89 3 Moderate decrease in GFR 30-59 4 Severe decrease in GFR 15-29 5 Kidney failure <15 (or dialysis) 133 CHOLESTEROL INTERPRETATION: Desirable: Less than 200 MG/DL Borderline-High Risk: 200-239 MG/DL High-Risk: 240 MG/DL and over 134 HDL INTERPRETATION: Undesirable: High Risk: Less than 40 MG/DL Desirable: Low Risk: Greater than 60 MG/DL 135 LDL INTERPRETATION: Low Risk Optimal Level: LDL Less than 100 MG/DL Near or Above Optimal: LDL 100-129 MG/DL Borderline High Risk: LDL 130-159 MG/DL High Risk: LDL 160-189 MG/DL Very High Risk: LDL Greater than 189 MG/DL 136 Anion gap measurement may be of limited value in the presence of any alkalosis, especially in a combined acid base disorder. . 137 Because ethnic data is not always readily available, this report includes an eGFR for both -Americans and non- Americans. The National Kidney Disease Education Program (NKDEP) does not endorse the use of the MDRD equation for patients that are not between the ages of 18 and 70, are , have extremes of body size, muscle mass, or nutritional status, or are non- or non-. According to the National [employer], irrespective of diagnosis, the stage of the disease is based on the level of kidney function: Stage Description GFR(mL/min/1.73 m(2)) 1 Kidney damage with normal or decreased GFR 90 2 Kidney damage with mild decrease in GFR 60-89 3 Moderate decrease in GFR 30-59 4 Severe decrease in GFR 15-29 5 Kidney failure <15 (or dialysis) 138 CONSISTENT WITH PREVIOUS RESULTS 139 Thrombocytopenia 140 CHOLESTEROL INTERPRETATION: Desirable: Less than 200 MG/DL Borderline-High Risk: 200-239 MG/DL High-Risk: 240 MG/DL and over 141 LDL INTERPRETATION: Low Risk Optimal Level: LDL Less than 100 MG/DL Near or Above Optimal: LDL 100-129 MG/DL Borderline High Risk: LDL 130-159 MG/DL High Risk: LDL 160-189 MG/DL Very High Risk: LDL Greater than 189 MG/DL 142 Thrombocytopenia 143 Anion gap measurement may be of limited value in the presence of any alkalosis, especially in a combined acid base disorder. . 144 Note change in reference range as of 12/08/07. The change was based on recommendations from the [place] [employer]. 145 A metabolite of Naproxen, O-desmethylnaproxen, has been shown to interfere with the Jendrassik-Macho method for measuring total bilirubin. Samples from patients who have taken Naproxen have shown spurious elevation in total bilirubin levels. 146 Because ethnic data is not always readily available, this report includes an eGFR for both -Americans and non- Americans. The National Kidney Disease Education Program (NKDEP) does not endorse the use of the MDRD equation for patients that are not between the ages of 18 and 70, are , have extremes of body size, muscle mass, or nutritional status, or are non- or non-. According to the National [employer], irrespective of diagnosis, the stage of the disease is based on the level of kidney function: Stage Description GFR(mL/min/1.73 m(2)) 1 Kidney damage with normal or decreased GFR 90 2 Kidney damage with mild decrease in GFR 60-89 3 Moderate decrease in GFR 30-59 4 Severe decrease in GFR 15-29 5 Kidney failure <15 (or dialysis) 147 CHOLESTEROL INTERPRETATION: Desirable: Less than 200 MG/DL Borderline-High Risk: 200-239 MG/DL High-Risk: 240 MG/DL and over 148 HDL INTERPRETATION: Undesirable: High Risk: Less than 40 MG/DL Desirable: Low Risk: Greater than 60 MG/DL 149 LDL INTERPRETATION: Low Risk Optimal Level: LDL Less than 100 MG/DL Near or Above Optimal: LDL 100-129 MG/DL Borderline High Risk: LDL 130-159 MG/DL High Risk: LDL 160-189 MG/DL Very High Risk: LDL Greater than 189 MG/DL 150 * SERUM LEVELS OF PSA MEASURED USING THE [employer] ACCESS HYBRITECH IMMUNOASSAY SHOULD NOT BE INTERPRETED ABSOLUTE EVIDENCE OF THE PRESENCE OR ABSENCE OF DISEASE. THE PSA VALUE SHOULD BE USED IN CONJUNCTION WITH OTHER PERTINENT CLINICAL DIAGNOSTIC PROCEDURES. 151 PATIENT MAY HAVE RESULTS PER DOCTOR'S AUTHORIZATION. Questions regarding this report should be directed to your doctor. 152 CHOLESTEROL INTERPRETATION: Desirable: Less than 200 MG/DL Borderline-High Risk: 200-239 MG/DL High-Risk: 240 MG/DL and over 153 HDL INTERPRETATION: Undesirable: High Risk: Less than 40 MG/DL Desirable: Low Risk: Greater than 60 MG/DL 154 LDL INTERPRETATION: Low Risk Optimal Level: LDL Less than 100 MG/DL Near or Above Optimal: LDL 100-129 MG/DL Borderline High Risk: LDL 130-159 MG/DL High Risk: LDL 160-189 MG/DL Very High Risk: LDL Greater than 189 MG/DL 155 A metabolite of Naproxen, O-desmethylnaproxen, has been shown to interfere with the Jendrassik-Le Roy method for measuring total bilirubin. Samples from patients who have taken Naproxen have shown spurious elevation in total bilirubin levels. 156 * SERUM LEVELS OF PSA MEASURED USING THE Skillz ACCESS HYBRITECH IMMUNOASSAY SHOULD NOT BE INTERPRETED ABSOLUTE EVIDENCE OF THE PRESENCE OR ABSENCE OF DISEASE. THE PSA VALUE SHOULD BE USED IN CONJUNCTION WITH OTHER PERTINENT CLINICAL DIAGNOSTIC PROCEDURES. 157 FASTING 158 Anion gap measurement may be of limited value in the presence of any alkalosis, especially in a combined acid base disorder. . 159 Note change in reference range as of 12/08/07. The change was based on recommendations from the [place] [employer]. 160 Please note change in reference range effective 07 . 161 A metabolite of Naproxen, O-desmethylnaproxen, has been shown to interfere with the Jendrassik-Macho method for measuring total bilirubin. Samples from patients who have taken Naproxen have shown spurious elevation in total bilirubin levels. 162 Because ethnic data is not always readily available, this report includes an eGFR for both -Americans and non- Americans. The National Kidney Disease Education Program (NKDEP) does not endorse the use of the MDRD equation for patients that are not between the ages of 18 and 70, are , have extremes of body size, muscle mass, or nutritional status, or are non- or non-. According to the National Kid[employer], irrespective of diagnosis, the stage of the disease is based on the level of kidney function: Stage Description GFR(mL/min/1.73 m(2)) 1 Kidney damage with normal or decreased GFR 90 2 Kidney damage with mild decrease in GFR 60-89 3 Moderate decrease in GFR 30-59 4 Severe decrease in GFR 15-29 5 Kidney failure <15 (or dialysis) 163 CHOLESTEROL INTERPRETATION: Desirable: Less than 200 MG/DL Borderline-High Risk: 200-239 MG/DL High-Risk: 240 MG/DL and over 164 HDL INTERPRETATION: Undesirable: High Risk: Less than 40 MG/DL Desirable: Low Risk: Greater than 60 MG/DL 165 LDL INTERPRETATION: Low Risk Optimal Level: LDL Less than 100 MG/DL Near or Above Optimal: LDL 100-129 MG/DL Borderline High Risk: LDL 130-159 MG/DL High Risk: LDL 160-189 MG/DL Very High Risk: LDL Greater than 189 MG/DL 166 CONSISTENT WITH PREVIOUS RESULTS 167 Anion gap measurement may be of limited value in the presence of any alkalosis, especially in a combined acid base disorder. . 168 Note change in reference range as of 12/08/07. The change was based on recommendations from the [place] [employer]. 169 Please note change in reference range effective 07 . 170 CONSISTENT WITH PREVIOUS RESULTS 171 CHOLESTEROL INTERPRETATION: Desirable: Less than 200 MG/DL Borderline-High Risk: 200-239 MG/DL High-Risk: 240 MG/DL and over 172 HDL INTERPRETATION: Undesirable: High Risk: Less than 40 MG/DL Desirable: Low Risk: Greater than 60 MG/DL 173 LDL INTERPRETATION: Low Risk Optimal Level: LDL Less than 100 MG/DL Near or Above Optimal: LDL 100-129 MG/DL Borderline High Risk: LDL 130-159 MG/DL High Risk: LDL 160-189 MG/DL Very High Risk: LDL Greater than 189 MG/DL 174 * SERUM LEVELS OF PSA MEASURED USING THE Skillz ACCESS HYBRITECH IMMUNOASSAY SHOULD NOT BE INTERPRETED ABSOLUTE EVIDENCE OF THE PRESENCE OR ABSENCE OF DISEASE. THE PSA VALUE SHOULD BE USED IN CONJUNCTION WITH OTHER PERTINENT CLINICAL DIAGNOSTIC PROCEDURES. Procedures Date Code Description Status 10/11/2018 30399 EKG Tracing & Interpretation Completed 09/01/2018 03879 EKG Tracing & Interpretation Completed 04/29/2018 67828 Removal Devitalization Tissue Wound Less Than Equal 20 Completed Square CM 04/15/2018 12106 Removal Devitalization Tissue Wound Less Than Equal 20 Completed Square CM 03/28/2018 14199 Removal Devitalization Tissue Wound Less Than Equal 20 Completed Square CM 03/21/2018 48736 Removal Devitalization Tissue Wound Less Than Equal 20 Completed Square CM 03/21/2018 11680 EKG Tracing & Interpretation Completed 03/04/2018 47144 Debridement Skin,& sq Tissue Completed 02/25/2018 01624 Removal Devitalization Tissue Wound Less Than Equal 20 Completed Square CM 08/05/2017 76575 EKG Tracing & Interpretation Completed 02/17/2017 89280 Holter Monitor Review (24 hr)dr review & interp only Completed 02/15/2017 64474 ECG Monitor/Recording W/Visual Superimposition Scanning Completed 02/11/2017 85010 ECHO Transthoracic, Real-Time 2D With Doppler And Color Completed Flow 02/11/2017 40636 ECHO Transthoracic, Real-Time 2D With Doppler And Color Completed Flow 01/19/2017 28869 EKG Tracing & Interpretation Completed 10/25/2016 96739 EKG, Interpretation Only Completed 05/19/2016 77389 EKG Tracing & Interpretation Completed 01/09/2016 53077 EKG Tracing & Interpretation Completed 07/24/2015 43998 EKG Tracing & Interpretation Completed 02/21/2015 14116 EKG Tracing & Interpretation Completed 12/03/2014 49556 Holter Monitor Review (24 hr)dr review & interp only Completed 12/03/2014 32802 ECG Monitor/Recording W/Visual Superimposition Scanning Completed 11/28/2014 25120 Holter Monitor Review (24 hr)dr review & interp only Completed 11/28/2014 96204 ECG Monitor/Recording W/Visual Superimposition Scanning Completed 11/01/2014 08064 ECHO Stress Test Incl Perf Contiuous ekg Monitoring Completed W/Phys Superv 07/25/2014 39357 EKG Tracing & Interpretation Completed 04/24/2014 51544 ECHO Transthoracic, Real-Time 2D With Doppler And Color Completed Flow 02/15/2014 73055 EKG Tracing & Interpretation Completed 11/30/2013 27795 ECHO Stress Test Incl Perf Contiuous ekg Monitoring Completed W/Phys Superv 11/30/2013 07018 ECHO Stress Test Incl Perf Contiuous ekg Monitoring Completed W/Phys Superv 10/19/2013 [id number] Colonoscopy Completed 09/12/2013 22643 EKG Tracing & Interpretation Completed 06/15/2013 18261 ECHO Stress Test Incl Perf Contiuous ekg Monitoring Completed W/Phys Superv 06/15/2013 74073 ECHO Stress Test Incl Perf Contiuous ekg Monitoring Completed W/Phys Superv 05/15/2013 54245 EKG Tracing & Interpretation Completed 12/20/2012 94941 Stress Test Supervsn W/Out I/R Completed 12/20/2012 44482 Holter Monitor Review (24 hr)dr review & interp only Completed 12/20/2012 71716 Treadmill Interp/Report Only Completed 12/06/2012 16314 Echocardiography, Transesophageal, Real Time W/Image 2D Completed W/W/O M-M 12/06/2012 93693 Color Flow Doppler/Interp & Reprt Completed 12/06/2012 70656 Pulse Wave/Continuous-Interp.RPT Completed 11/24/2012 09686 ECHO Transthoracic, Real-Time 2D With Doppler And Color Completed Flow 09/15/2012 61323 EKG Tracing & Interpretation Completed 02/18/2012 36068 EKG Tracing & Interpretation Completed 01/15/2012 04358 ECHO Stress Test Incl Perf Contiuous ekg Monitoring Completed W/Phys Superv 01/15/2012 34215 ECHO Stress Test Incl Perf Contiuous ekg Monitoring Completed W/Phys Superv 08/27/2011 47578 EKG Tracing & Interpretation Completed 02/11/2011 22661 ECHO Transthoracic, Real-Time 2D With Doppler And Color Completed Flow 02/11/2011 42138 EKG Tracing & Interpretation Completed 07/16/2010 59270 ECHO Stress Test Incl Perf Contiuous ekg Monitoring Completed W/Phys Superv 05/20/2010 [id number] Colonoscopy Completed 03/05/2010 68546 ECHO Transthoracic, Real-Time 2D With Doppler And Color Completed Flow 02/20/2010 61811 EKG Tracing & Interpretation Completed 04/22/2009 24589 EKG Tracing & Interpretation Completed 11/21/2008 51497 ECHO Stress Test Incl Perf Contiuous ekg Monitoring Completed W/Phys Superv 11/06/2008 16463 ECHO Transthoracic, Real-Time 2D With Doppler And Color Completed Flow 10/03/2008 70102 EKG Tracing & Interpretation Completed 03/05/2008 33809 EKG Tracing & Interpretation Completed 02/15/2008 54270 Pulse Doppler & Continuous Wave Completed 02/15/2008 90556 Pulse Doppler & Continuous Wave Completed 02/15/2008 22051 Echocardiogram Completed 02/15/2008 08829 Echocardiogram Completed 02/15/2008 82871 Color Doppler Completed 02/15/2008 30736 Color Doppler Completed 02/15/2008 91281 Pulse Doppler & Continuous Wave Completed 07/26/2007 04437 Color Doppler Completed 07/26/2007 08364 Pulse Doppler & Continuous Wave Completed 07/26/2007 17095 Pulse Doppler & Continuous Wave Completed 07/26/2007 65773 Echocardiogram Completed 06/20/2007 53694 EKG Tracing & Interpretation Completed 06/20/2007 88157 EKG Tracing & Interpretation Completed 02/02/2007 09654 EKG Tracing & Interpretation Completed 02/02/2007 67665 EKG Tracing & Interpretation Completed 08/09/2006 67669 ECHO/Stress Completed 08/09/2006 82695 Stress Test Completed 08/09/2006 33119 Stress Test Completed 06/14/2006 31359 EKG Tracing & Interpretation Completed 06/03/2006 46412 Color Doppler Completed 06/03/2006 05046 Color Doppler Completed 06/03/2006 77915 Pulse Doppler & Continuous Wave Completed 06/03/2006 16845 Echocardiogram Completed 06/03/2006 43822 Echocardiogram Completed 08/14/2005 41796 ECHO/Stress Completed 08/14/2005 04266 Stress Test Completed 08/14/2005 41063 Stress Test Completed 07/22/2005 11154 Color Doppler Completed 07/22/2005 11449 Color Doppler Completed 07/22/2005 97537 Pulse Doppler & Continuous Wave Completed 07/22/2005 86517 Echocardiogram Completed 07/22/2005 60775 Echocardiogram Completed 06/15/2005 68838 EKG Tracing & Interpretation Completed 12/03/2004 12562 Color Doppler Completed 12/03/2004 46537 Pulse Doppler & Continuous Wave Completed 12/03/2004 83694 Echocardiogram Completed 11/27/2004 23921 EKG Tracing & Interpretation Completed 05/08/2004 09113 Color Doppler Completed 05/08/2004 04615 Pulse Doppler & Continuous Wave Completed 05/08/2004 24321 Echocardiogram Completed 02/05/2004 19952 Color Doppler Completed 02/05/2004 44538 Transesophageal Echocardiogram Completed 01/08/2004 90867 Color Doppler Completed 01/08/2004 19328 Pulse Doppler & Continuous Wave Completed 01/08/2004 88559 Echocardiogram Completed 06/13/2003 59547 EKG Tracing & Interpretation Completed 06/12/2003 59769 Color Doppler Completed 06/12/2003 52387 Pulse Doppler & Continuous Wave Completed 06/12/2003 67644 Echocardiogram Completed 02/05/2003 69046 ECHO/Stress Completed 02/05/2003 56384 Stress Test Completed 12/27/2002 77899 EKG Tracing & Interpretation Completed 11/30/2002 79360 Color Doppler Completed 11/30/2002 00545 Pulse Doppler & Continuous Wave Completed 11/30/2002 93597 Echocardiogram Completed 10/11/2002 80463 EKG Tracing & Interpretation Completed Encounters Type Date Location Provider Dx Diagnosis Office Visit 08/19/2018 Orthopedic Ruth Davila, M25.551 Pain in right hip 11:30a Services Of Thomas Resendiz M16.11 Unilateral primary osteoarthritis, right hip M76.62 Achilles tendinitis, left leg M25.521 Pain in right elbow 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 M.D. hip M16.11 Unilateral primary osteoarthritis, right hip M76.62 Achilles tendinitis, left leg Office 06/06/2018 [facility] Quin E. M25.521 Pain in right Visit 10:00a Medicine-Suyapa Layton M.D. elbow Office 04/18/2018 [facility] Kieran Baugh L97.521 Non-prs chronic Visit 3:00p Infectious Diseases [place], ulcer oth prt l M.D. 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 Office Visit 03/14/2018 3:15p Wound Care Sandy Falk L97.521 Non- prs chronic [facility] [place] [facility] FNPDAV[facility] ulcer oth prt l foot limited to brkdwn skin L03.818 Cellulitis of other sites Office Visit 03/07/2018 2:30p Wound Care Sandy Falk L97.511 Non- prs chronic Center AT [facility] [place] [facility] FNP-BC ulcer oth prt r foot limited to brkdwn skin 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 L03.818 Cellulitis of other sites Office Visit 02/14/2018 1:30p Wound Care Anu Sorto7.521 Non- prs chronic Center AT [facility] [place] [facility] FNPDAVID ulcer oth prt l foot limited to brkdwn skin L97.511 Non-prs chronic ulcer oth prt r foot limited to brkdwn skin I87.2 Venous insufficiency (chronic) (peripheral) Office Visit 01/31/2018 2:00p Wound Care Anu Sorto7.521 Non- prs chronic Center AT [facility] [place] [facility], [facility] ulcer oth prt l foot limited to brkdwn skin L97.511 Non-prs chronic ulcer oth prt r foot limited to brkdwn skin R09.89 Oth symptoms and signs involving the circ and resp systems Office Visit 01/24/2018 2:00p Wound Care Sandy Falk, L97.521 Non- prs chronic Center AT [facility] [place] [facility], [facility] ulcer oth prt l foot limited to brkdwn skin L97.511 Non-prs chronic ulcer oth prt r foot limited to brkdwn skin R22.42 Localized swelling, mass and lump, left lower limb R09.89 Oth symptoms and signs involving the circ and resp systems Office Visit 11/23/2017 2:00p [facility] Internal Pop Baugh I10 Essential ( primary) Lavern Santos M.D.,FACP hypertension Ccmob E03.9 Hypothyroidism, unspecified Office Visit 08/05/2017 10:00a [facility] Ian Ontiveros 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 R03.0 Elevated blood-pressure reading, w/o diagnosis of htn I35.0 Nonrheumatic aortic (valve) stenosis I42.1 Obstructive hypertrophic cardiomyopathy E78.00 Pure hypercholesterolemia, unspecified Office Visit 05/19/2017 [facility] Pop Baugh J11.89 Influenza due to 1:40p Lavern Santos M.D.,FACP unidentified Suite R influenza virus w oth manifest Office Visit 02/16/2017 [facility] Internal Pop Baugh Z01.810 Encounter for 2:00p Lavern Santos M.D.,FACP preprocedural Ccmob cardiovascular examination H25.011 Cortical age-related cataract, 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 R03.0 Elevated blood-pressure reading, w/o diagnosis of htn Office Visit 01/19/2017 11:00a [place] Ian Ontiveros I87.2 Venous Cardiology Martín Acevedo insufficiency (chronic) (peripheral) 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 depolarization I35.0 Nonrheumatic aortic (valve) stenosis E78.00 Pure hypercholesterolemia, unspecified R06.00 Dyspnea, unspecified I49.5 Sick sinus syndrome Office Visit 12/15/2016 10:00a [facility] Internal Pop Baugh L03.115 Cellulitis of Medicine - Martín Santos,FACP right lower limb Ccmob I87.2 Venous insufficiency (chronic) (peripheral) C90.00 Multiple myeloma not having achieved remission Z23 Encounter for immunization Office Visit 11/03/2016 10:20a [facility] Internal Andi Ritesh, L03.115 Cellulitis of Medicine - 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 leg Office Visit 08/25/2016 10:45a Orthopedic Jose Castellon [facility] Services Of Martín Mckay, right C.M.A. leg Office Visit 08/04/2016 11:00a Orthopedic Jose Castellon [facility] Of Martín Mckay, right C.M.A. leg Office Visit 07/21/2016 10:30a Orthopedic Jose Castellon [facility] Services Of Martín Mckay, right C.M.A. 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 E78.0 Pure hypercholesterolemia I10 Essential (primary) hypertension Office Visit 07/31/2015 11:00a [facility] YANI Wylie I49.5 Sick sinus syndrome I35.0 Nonrheumatic aortic (valve) stenosis 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 Office Visit 07/24/2015 10:00a [facility] Ian Ontiveros I49.5 Sick sinus Martín Acevedo syndrome E78.0 Pure hypercholesterolemia 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 H81.10 Benign paroxysmal vertigo, unspecified ear Office 02/21/2015 [place] Ian Ontiveros E78.0 Pure hypercholesterolemia Visit 3:10p Cardiology Martín Acevedo I35.0 Nonrheumatic aortic (valve) stenosis I49.5 Sick sinus syndrome R42 Dizziness and giddiness 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 R31.9 Hematuria, unspecified Office Visit 07/25/2014 William Ontiveros 414.01 Coronary 3:40p Cardiology Martín Acevedo Atherosclerosis [place] 424.1 Aortic Valve Disorder 272.0 Hypercholesterolemia Pure Office Visit 02/15/2014 William Ontiveros 414.01 Coronary 11:20a Cardiology Martín Acevedo Atherosclerosis [place] 401.1 Hypertension Benign 272.0 Hypercholesterolemia Pure 427.81 Sinoatrial Node Dysfunction 424.1 Aortic Valve Disorder Office Visit 01/04/2014 William Galdamez 414.01 Coronary 3:30p Cardiology PA Atherosclerosis [place] 401.1 Hypertension Benign 272.0 Hypercholesterolemia Pure 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 780.4 Dizziness & Giddiness 427.81 Sinoatrial Node Dysfunction 424.1 Aortic Valve Disorder 414.01 Coronary Atherosclerosis [place] Office Visit 06/15/2013 2:30p [facility] Ian Ontiveros 780.4 Dizziness & Martín Acevedo Giddiness 272.0 Hypercholesterolemia Pure 427.81 Sinoatrial Node Dysfunction 424.1 Aortic Valve Disorder 414.01 Coronary Atherosclerosis [place] Office Visit 05/15/2013 3:20p [facility] Ian Ontiveros 780.4 Dizziness & Martín Acevedo Giddiness 272.0 Hypercholesterolemia Pure 427.81 Sinoatrial Node Dysfunction 424.1 Aortic Valve Disorder Office Visit 12/06/2012 8:00a [facility] Ian Ontiveros 780.4 Dizziness & Martín Acevedo Giddiness 427.81 Sinoatrial Node Dysfunction 424.1 Aortic Valve Disorder 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 424.1 Aortic Valve Disorder 414.01 Coronary Atherosclerosis [place] Office Visit 08/27/2011 William Ontiveros 414.01 Coronary 3:20p Cardiology Martín Acevedo Atherosclerosis [place] 272.0 Hypercholesterolemia Pure 424.1 Aortic Valve Disorder 782.3 Edema Office 02/11/2011 William Ian FJeanne 272.0 Hypercholesterolemia Pure Visit 8:40a Lucien Acevedo M.D. 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 Atherosclerosis [place] 424.1 Aortic Valve Disorder 272.0 Hypercholesterolemia Pure Office 10/03/2008 William Ontiveros 272.0 Hypercholesterolemia Pure Visit 11:10a Lucien Acevedo M.D. 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 Atherosclerosis [place] V42.2 Transplant Heart Valve 272.0 Hypercholesterolemia Pure Office Visit 06/14/2006 William Ontiveros 414.01 Coronary 1:40p Lucien Acevedo M.D. 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 Office Visit 05/08/2004 8:40a [facility] Ian Ontiveros 424.1 Aortic Valve Martín Acevedo Disorder 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 Office Visit 06/13/2003 [place] Ian Ontiveros 414.01 Coronary 1:20p Cardiology Martín Acevedo Atherosclerosis [place] 782.3 Edema Office Visit 12/27/2002 10:40a [facility] Ian Ontiveros V43.3 Heart Valve Martín Acevedo Replaced By Other Means 414.01 Coronary Atherosclerosis [place] 780.4 Dizziness & Giddiness Office Visit 11/22/2002 2:00p [facility] Ian Ontiveros 424.1 Aortic Valve Martín Acevedo Disorder Office Visit 10/11/2002 2:00p [facility] Ian Ontiveros 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 at [facility] - Ian Acevedo M.D.E78.00 Pure hypercholesterolemia, [id number] Atherosclerotic heart disease of ramona coronary artery withFollow up:ov 7 mE03.9 Hypothyroidism, orthbkzzjmoN89.0 Aortic valve disorder
[2018-10-28 12:21] VITALS: BP 124/47
--- NOTE | 2018-10-28 12:46 | UC ---
Elbow Pain - HPI Summary HPI Summary: 87-year-old male who was trimming trees and bushes for approximately 3 hours on Wednesday, 2 days ago. Yesterday he states he did not have very much arm pain however today and during the night he had right elbow pain with mild swelling. He denies falling and denies any specific injury. He denies any chest pain, no difficulty breathing, no left arm pain, no nausea no radiation of the right arm pain. - History of Current Complaint Chief Complaint: UCUpperExtremity Stated Complaint: ARM PAIN Time Seen by Provider: 10/28/18 12:35 Hx Obtained From: Patient Onset/Duration: Still Present, Worse Since - Worse during the night. Severity Initially: Mild Severity Currently: Moderate Pain Intensity: 8 Character: Dull, Aching - Right elbow. Aggravating Factor(s): Movement - Increased pain with extension of his right arm. Alleviating Factor(s): Nothing Associated Signs And Symptoms: Positive: Swelling - Mild swelling of the right elbow. 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 - Surgical History Surgical History: Yes Surgery Procedure, Year, and Place: 2013 2 CORONARY STENTS [facility]. 2002 AORTIC HEART VALVE REPLACEMENT- [facility]CEL[facility] VALVE- -[facility]. 1937 TONSILLECTOMY - Family History Known Family History: Positive: None, Other - CVA - Social History Alcohol Use: Weekly Alcohol Amount: 1-2 GLASSES / WEEK Substance Use Type: None Smoking Status (MU): Never Smoked Tobacco Type: Cigarettes Have You Smoked in the Last Year: No - Immunization History Most Recent Influenza Vaccination: 2016 Most Recent Pneumonia Vaccination: never Review of Systems All Other Systems Reviewed And Are Negative: Yes Motor: Positive: Decreased ROM - Unable to completely extend his right forearm. Tenderness on palpation right elbow with some warmth to touch and mild swelling. Good peripheral pulses neuro sensation and capillary refill. Neurovascular: Positive: Negative Musculoskeletal: Positive: Decreased ROM, Edema - Patient has chronic left leg ankle and foot edema since having a left knee replacement. Is Patient Immunocompromised?: No Physical Exam Triage Information Reviewed: Yes Appearance: Well-Appearing, No Pain Distress, Well-Nourished Vital Signs: Initial Vital Signs Temp 98.8 F 10/28/18 12:16 Pulse 67 10/28/18 12:16 Resp 20 10/28/18 12:16 BP 124/47 10/28/18 12:16 Pulse Ox 100 10/28/18 12:16 Vital Signs Reviewed: Yes Musculoskeletal: Positive: Strength Intact, No Edema, Other: - Good peripheral pulses neuro sensation capillary refill, right elbow is tender on palpation and mildly swollen with some warmth to touch however no visible erythema. Neurological Exam: Normal Psychological Exam: Normal Skin Exam: Normal Elbow Pain Course/Dx - Course Course Of Treatment: Right elbow x-ray: 5 views of the right elbow demonstrates degenerative changes of the capitellum were capitellar radial joint and degenerative changes of the trochlear olecranon joint. Small joint effusion is noted. IMPRESSION: Degenerative changes are noted. Joint effusion is noted. Patient prefers not to have an arm sling. - Differential Dx/Diagnosis Provider Diagnosis: Right elbow tendonitis Discharge - Sign-Out/Discharge Documenting (check all that apply): Patient Departure All imaging exams completed and their final reports reviewed: Yes - Discharge Plan Condition: Fair Disposition: HOME Patient Education Materials: Tennis Elbow (ED) Referrals: Renny Spence MD [Medical Doctor] - Mike Layton MD [Primary Care Provider] - Additional Instructions: Apply heat to the sore area, avoid movements that cause pain. Follow up with an orthopedist in 3-4 days if no improvement. - Billing Disposition and Condition Condition: FAIR Disposition: Home
== END 2018-10-28 13:35 | disposition home or self-care (01) ==
LOC: UCEAST 12:08
DX: M77.9 Enthesopathy, unspecified (principal); E03.9 Hypothyroidism, unspecified; I10 Essential (primary) hypertension; Z88.0 Allergy status to penicillin
CPT/HCPCS: 99211; G0463

== ENCOUNTER 2020-04-16 14:44 | Inpatient (IN) ==
[2020-04-16 15:41] LABS: ABS Eosinophils 0.1 10^3/ul (0-0.6); ABS Lymphocytes 0.9 10^3/ul (1.0-4.8); ABS Monocytes 0.7 10^3/ul (0-0.8); ABS Neutrophils 4.5 10^3/ul (1.5-7.7); Eosinophil % 1.3 %; Hematocrit 37 % (42-52); Hemoglobin 12.7 g/dL (14.0-18.0); Mean Corpuscular HGB Conc 34 g/dL (31-36); Mean Corpuscular Hemoglobin 31 pg (27-31); Mean Corpuscular Volume 91 fL (80-94); Mean Platelet Volume 8.3 fL (7.4-10.4); Platelet Count 66 10^3/uL (150-450); Red Blood Count 4.12 10^6 /uL (4.18-5.48); Red Cell Distribution Width 14 % (10-15); White Blood Count 6.2 10^3/uL (3.5-10.8)
[2020-04-16 15:54] LABS: ALT 16 U/L (7-52); AST 18 U/L (13-39); Albumin/Globulin Ratio 1.2 (1-3); Alkaline Phosphatase 59 U/L (34-104); Anion Gap 6 mmol/L (2-11); BUN/Creatinine Ratio 18.5 (8-20); Blood Urea Nitrogen 22 mg/dL (6-24); CO2 Carbon Dioxide 24 mmol/L (22-32); Calcium 9.4 mg/dL (8.6-10.3); Chloride 107 mmol/L (101-111); Creatine Kinase 84 U/L (10-223); EGFR Non-African American 57.8 (>60); Globulin 3.3 g/dL (2-4); Glucose 93 mg/dL (70-100); Sodium 137 mmol/L (135-145); Total Protein 7.3 g/dL (6.4-8.9)
[2020-04-16 15:58] LABS: Troponin I 0.05 ng/mL (<0.03)
[2020-04-16 16:21] LABS: TSH Ultra Thyroid Stim Horm 2.63 mcIU/mL (0.34-5.60)
[2020-04-16] MEDS ORDERED: Gadoteridol (CONTRAST) 279.3 MG/ML 10 ML IV ONE (18:13)
[2020-04-16] MEDS ORDERED: Ondansetron 4 mg VIAL 2 MG/ML 2 ml VIAL IV PRN (22:33)
[2020-04-16] MEDS ORDERED: Dexamethasone IV 4 MG/ML VIAL 1 ml VIAL IV SLOW PU ONE (22:33)
[2020-04-16] MEDS ORDERED: NS 0.9% 1000 ml BAG 1,000 ML IV SCH (22:45)
[2020-04-16 23:56] LABS: Troponin I 0.05 ng/mL (<0.03)
[2020-04-17] MEDS: Iodixanol (CONTRAST) 320 MG/ML 100 ML SDV IV ONE ×2 (01:56→03:13)
[2020-04-17 02:46] LABS: Troponin I 0.04 ng/mL (<0.03)
[2020-04-17 06:34] LABS: ABS Lymphocytes 0.3 10^3/ul (1.0-4.8); ABS Neutrophils 3.3 10^3/ul (1.5-7.7); Eosinophil % 0.1 %; Hematocrit 35 % (42-52); Hemoglobin 12.2 g/dL (14.0-18.0); Lymphocyte % 7.2 %; Mean Corpuscular HGB Conc 35 g/dL (31-36); Mean Corpuscular Hemoglobin 31 pg (27-31); Mean Corpuscular Volume 90 fL (80-94); Mean Platelet Volume 8.4 fL (7.4-10.4); Platelet Count 56 10^3/uL (150-450); Red Blood Count 3.93 10^6 /uL (4.18-5.48); Red Cell Distribution Width 14 % (10-15); White Blood Count 3.7 10^3/uL (3.5-10.8)
[2020-04-17 06:41] LABS: INR 1.16 (0.82-1.09)
[2020-04-17 06:49] LABS: BUN/Creatinine Ratio 17.1 (8-20); EGFR African American 71.4 (>60); Potassium 4.2 mmol/L (3.5-5.0)
[2020-04-17] MEDS ORDERED: Iodixanol (CONTRAST) 320 MG/ML 100 ML SDV IV ONE (10:49)
[2020-04-17] MEDS ORDERED: Gadoteridol (CONTRAST) 279.3 MG/ML 10 ML IV ONE (16:03)
[2020-04-18 07:21] LABS: ABS Lymphocytes 0.4 10^3/ul (1.0-4.8); ABS Monocytes 0.6 10^3/ul (0-0.8); ABS Neutrophils 12.6 10^3/ul (1.5-7.7); Hematocrit 36 % (42-52); Hemoglobin 12.4 g/dL (14.0-18.0); Lymphocyte % 3.1 %; Mean Corpuscular HGB Conc 34 g/dL (31-36); Mean Corpuscular Hemoglobin 31 pg (27-31); Mean Corpuscular Volume 91 fL (80-94); Mean Platelet Volume 9.4 fL (7.4-10.4); Platelet Count 81 10^3/uL (150-450); Red Blood Count 3.97 10^6 /uL (4.18-5.48); Red Cell Distribution Width 14 % (10-15); White Blood Count 13.7 10^3/uL (3.5-10.8)
[2020-04-18 07:27] LABS: BUN/Creatinine Ratio 22.4 (8-20); Calcium 9.3 mg/dL (8.6-10.3); EGFR African American 51.2 (>60); EGFR Non-African American 42.3 (>60); Potassium 3.9 mmol/L (3.5-5.0)
[2020-04-18] MEDS ORDERED: NS 0.9% 1000 ml BAG 1,000 ML IV SCH (08:18)
[2020-04-18 16:21] VITALS: BP 129/49
== END 2020-04-18 16:30 | disposition home or self-care (01) | DRG 54 ==
LOC: ED 14:44 → MEDTELE 22:27
PROVIDERS: ADMIT Student in an Organized Health Care Education/Training Program; ATTEND Internal Medicine

== ENCOUNTER 2020-06-12 13:53 | Inpatient (IN) ==
[2020-06-12 15:39] LABS: Hematocrit 35 % (42-52); Hemoglobin 11.9 g/dL (14.0-18.0); Mean Corpuscular HGB Conc 34 g/dL (31-36); Mean Corpuscular Hemoglobin 31 pg (27-31); Mean Corpuscular Volume 92 fL (80-94); Mean Platelet Volume 7.5 fL (7.4-10.4); Platelet Count 46 10^3/uL (150-450); Red Blood Count 3.84 10^6 /uL (4.18-5.48); Red Cell Distribution Width 15 % (10-15); White Blood Count 11.8 10^3/uL (3.5-10.8)
[2020-06-12 16:02] LABS: Albumin/Globulin Ratio 1.3 (1-3); BUN/Creatinine Ratio 42.9 (8-20); C Reactive Protein 3.08 mg/L (<8.01); Calcium 8.5 mg/dL (8.6-10.3); EGFR Non-African American 57.8 (>60); Globulin 2.4 g/dL (2-4); Potassium 4.3 mmol/L (3.5-5.0); Total Bilirubin 0.5 mg/dL (0.2-1.0); Total Protein 5.4 g/dL (6.4-8.9)
[2020-06-12] MEDS ORDERED: Vancomycin 1,000 MG in NS 0.9% 250 ml 250 ML IV ONE (16:27)
[2020-06-12] MEDS ORDERED: NS 0.9% 1000 ml BAG 1,000 ML IV SCH ×2 (16:30→17:00)
[2020-06-12] MEDS ORDERED: Vancomycin per Pharmacy 1 EA NOTE FOLLOW UP SCH (17:00)
[2020-06-12] MEDS ORDERED: Dextrose 50% Syringe 50 ml 25 GM/50 ML SYRINGE IV PUSH PRN (17:04)
[2020-06-12 18:14] LABS: ABS Lymphocytes 0.5 10^3/ul (1.0-4.8); ABS Monocytes 0.8 10^3/ul (0-0.8); ABS Neutrophils 10.6 10^3/ul (1.5-7.7); Eosinophil % 0.1 %; Lymphocyte % 3.8 %; Nucleated Red Blood Cells % 0.1
[2020-06-12 18:21] LABS: Erythrocyte Sed Rate 19 mm/Hr (0-19)
[2020-06-12] MEDS ORDERED: metroNIDAZOLE IV 500 MG/100ML 500 MG/100 ML BAG IVPB SCH (18:30)
[2020-06-12] MEDS ORDERED: Cefepime 2 GM in Dextrose 2 GM/50 ML BAG IV SCH (18:30)
[2020-06-12] MEDS ORDERED: Gadoteridol (CONTRAST) 279.3 MG/ML 10 ML IV ONE (21:44)
[2020-06-12] MEDS: metroNIDAZOLE IV 500 MG/100ML 500 MG/100 ML BAG IVPB SCH (22:43)
[2020-06-13] MEDS: Vancomycin 750 MG in NS 0.9% 250 ML IVPB SCH ×2 (03:58→15:49)
[2020-06-13 05:08] LABS: ABS Lymphocytes 0.5 10^3/ul (1.0-4.8); ABS Monocytes 0.5 10^3/ul (0-0.8); ABS Neutrophils 7.6 10^3/ul (1.5-7.7); Eosinophil % 0.2 %; Hematocrit 33 % (42-52); Hemoglobin 11.4 g/dL (14.0-18.0); Lymphocyte % 5.9 %; Mean Corpuscular HGB Conc 35 g/dL (31-36); Mean Corpuscular Hemoglobin 31 pg (27-31); Mean Corpuscular Volume 91 fL (80-94); Mean Platelet Volume 7.3 fL (7.4-10.4); Platelet Count 39 10^3/uL (150-450); Red Blood Count 3.64 10^6 /uL (4.18-5.48); Red Cell Distribution Width 15 % (10-15); White Blood Count 8.7 10^3/uL (3.5-10.8)
[2020-06-13 05:20] LABS: BUN/Creatinine Ratio 47.8 (8-20); Calcium 8.3 mg/dL (8.6-10.3); EGFR African American 96.6 (>60); EGFR Non-African American 79.8 (>60); Potassium 4.4 mmol/L (3.5-5.0)
[2020-06-13] MEDS: metroNIDAZOLE IV 500 MG/100ML 500 MG/100 ML BAG IVPB SCH ×3 (06:09→23:11)
[2020-06-13] MEDS: Cefepime 2 GM in Dextrose 2 GM/50 ML BAG IV SCH ×2 (08:23→20:02)
[2020-06-13] MEDS ORDERED: Vancomycin Trough Check NOTE FOLLOW UP ONE (14:30)
[2020-06-14] MEDS: Vancomycin 750 MG in NS 0.9% 250 ML IVPB SCH (02:33)
[2020-06-14 05:16] LABS: EGFR African American 96.6 (>60); EGFR Non-African American 79.8 (>60)
[2020-06-14 05:23] LABS: Vancomycin Trough 31.4 mcg/mL
[2020-06-14] MEDS: metroNIDAZOLE IV 500 MG/100ML 500 MG/100 ML BAG IVPB SCH ×2 (05:59→13:25)
[2020-06-14] MEDS: Cefepime 2 GM in Dextrose 2 GM/50 ML BAG IV SCH (07:56)
[2020-06-14 11:17] VITALS: BP 118/49
[2020-06-14] MEDS ORDERED: Vancomycin Trough Check NOTE FOLLOW UP ONE (14:30)
== END 2020-06-14 16:54 | disposition home or self-care (01) | DRG 540 ==
LOC: ED 13:53 → SSU 16:48
PROVIDERS: ADMIT Internal Medicine; ATTEND Internal Medicine